=== PATIENT | male | born 1970 | race African-American/Black ===

== ENCOUNTER 2022-01-06 07:39 | Observation (INO) ==
--- NOTE | 2022-01-01 13:45 | Anesthesiology Consultation ---
Date of Service January 01, 2022 Assessment & Plan (1) Encounter for pre-operative examination: - check BSG am DOS. - COVID screening: Per para professional on 01/01/2022: Inmate, will need COVID test DOS. Matute ordered. Chart Review Chart Review: Acceptable Risk for Surgery and Patient NOT seen in Pre Admission Testing History Surgery Operation Date: 01/06/22 10:20 Proposed Procedures p Right Total Knee Arthroplasty - Jeffy Alyssa Cifuentes MD Height/Weight Height: 6 ft Weight: 112.945 kg Allergies Allergy/AdvReac Type Severity Reaction Status Date / Time morphine Allergy Unknown SCI MARY Verified 01/01/22 12:02 TWP LIST Pork/Porcine Containing Allergy Unknown SCI MARY Verified 01/01/22 12:02 Products TWP LIST tomato Allergy Unknown SCI MARY Verified 01/01/22 12:02 TWP LIST RED MEAT Allergy Unknown SCI MARY Uncoded 01/01/22 12:02 TWP LIST RED SAUCE Allergy Unknown SCI MARY Uncoded 01/01/22 12:02 TWP LIST Medications Home Medications Medication Instructions Recorded Confirmed Last Taken aspirin 81 mg tablet,delayed 81 mg PO DAILY 01/08/19 01/01/22 Unknown release (Aspir-) atorvastatin 40 mg tablet 40 mg PO DAILY 01/08/19 01/01/22 Unknown gabapentin 600 mg tablet 600 mg PO BID 01/08/19 01/01/22 01/08/19 insulin human U-100 NPH-regulr 30 unit subcut BID 01/08/19 01/01/22 01/08/19 06:30 70-30 mix 100 unit/mL subcutaneous susp (Humulin 70/30 U-100 Insulin) insulin regular human 100 unit/mL 1 sliding scale dose subcut UD 01/08/19 01/01/22 01/06/19 injection solution (Humulin R Regular U-100 Insulin) pantoprazole 40 mg tablet,delayed 40 mg PO BID 01/08/19 01/01/22 Unknown release amlodipine 10 mg tablet 10 mg PO DAILY 01/01/22 01/01/22 Unknown diclofenac sodium 50 mg 50 mg PO TID 01/01/22 01/01/22 Unknown tablet,delayed release gabapentin 800 mg tablet 800 mg PO BID 01/01/22 01/01/22 Unknown hydrochlorothiazide 25 mg tablet 25 mg PO DAILY 01/01/22 01/01/22 Unknown lisinopril 40 mg tablet 40 mg PO DAILY 01/01/22 01/01/22 Unknown metformin 1,000 mg tablet 1,000 mg PO BID 01/01/22 01/01/22 Unknown Past Medical History Medical History (Updated 01/01/22 @ 13:41 by Jordyn Nolan PA-C) Antisocial personality disorder Diabetes mellitus, type 2 IDDM GERD (gastroesophageal reflux disease) History of COVID-19 03/11/2020 Hyperlipidemia Hypertension 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 Sleep apnea Past Surgical History Surgical History H/O fasciotomy LEFT LEG +SKIN GRAFT Social History Smoking Status: Unknown if ever smoked Testing Laboratory Results 12/08/2021 WBC: 5.8 H/H: 14/42 PLATELETS: 349 SODIUM: 140 POTASSIUM: 4.4 CHLORIDE: 102 CO2: 26 BUN: 14 CREATININE: 1.1 GLUCOSE: 86 A1c: 7.4% PT: 10.9 PTT: 30 INR: 0.9 UA: straw color, clear, negative Electrocardiogram Date: 12/09/21 Sinus bradycardia, rate 58 bpm Chest X-Ray Date: 12/08/21 No radiographic evidence of active TB or acute cardiopulmonary disease
[~2022-01-06 07:39] MED LIST: ACETAMINOPHEN 500 MG TAB PO SCH; BUPIVACAINE 0.5 % 5 MG/1 ML PF 10ML VIAL ONE; CeleBREX 200 MG CAP PO SCH; EPINEPHrine INJ 1 MG/ML AMP ONE; LR 500ML BOLUS, THEN 15ML/HR IV SCH; LR 60ML/HR IV SCH; ROPIVACAINE 0.5% 5 MG/ML 30 ML VIAL ONE; ROPIVACAINE 0.5% HCL/PF 150 MG, BUPIVACAINE 0.75% MPF 20 ML, EPINEPHrine 0.15 MG, Ketor... INFIL SCH; Scopolamine 1 MG TDSY TD SCH; TRANEXAMIC ACID 1,000 MG **IV Intra-op IV SCH; TRANEXAMIC ACID 1,000 MG **IV Pre-op IV SCH; ceFAZolin 2000MG 2,000 MG/15 ML SYR IV SCH
[2022-01-06] MEDS ORDERED: MIDAZOLAM HCL 1 MG/ML 2ML VIAL ONE (08:08)
[2022-01-06] MEDS ORDERED: fentaNYL citrate 100 MCG/2 ML VIAL ONE (08:09)
--- NOTE | 2022-01-06 09:58 | History & Physical Bridge Note ---
Date of Service January 06, 2022 History & Physical Bridge Note I have examined the patient, reviewed the History & Physical and in the interval since the performance of the History & Physical I have noted the following changes of clinical significance: no changes noted Patient is aware of the risks, is asymptomatic, and tested negative for COVID- 19.
[2022-01-06] MEDS ORDERED: ORTHO JOINT ANESTHETIC ONE (10:13)
[2022-01-06] MEDS ORDERED: fentaNYL citrate 100 MCG/2 ML VIAL IV PRN (10:33)
[2022-01-06] MEDS ORDERED: PROMETHAZINE HCL 12.5 MG in SODIUM CHLORIDE 0.9% 50 ML IV PRN (10:33)
[2022-01-06] MEDS ORDERED: FLUMAZENIL 0.1 MG/1 ML 10 ML VIAL IV PRN (10:33)
[2022-01-06] MEDS ORDERED: ATROPINE SULFATE 0.1 MG/ML 10ML SYR IV PRN (10:33)
[2022-01-06] MEDS ORDERED: ePHEDrine sulfate 50 MG/ML AMP IV PRN (10:33)
[2022-01-06] MEDS ORDERED: ONDANSETRON INJ 2 MG/ML 2 ML VIAL IV PRN ×2 (10:33→15:55)
[2022-01-06] MEDS ORDERED: NALOXONE HCL 0.4 MG/1 ML VIAL/CARP IV PRN ×2 (10:33→15:55)
[2022-01-06] MEDS ORDERED: GLYCOPYRROLATE 0.2 MG/ML VIAL ONE (10:59)
[2022-01-06] MEDS ORDERED: ePHEDrine sulfate 50 MG/ML SYR ONE (10:59)
[2022-01-06] MEDS ORDERED: ONDANSETRON INJ 2 MG/ML 2 ML VIAL ONE (11:08)
[2022-01-06] MEDS ORDERED: ePHEDrine sulfate 50 MG/ML AMP ONE (11:08)
[2022-01-06] MEDS ORDERED: PROMETHAZINE HCL INJ 25 MG/ML 1 ML VIAL ONE (11:16)
[2022-01-06] MEDS ORDERED: DEXAMETHASONE SOD INJ 4 MG/ML VIAL ONE (11:16)
[2022-01-06] MEDS ORDERED: PROPOFOL IV EMULSION 10 MG/ML 20 ML VIAL IV ONE (11:29)
[2022-01-06] MEDS ORDERED: METOCLOPRAMIDE HCL INJ 5 MG/ML 2 ML VIAL ONE (11:31)
--- NOTE | 2022-01-06 13:07 | Operative Report ---
Post Operative Report Pre & Post Diagnosis Operation Date: 01/06/22 10:20 Pre-Op Diagnosis: Right knee osteoarthritis. Post-Op Diagnosis: Right knee osteoarthritis. I identified the patient and participated in the time-out.: Yes Procedure Operation Date: 01/06/22 10:20 Actual Procedures p Right Total Knee Arthroplasty(Right) - Jeffy Cifuentes MD Surgeon Jeffy Cifuentes MD Processing Tech Emory Shook PA-C (No fellow avail) Estimated Blood Loss 120 Findings See Below Fluids 2000 cc Specimens Right knee contents Anesthesia Type MAC Spinal Regional Complications none I attest to the content of the Intraoperative Record and any orders documented therein. Any exceptions are noted below.
--- NOTE | 2022-01-06 13:13 | Operative Report ---
Post Operative Report Pre & Post Diagnosis Operation Date: 01/06/22 10:20 Pre-Op Diagnosis: Right knee osteoarthritis. Post-Op Diagnosis: Right knee osteoarthritis. I identified the patient and participated in the time-out.: Yes Procedure Operation Date: 01/06/22 10:20 Actual Procedures p Right Total knee replacement[, imageless computer assisted navigation] - Jeffy Cifuentes MD Surgeon Jeffy Cifuentes MD Customs Agent Emory Shook PA-C (No fellow avail) Estimated Blood Loss 120 Findings See Below Examined Under Anesthesia: ROM -- There was 0 degrees to 125 degrees of flexion Ligamentous examination -- revealed stable Kirk, posterior drawer, varus and valgus stress at 0 and 30 degrees. [place] Type IV changes of Lateral compartment, Type III changes medial and patellofemoral compartments. Marginal and intercondylar Osteophytes. Fluids 2000 cc Specimens Right knee contents Anesthesia Type MAC Spinal Regional Complications none Indications This is a 51-year-old male who has clinical and radiographic findings consistent with osteoarthritis of the a right knee. I recommended that a right total knee replacement be performed. The patient understands the risks of surgery, which include but not limited to: bleeding, infection, re-operation, damage to nerves and arteries, continued knee pain, knee stiffness, DVT, and . The patient understands all of these instructions and explanations, all of his questions have been satisfactorily addressed and the patient has elected to proceed. Informed consent was signed. Description of Procedure IMPLANTS: 1. Femur: Triathlon #7 Right PS. 2. Tibia: Triathlon #6 [place]. 3. Insert: Triathlon #6 x 9 mm PS X3 poly. 4. Patella: Triathlon A35 x 10 mm X3 poly. 5. Palacos cement. Emory Shook PA-C is assisting with positioning, retracting, and closure due to fellow not available. Procedure: The patient was taken to the Operating Room and placed in the supine position after spinal and adductor canal nerve block was administered. My initials and a multidisciplinary time-out were used to identify the right leg as the correct operative limb. A tourniquet was placed high in the thigh. Prior to the incision, 2 grams of intravenous Ancef were given. The right leg was then prepped and draped in a standard sterile fashion. An Esmarch was used to exsanguinate the leg and the tourniquet was inflated to 250 mmHg. The planned mid-line 20 cm incision was created exposing the extensor mechanism. The medial parapatellar arthrotomy was made and the patella was everted. The patella was addressed first. It was prepared by reaming from 27 mm down to 17 mm. An A35 button was found to fit best. The peg holes were made in the standard fashion. The femur was addressed next and using computer assisted OrthoAlign with 3 degrees of flexion and 0 degrees of valgus, removing 10 mm in the standard fashion for the distal cut. The cut was made and the 4-in-1 cutting block for a size 7 femur was placed. These cuts and the cuts to place the box were made in the standard fashion. Our attention was then drawn to the tibia cut with using imageless computer assisted OrthoAlign, taking 2 mm from the lateral low side. There was sufficient extension and flexion gap to fit a 9 mm spacer. A #6 Tibial baseplate fit well. A trial with a 9 mm spacer showed excellent stability in both flexion and extension, with good ligament balance, a small lateral release allowed for thumbs free patellar tracking. Range of motion of 0-125 degrees. The tibial baseplate was prepped for the keel and stem. All components were removed. 90 ml of total knee cocktail were injected into the soft tissues and periosteum. All surfaces were copiously irrigated prior to placement of the components. The femoral component followed by Tibial baseplate were cemented in place and the 9 mm X3 poly was placed. Next, the patellar button was placed using the same cement. Once the cement had cured, the range of motion and stability were unchanged. The tourniquet was deflated. Hemostasis was obtained. The extensor mechanism was closed with 1-0 and 0 Vicryl with the knee bent approximately 60 degrees in a standard fashion. The peritenon and deep fascia was closed with 2-0 Vicryl. The subcutaneous layer was closed with 3-0 Vicryl. The skin was closed with Zipline and shield. The limb was cleaned and dried. 4x4 dressing was placed over top followed by ABDs, sterile Webril, and a foot to thigh John bandage. The patient was then transferred to the Recovery Room in stable condition. The sponge and needle counts were correct. POST-OP INSTRUCTIONS: The patient will be WBAT. The patient will be admitted to the hospital. Labs will be obtained during the stay. DVT prophylaxis will included aspirin for 6 weeks, TEDs, and mechanical foot pumps. The dressing will be changed prior to their discharge or postop day #2 and covered with a Silverlon dressing, whichever comes first as long as the incision as dry. I attest to the content of the Intraoperative Record and any orders documented therein. Any exceptions are noted below.
--- NOTE | 2022-01-06 13:25 | Operative Report ---
Post Operative Report Pre & Post Diagnosis Operation Date: 01/06/22 10:20 Pre-Op Diagnosis: Right knee osteoarthritis. Post-Op Diagnosis: Right knee osteoarthritis. I identified the patient and participated in the time-out.: Yes Procedure Operation Date: 01/06/22 10:20 Actual Procedures p Right Total Knee Arthroplasty(Right) - Jeffy Cifuentes MD Surgeon Shamir Cutler M.D. Technology Sales Consultant Emory Shook PA-C (No fellow avail) Estimated Blood Loss 120 Findings Consistent with Post-Op Diagnosis DJD right knee Specimens bone and soft tissue Anesthesia Type MAC Spinal Regional Description of Procedure Patient was taken to the operating room placed under IV sedation spinal anesthesia. He was given a peripheral nerve block preoperatively. He was given 2 g of IV Ancef for surgical prophylaxis. Time out was performed. He was prepped and draped in routine sterile fashion. I was present during the entire entire case and assisted with tissue retraction, positioning, implantation of hardware, cementing, hemostasis, closure and dressings. Please see Dr. Cifuentes's operative report for further detail. Patient was awakened and transferred to the recovery room in stable condition. I attest to the content of the Intraoperative Record and any orders documented therein. Any exceptions are noted below.
--- NOTE | 2022-01-06 13:53 | XRay Report ---
XR knee RT 1 or 2V routine CLINICAL HISTORY: Surgical Post Op TECHNIQUE: 2 views of the right knee were obtained. Comparison: Comparison is made to older radiograph 07/30/2020 FINDINGS: Patient is status post total knee arthroplasty with expected postsurgical changes including soft tiss ue swelling and subcutaneous emphysema. No periarticular lucency or hardware fracture is seen. IMPRESSION: Expected postoperative appearance status post placement of total knee arthroplasty. ACT 112: Negative or not required by law. Electronically signed by: Raffaele Webb M.D. 01/06/2022 1:51 PM
--- NOTE | 2022-01-06 14:32 | Anesthesiology Progress Note ---
Date of Service January 06, 2022 Anesthesia Post Procedure Vital Signs Vital Signs: Temp Pulse Pulse Resp BP BP Pulse Ox 01/06/22 14:29 36.4 C L 81 24 122/69 100 01/06/22 14:20 80 25 H 126/67 98 01/06/22 14:10 83 23 127/66 97 01/06/22 14:00 81 20 122/68 98 01/06/22 13:50 77 24 134/68 99 01/06/22 13:40 80 24 127/67 100 01/06/22 13:30 79 23 122/65 100 01/06/22 13:21 36.7 C 76 23 125/63 100 01/06/22 08:05 36.9 C 65 20 148/81 H 97 O2 Del Method O2 Flow Rate 01/06/22 14:29 Room Air 01/06/22 14:20 Room Air 01/06/22 14:10 Room Air 01/06/22 14:00 Room Air 01/06/22 13:50 Oxymask 2 01/06/22 13:40 Oxymask 5 01/06/22 13:30 Oxymask 5 01/06/22 13:21 Oxymask 5 01/06/22 08:05 Room Air Pain Intensity Left Knee: Pain Intensity: 8 Transfer of Care Handoff Completed per policy Notes Mental Status: alert / awake / arousable Patient Amnestic to Procedure: Yes Nausea / Vomiting: adequately controlled Pain: adequately controlled Airway Patency, RR, SpO2: stable & adequate BP & HR: stable & adequate Hydration State: stable & adequate Neuraxial Anesthesia: was administered and sensory block is resolving Anesthetic Complications: no major complications apparent
[2022-01-06] MEDS ORDERED: bisacodyL 10 MG SUPP PR PRN (15:55)
[2022-01-06] MEDS ORDERED: HYDROmorphone INJ 0.5 MG/0.5 ML SYR IV PRN (15:55)
[2022-01-06] MEDS ORDERED: TAMSULOSIN HCL 0.4 MG CAP PO PRN (15:55)
[2022-01-06] MEDS ORDERED: MAGNESIUM HYDROXIDE SUSP 30 ML UDC PO PRN (15:55)
[2022-01-06] MEDS ORDERED: METOCLOPRAMIDE HCL INJ 5 MG/ML 2 ML VIAL IV PRN (15:55)
[2022-01-06] MEDS ORDERED: diphenhydrAMINE 50 MG/ML VIAL IV PRN (15:55)
[2022-01-06] MEDS ORDERED: PHARMACY GLYCEMIC MGMT CONSULT PRN (15:55)
--- NOTE | 2022-01-06 16:10 | Hospitalist Consultation ---
Date of Consultation January 06, 2022 Assessment & Plan (1) Status post right knee replacement: -Patient is currently afebrile, hemodynamically stable, and stable on RA -Pain control, Antibiotics, DVT PPX, and IV fluids per the primary team -No reported complications -Agree with AM labs to monitor Hgb, renal function, and electrolytes -Agree with continuing Gabapentin (2) Heart murmur: -No apparent history of previously diagnosed murmur -Patient is asymptomatic and Euvolemic -Will get TTE during this admission to monitor for valvular abnormalities (3) Sleep apnea: -Ordered HS CPAP (4) Hypertension: -Agree with continuing Amlodipine, HCTZ, and Lisinopril tomorrow as long as patient is hemodynamically stable with stable renal function and electrolytes (5) Hyperlipidemia: -Continue atorvastatin (6) GERD (gastroesophageal reflux disease): -Continue BID pantoprazole (7) Diabetes mellitus, type 2: -Hold metformin -Will switch NPO to basal/bolus regimen -Monior BSG ACHS -Goal BSG between 110-140 -Will start with 11 units Lantus BID -Correction factor of 40 and Carb ration of 13 -Pharmacy glycemic consult placed by surgical team but they will take over tomorrow Plan The patient was seen with and discussed with Dr. Garcia at the time of the consult Supervising Physician Co-Signing Physician Notes Patient seen and examined, chart reviewed, case discussed with Lenny Cash PA-C and I agree with the assessment and plan as above except as otherwise noted Labs and images reviewed Roland is a 51-year-old male with a past medical history of hypertension, type 2 diabetes, GERD who presents for right knee TKA 2/2 right knee osteoarthritis. S/p right TKA 01/06/2022. Seen at bedside with SAVI Virk.Lavonne. Denies chest pain, chest pressure, SoB, difficulty breathing, fever, numbness, tingling, and weakness. Doing well post-op, hungry but no other concerns. CTAB/chest rise symmetrical, HR is regular 77 at time of assessment. Patient does have a 3/6 systolic murmur on exam which was not previously known to him. Denies history of valvular disease/septal defects. Follow-up echo pending. TKA: DVT prophylaxis, pain control, ambulation per primary team. Postoperatively normotensive, on room air, mild tachycardia likely reactive Type II DM: On NPH/regular 7030 30 units twice daily plus sliding scale RISK TECH. Will switch to basal bolus/SSI as noted, glucose checks AC/at bedtime, goal BSG [id number]. Lantus 11 twice daily, CF 40, ratio 13. Hold home metformin. Continue gabapentin. Hypertension: Resume lisinopril 40 mg 01/07 if creatinine normal and BP normal/high. Resume amlodipine 10 mg daily. Systolic murmur: Asymptomatic, no exercise limitation or chest pain. Echo pending GERD: Continue PPI twice daily HLD: Continue atorvastatin LORRAINE: CPAP nightly History of Present Illness Reason for Consultation: Post-op medical management Requesting Physician: Jeffy Cifuentes MD Attending Physician: Dr. gayla Garcia History of Present Illness Roland is a 51 year old male with a PMH significant for HTN, hyperlipidemia, obesity, DM II, RA, LORRAINE on HS CPAP, and GERD who presented to the [facility] OR on 01/06/22 for Right Total Knee Arthroplasty with Dr. Cifuentes. Per the post-op note, there were no reported intra-operative complications, EBL was listed as 120 mL, and anesthesia was listed as MAC Spinal Regional. At the time of the exam the patient was resting comfortably in bed in no acute distress. He states he is feeling good post-op, he is a little tired. He denies any pain at the procedure site at this time. He has no complaints at the time of the exam. When asked, he states he has never been told he has a heart murmur previously. He does not currently experience exercise intolerance or dyspnea on exertion. Please refer to Dr. Garcia's attestation for any changes to the treatment plan Allergies Allergy/AdvReac Type Severity Reaction Status Date / Time morphine Allergy Unknown SCI MARY Verified 01/06/22 07:58 TWP LIST Pork/Porcine Containing Allergy Unknown SCI MARY Verified 01/06/22 07:58 Products TWP LIST tomato Allergy Unknown SCI MARY Verified 01/06/22 07:58 TWP LIST RED MEAT Allergy Unknown SCI MARY Uncoded 01/06/22 07:58 TWP LIST RED SAUCE Allergy Unknown SCI MARY Uncoded 01/06/22 07:58 TWP LIST Home Medications Medication Instructions Recorded Confirmed Type aspirin 81 mg tablet,delayed 81 mg PO DAILY 01/08/19 01/06/22 History release (Aspir-) atorvastatin 40 mg tablet 40 mg PO DAILY 01/08/19 01/06/22 History gabapentin 600 mg tablet 600 mg PO BID 01/08/19 01/06/22 History insulin human U-100 NPH-regulr 30 unit subcut BID 01/08/19 01/06/22 History 70-30 mix 100 unit/mL subcutaneous susp (Humulin 70/30 U-100 Insulin) insulin regular human 100 unit/mL 1 sliding scale dose subcut UD 01/08/19 01/06/22 History injection solution (Humulin R Regular U-100 Insulin) pantoprazole 40 mg tablet,delayed 40 mg PO BID 01/08/19 01/06/22 History release amlodipine 10 mg tablet 10 mg PO DAILY 01/01/22 01/06/22 History gabapentin 800 mg tablet 800 mg PO BID 01/01/22 01/06/22 History hydrochlorothiazide 25 mg tablet 25 mg PO DAILY 01/01/22 01/06/22 History lisinopril 40 mg tablet 40 mg PO DAILY 01/01/22 01/06/22 History metformin 1,000 mg tablet 1,000 mg PO BID 01/01/22 01/06/22 History Patient History Medical History (Updated 01/06/22 @ 16:48 by Lenny Cash PA-C) Antisocial personality disorder Diabetes mellitus, type 2 IDDM GERD (gastroesophageal reflux disease) History of COVID-19 03/11/2020 Hyperlipidemia Hypertension 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 Sleep apnea Surgical History (Updated 01/06/22 @ 16:12 by Lenny Cash PA-C) H/O fasciotomy LEFT LEG +SKIN GRAFT Social History Smoking Status: Unknown if ever smoked Current Living Situation: Other Current Living Situation Comment: [facility] Feels Safe at Home: Yes Review of Systems Review of Systems: Denies current fever, chills, headache, changes in vision, hearing, taste, and smell, chest pain, SOB, cough, abdominal pain, nausea, vomiting, diarrhea, hematemesis, melena, dysuria, hematuria, and recent falls. All systems have been reviewed and are otherwise negative. Physical Exam Physical Exam: Physical Exam: General: In no acute distress, stated age, well-nourished, good hygiene HEENT: Normocephalic, atraumatic, no scleral icterus, pupils around round, symmetrical, and reactive to light, moist mucus membranes, -JVD, trachea midline, no thyromegaly Chest/Pulm: No respiratory distress, symmetrical chest expansion, clear breath sounds throughout Cardiac: RRR, 3/6 systolic murmur noted Abdomen: Negative for ascites and bruising, normoactive bowel sounds, soft, non-tender to palpation throughout Musculoskeletal: Patiient with right LE current wrapped and without signs of drainage. Patient with intact sensation and motor function in the BL lower extremities Extremities: Radial, dorsalis pedis, and posterior tibial pulses are intact and symmetrical, no edema noted in the BL LE's Skin: Warm, dry, no rashes , lesions, or scars noted Neuro: Alert and oriented to person, place, month, year, and president, no focal defects, CN II-XII tested and intact, finger to nose test negative, no tremors noted Psych: No acute distress, calm and cooperative during the exam Results & Data Results & Data ([facility]) Vital Signs (Past 12 Hours) Vital Signs Temp Pulse Pulse Resp BP BP Pulse Ox 01/06/22 15:00 94 H 23 128/68 97 01/06/22 14:30 36.4 C L 81 24 122/69 100 01/06/22 14:20 80 25 H 126/67 98 01/06/22 14:10 83 23 127/66 97 01/06/22 14:00 81 20 122/68 98 01/06/22 13:50 77 24 134/68 99 01/06/22 13:40 80 24 127/67 100 01/06/22 13:30 79 23 122/65 100 01/06/22 13:21 36.7 C 76 23 125/63 100 01/06/22 08:05 36.9 C 65 20 148/81 H 97 O2 Del Method O2 Flow Rate 01/06/22 15:00 Room Air 01/06/22 14:30 Room Air 01/06/22 14:20 Room Air 01/06/22 14:10 Room Air 01/06/22 14:00 Room Air 01/06/22 13:50 Oxymask 2 01/06/22 13:40 Oxymask 5 01/06/22 13:30 Oxymask 5 01/06/22 13:21 Oxymask 5 01/06/22 08:05 Room Air Diagnostic Findings Knee X-Ray 01/06/22 13:33 XR knee RT 1 or 2V routine CLINICAL HISTORY: Surgical Post Op TECHNIQUE: 2 views of the right knee were obtained. Comparison: Comparison is made to older radiograph 07/30/2020 FINDINGS: Patient is status post total knee arthroplasty with expected postsurgical changes including soft tissue swelling and subcutaneous emphysema. No periarticular lucency or hardware fracture is seen. IMPRESSION: Expected postoperative appearance status post placement of total knee arthroplasty. ACT 112: Negative or not required by law. Electronically signed by: Raffaele Webb M.D. 01/06/2022 1:51 PM PG Care Time/CCT Total # of Minutes Spent Total Time Spent with Patient: Total time spent is greater than 50% in coordination of care (as documented) at patient's floor/unit and/or counseling patient: Coding Level of Care Code 43886 Office/OBS Consult Lvl 4 History Comprehensive Exam Comprehensive Medical Decision Making Moderate Complexity Diagnoses Status post right knee replacement Z96.651 Heart murmur R01.1 Sleep apnea G47.30 Hypertension I10 Hyperlipidemia E78.5 GERD (gastroesophageal reflux disease) K21.9 Diabetes mellitus, type 2 E11.9
[2022-01-06] MEDS ORDERED: DEXTROSE 50% 50 ML SYRINGE IV PRN (16:14)
[2022-01-06] MEDS ORDERED: GLUCAGON FOR INJ 1 MG VIAL SQ PRN (16:14)
[2022-01-06] MEDS ORDERED: GLUCOSE 40% GEL 15 GM TUBE PO PRN (16:14)
[2022-01-06] MEDS ORDERED: GLUCOSE 10 TAB/TUBE PO PRN (16:14)
[2022-01-06] MEDS: FERROUS GLUCONATE 324 MG TAB PO SCH (16:53)
[2022-01-06] MEDS: ASCORBIC ACID 500 MG TAB PO SCH (16:53)
[2022-01-06] MEDS: ACETAMINOPHEN 500 MG TAB PO SCH ×2 (16:54→21:05)
[2022-01-06] MEDS: SODIUM CHLORIDE 0.9% 1000ML 1,000 ML IV SCH (16:54)
[2022-01-06] MEDS: Scopolamine CHECK PATCH PLACEMENT SCH (16:56)
[2022-01-06] MEDS: INSULIN ASPART PER UNIT SC SCH ×2 (17:37→21:01)
[2022-01-06] MEDS: oxyCODONE HCL IR 5 MG TAB (IMMEDIATE RELEASE) PO PRN (18:37)
[2022-01-06] MEDS: ceFAZolin 2000MG 2,000 MG/15 ML SYR IV SCH (18:52)
[2022-01-06] MEDS ORDERED: LANTUS PER UNIT CHARGE SQ SCH (21:00)
[2022-01-06] MEDS: SENNA 8.6 MG TAB PO SCH (21:03)
[2022-01-06] MEDS: ASPIRIN 81 MG ECTAB PO SCH (21:03)
[2022-01-06] MEDS: GABAPENTIN 800 MG TAB PO SCH (21:04)
[2022-01-06] MEDS: GABAPENTIN 600 MG TAB PO SCH (21:04)
[2022-01-06] MEDS: PANTOprazole 40 MG TAB PO SCH (21:04)
[2022-01-06] MEDS: DOCUSATE SODIUM 100 MG CAP PO SCH (21:04)
[2022-01-06] MEDS: HYDROmorphone INJ 1 MG/ML SYRINGE IV PRN (21:05)
--- NOTE | 2022-01-06 21:07 | Orthopedic Progress Note ---
Date of Service January 06, 2022 Assessment & Plan (1) Osteoarthritis of right knee: Plan: POD #0 s/p R TKA, doing as well as expected. Resume diabetic diet. WBAT with walker. OOB to chair. Continue pain control. Check labs tomorrow. Change dressing to Silverlon POD #2 or prior to discharge whichever comes first. DVT prophylaxis: TEDs 3 weeks, foot pumps while in hospital, ASA 81 mg BID for 6 weeks. PT/OT. D/C planning. Present on Admission?: Yes Admission and Anticipated Discharge Date Admission Date: January 06, 2022 Subjective Right knee pain Physical Exam Physical Exam: RLE: BCR < 2 sec. Sensation to light touch is slightly diminished distally, but improving. Wiggling ankle and toes. Calf soft and non- tender. Dressing is clean, dry, intact. Results & Data ([facility]) Vital Signs (Past 12 Hours) Vital Signs Temp Pulse Pulse Resp BP Pulse Ox O2 Del Method 01/06/22 18:25 36.7 C 83 18 152/74 H 98 Room Air 01/06/22 17:42 82 16 143/84 H 99 Room Air 01/06/22 16:30 37.1 C 81 17 132/73 98 Room Air 01/06/22 15:00 94 H 23 128/68 97 Room Air 01/06/22 14:30 36.4 C L 81 24 122/69 100 Room Air 01/06/22 14:20 80 25 H 126/67 98 Room Air 01/06/22 14:10 83 23 127/66 97 Room Air 01/06/22 14:00 81 20 122/68 98 Room Air 01/06/22 13:50 77 24 134/68 99 Oxymask 01/06/22 13:40 80 24 127/67 100 Oxymask 01/06/22 13:30 79 23 122/65 100 Oxymask 01/06/22 13:21 36.7 C 76 23 125/63 100 Oxymask O2 Flow Rate 01/06/22 18:25 01/06/22 17:42 01/06/22 16:30 01/06/22 15:00 01/06/22 14:30 01/06/22 14:20 01/06/22 14:10 01/06/22 14:00 01/06/22 13:50 2 01/06/22 13:40 5 01/06/22 13:30 5 01/06/22 13:21 5 Laboratory Results Laboratory Results POC Glucose 258 mg/dl (70-99) H 01/06/22 20:46 Nasal Screen MRSA (PCR) Negative (Negative) 01/06/22 17:02 SARS-CoV-2, RNA, NAAT NEGATIVE (NEGATIVE) 01/06/22 07:54 Blood Type O Positive 01/06/22 07:52 Antibody Screen NEGATIVE 01/06/22 07:52 Impressions Knee X-Ray 01/06/22 13:33 XR knee RT 1 or 2V routine CLINICAL HISTORY: Surgical Post Op TECHNIQUE: 2 views of the right knee were obtained. Comparison: Comparison is made to older radiograph 07/30/2020 FINDINGS: Patient is status post total knee arthroplasty with expected postsurgical changes including soft tissue swelling and subcutaneous emphysema. No periarticular lucency or hardware fracture is seen. IMPRESSION: Expected postoperative appearance status post placement of total knee arthroplasty. ACT 112: Negative or not required by law. Electronically signed by: Raffaele Webb M.D. 01/06/2022 1:51 PM
[2022-01-07] MEDS: Scopolamine CHECK PATCH PLACEMENT SCH ×3 (00:01→15:28)
[2022-01-07] MEDS: INSULIN ASPART PER UNIT SC SCH ×6 (00:02→21:13)
[2022-01-07] MEDS: HYDROmorphone INJ 1 MG/ML SYRINGE IV PRN (01:56)
[2022-01-07] MEDS: ceFAZolin 2000MG 2,000 MG/15 ML SYR IV SCH (02:38)
[2022-01-07] MEDS: SODIUM CHLORIDE 0.9% 1000ML 1,000 ML IV SCH (02:43)
[2022-01-07] MEDS: ACETAMINOPHEN 500 MG TAB PO SCH ×3 (04:27→21:15)
[2022-01-07] MEDS: GABAPENTIN 800 MG TAB PO SCH ×2 (07:35→21:12)
[2022-01-07] MEDS: PANTOprazole 40 MG TAB PO SCH ×2 (07:35→21:14)
[2022-01-07] MEDS: GABAPENTIN 600 MG TAB PO SCH ×2 (07:36→21:15)
[2022-01-07] MEDS: lisinopril 40 MG TAB PO SCH (07:37)
[2022-01-07] MEDS: ATORVASTATIN 40 MG TAB PO SCH (07:37)
[2022-01-07] MEDS: hydroCHLOROthiazide 25 MG TAB PO SCH (07:37)
[2022-01-07] MEDS: ASPIRIN 81 MG ECTAB PO SCH ×2 (07:37→21:14)
[2022-01-07] MEDS: FERROUS GLUCONATE 324 MG TAB PO SCH ×2 (07:38→15:50)
[2022-01-07] MEDS: ASCORBIC ACID 500 MG TAB PO SCH ×2 (07:38→15:50)
[2022-01-07] MEDS: amLODIPine BESYLATE 5 MG TAB PO SCH (07:38)
[2022-01-07] MEDS: MULTIVITAMIN TAB PO SCH (07:38)
[2022-01-07] MEDS: DOCUSATE SODIUM 100 MG CAP PO SCH ×2 (07:38→21:12)
[2022-01-07] MEDS: oxyCODONE HCL IR 5 MG TAB (IMMEDIATE RELEASE) PO PRN (07:44)
[2022-01-07 07:52] LABS: Hematocrit (blood only) 36.3 % (40.1-51.0); Hemoglobin 12.3 g/dl (14.0-18.0); Mean Corpuscular Hemoglobin 26.9 pg (25.0-34.0); Mean Corpuscular Hgb Conc 33.9 g/dL (32.0-36.0); Mean Corpuscular Volume 79.4 fL (80.0-100.0); Mean Platelet Volume 9.6 fL (9.4-12.4); Platelet Count 233 K/uL (130-400); RDW Coefficient of Variation 14.2 % (11.5-14.5); RDW Standard Deviation 41.3 fL (36.4-46.3); Red Blood Count 4.57 M/uL (4.63-6.08); White Blood Count 12.26 K/ul (4.8-10.8)
--- NOTE | 2022-01-07 07:54 | Hospitalist Progress Note ---
Date of Service January 07, 2022 Assessment & Plan (1) Status post right knee replacement: Plan: POD#1 s/p Right Total Knee Arthroplasty(Right) - Jeffy Cifuentes MD. EBL 120cc H/h 13.9/41/2 pre-op --> h/h 12.3/36.3 WBC elevation likely secondary to surgery/stress/steroids. Afebrile Pain control/bowel regimen/PT/OT per primary service -> did get pain meds ~730 am and worked with PT around 1030. Did order 1x now dose oxycodone for pain control, attempting to limit IV pain medications as able. DVT Proph - ASA 81mg BID by primary service ECHO pending for murmur on exam without prior known history -- appears to have aortic stenosis on exam, however +S2, no angina/syncope/dyspnea reported. --> ECHO without significant aortic stenosis. LV mildly dilated. EF 60-65%. murmur could have been exacerbated by acute blood loss anemia as well Holding HCTZ until tomorrow, lisinopril resumed as kidney function stable PT/OT consulted -- notes not yet in but did witness patient working with therapy this morning and likely would benefit from short term inpatient rehab (patient wanting to go as well). Alerted CM, to assist. (2) Heart murmur: Plan: No apparent history of previously diagnosed murmur, ?worsened given anemia Iron panel checked due to MCV 79.4 w/o iron deficiency, no known hx thalassemia or other ECHO w/o significant valvular abnormalities Patient is asymptomatic and Euvolemic No symptoms (3) Sleep apnea: Plan: HS CPAP (4) Hypertension: Plan: BP elevations 2nd to pain Continues on amlodipine, lisinopril HCTZ to resume in AM given minimal dehydration on exam (5) Hyperlipidemia: Plan: Continue atorvastatin (6) GERD (gastroesophageal reflux disease): Plan: Continue BID pantoprazole (7) Diabetes mellitus, type 2: Plan: A1c 7.5 Holding metformin/insulin on admit Pharmacy on consult for glycemic management given steroids w/ surgery BSG elevation after steroids, 223 at 4am, improved to 182 on recent check Monitor BSG AC/HS Plan Thank you for allowing hospitalist service to participate in the care of Mr Freeman. Contacted CM regarding possible need (and want by patient/guards) for at least short inpatient rehab. They will look into this. Hospitalist service will sign off at this time. Please call with any questions/concerns. Admission and Anticipated Discharge Date Admission Date: January 06, 2022 Supervising Physician Co-Signing Physician Notes PA Supervision Note: I did not personally see or examine the patient today, but I verified all connell points of SAVI Spence's assessment and plan with the following exceptions/additions: Na+ 133 but when corrected for hyperglycemia, is in normal range at 135. Ok to resume HCTZ in AM. Pharmacy managing glucose. Subjective Eval this morning. Had been given pain medications around 8am but just recently worked with therapy and reporting pain 10/10 to the right knee. Just got fresh ice, requesting something for pain. Asked RN to provide 10mg x1 PO oxycodone. Now order placed. No CP/SOB. ECHO done this morning but not yet read. No CP/SOB/syncopal episodes reported. Discussed if any significant valvular heart disease will arrange f/u cards outpatient. Denies any known personal/family history of thalassemia. Eating/drinking now issues. +BS on exam. Per discussion with patient/guards, inquiring about inpatient rehab, possibly 2 weeks. Short staffed [facility] and prior prisoners who completed 2 weeks seemed to be back to their usual self in 2-3 months. Will touch base with CM based on PT recommendations. Sopalamine patch to L ear. Review of Systems Review of Systems: All systems reviewed & are unremarkable except as noted in HPI & below Physical Exam Physical Exam: General: WD/WN tall male laying flat in bed, guards at bedside, NAD but reporting moderate-severe R knee pain, ice pack in place HEENT: Head normocephalic, scopolamine patch behind L ear, trachea midline without deviation, mm slightly dry CV: RRR, +2-3/6 systolic murmur with radiation to RUSB, no pitting edema/calf tenderness, cap refill <3 seconds, pulses palpable GI: +BS, distended, nontender : no roberts MSK/Neuro: moves all extremities, no focal deficit, follows commands dressing to RIGHT knee c/d/i, dorsiflexion/plantar flexion intact, NVI, toes mobile, pulses palpable, ice pack in place Psych: Alert, oriented x 3, cooperative Results & Data Results & [facility] ([facility]) Vital Signs (Past 12 Hours) Vital Signs Temp Pulse Pulse Pulse Resp BP Pulse Ox 01/07/22 04:01 36.6 C 64 18 142/74 H 97 01/07/22 00:07 72 24 96 01/06/22 23:50 36.6 C 72 20 147/78 H 96 O2 Del Method 01/07/22 04:01 Room Air 01/07/22 00:07 01/06/22 23:50 BiPAP Laboratory Results 01/07/22 01/07/22 01/07/22 Range/Units 08:12 07:32 07:32 WBC (4.8-10.8) K/ul RBC (4.63-6.08) M/uL Hgb (14.0-18.0) g/dl Hct (40.1-51.0) % MCV (80.0-100.0) fL MCH (25.0-34.0) pg MCHC (32.0-36.0) g/dL RDW Std Deviation (36.4-46.3) fL RDW Coeff of Alda (11.5-14.5) % Plt Count (130-400) K/uL MPV (9.4-12.4) fL Sodium (136-145) mmol/L Potassium (3.5-5.1) mmol/L Chloride (98-107) mmol/L Carbon Dioxide (21-32) mmol/L Anion Gap (3-11) BUN (6-23) mg/dl Creatinine (0.6-1.4) mg/dl Est Cr Clr Drug Dosing ml/min Est GFR ( Amer) ml/min Est GFR (Non-Af Amer) ml/min BUN/Creatinine Ratio (10-20) Glucose (70-99(Fasting)) mg/dl POC Glucose 182 H (70-99) mg/dl Estimat Average Glucose 169 mg/dl Hemoglobin A1c 7.5 H (4.5-5.6) % Calcium (8.5-10.1) mg/dl Iron 90 (35-175) mcg/dl TIBC 262 (250-450) mcg/dl Unsaturated IBC 172 (155-355) mcg/dl Transferrin % Sat 34 (20-50) % Ferritin 35.1 (8-388) ng/ml Nasal Screen MRSA (PCR) (Negative) 01/07/22 01/07/22 01/07/22 Range/Units 07:32 07:32 04:03 WBC 12.26 H (4.8-10.8) K/ul RBC 4.57 L (4.63-6.08) M/uL Hgb 12.3 L (14.0-18.0) g/dl Hct 36.3 L (40.1-51.0) % MCV 79.4 L (80.0-100.0) fL MCH 26.9 (25.0-34.0) pg MCHC 33.9 (32.0-36.0) g/dL RDW Std Deviation 41.3 (36.4-46.3) fL RDW Coeff of Alda 14.2 (11.5-14.5) % Plt Count 233 (130-400) K/uL MPV 9.6 (9.4-12.4) fL Sodium 133 L (136-145) mmol/L Potassium 4.3 (3.5-5.1) mmol/L Chloride 101 (98-107) mmol/L Carbon Dioxide 25 (21-32) mmol/L Anion Gap 7 (3-11) BUN 19 (6-23) mg/dl Creatinine 1.16 (0.6-1.4) mg/dl Est Cr Clr Drug Dosing 97.0 ml/min Est GFR ( Amer) 83.5 ml/min Est GFR (Non-Af Amer) 72.0 ml/min BUN/Creatinine Ratio 16.4 (10-20) Glucose 210 H (70-99(Fasting)) mg/dl POC Glucose 223 H (70-99) mg/dl Estimat Average Glucose mg/dl Hemoglobin A1c (4.5-5.6) % Calcium 9.0 (8.5-10.1) mg/dl Iron (35-175) mcg/dl TIBC (250-450) mcg/dl Unsaturated IBC (155-355) mcg/dl Transferrin % Sat (20-50) % Ferritin (8-388) ng/ml Nasal Screen MRSA (PCR) (Negative) 01/06/22 01/06/22 01/06/22 Range/Units 23:48 20:46 17:02 WBC (4.8-10.8) K/ul RBC (4.63-6.08) M/uL Hgb (14.0-18.0) g/dl Hct (40.1-51.0) % MCV (80.0-100.0) fL MCH (25.0-34.0) pg MCHC (32.0-36.0) g/dL RDW Std Deviation (36.4-46.3) fL RDW Coeff of Alda (11.5-14.5) % Plt Count (130-400) K/uL MPV (9.4-12.4) fL Sodium (136-145) mmol/L Potassium (3.5-5.1) mmol/L Chloride (98-107) mmol/L Carbon Dioxide (21-32) mmol/L Anion Gap (3-11) BUN (6-23) mg/dl Creatinine (0.6-1.4) mg/dl Est Cr Clr Drug Dosing ml/min Est GFR ( Amer) ml/min Est GFR (Non-Af Amer) ml/min BUN/Creatinine Ratio (10-20) Glucose (70-99(Fasting)) mg/dl POC Glucose 247 H 258 H (70-99) mg/dl Estimat Average Glucose mg/dl Hemoglobin A1c (4.5-5.6) % Calcium (8.5-10.1) mg/dl Iron (35-175) mcg/dl TIBC (250-450) mcg/dl Unsaturated IBC (155-355) mcg/dl Transferrin % Sat (20-50) % Ferritin (8-388) ng/ml Nasal Screen MRSA (PCR) Negative (Negative) 01/06/22 01/06/22 Range/Units 16:45 13:24 WBC (4.8-10.8) K/ul RBC (4.63-6.08) M/uL Hgb (14.0-18.0) g/dl Hct (40.1-51.0) % MCV (80.0-100.0) fL MCH (25.0-34.0) pg MCHC (32.0-36.0) g/dL RDW Std Deviation (36.4-46.3) fL RDW Coeff of Alda (11.5-14.5) % Plt Count (130-400) K/uL MPV (9.4-12.4) fL Sodium (136-145) mmol/L Potassium (3.5-5.1) mmol/L Chloride (98-107) mmol/L Carbon Dioxide (21-32) mmol/L Anion Gap (3-11) BUN (6-23) mg/dl Creatinine (0.6-1.4) mg/dl Est Cr Clr Drug Dosing ml/min Est GFR ( Amer) ml/min Est GFR (Non-Af Amer) ml/min BUN/Creatinine Ratio (10-20) Glucose (70-99(Fasting)) mg/dl POC Glucose 210 H 176 H (70-99) mg/dl Estimat Average Glucose mg/dl Hemoglobin A1c (4.5-5.6) % Calcium (8.5-10.1) mg/dl Iron (35-175) mcg/dl TIBC (250-450) mcg/dl Unsaturated IBC (155-355) mcg/dl Transferrin % Sat (20-50) % Ferritin (8-388) ng/ml Nasal Screen MRSA (PCR) (Negative) PG Care Time/CCT Total # of Minutes Spent Total Time Spent with Patient: Total time spent is greater than 50% in coordination of care (as documented) at patient's floor/unit and/or counseling patient: Coding Level of Care Code 27907 Subseq Obs Care Lvl 3 Diagnoses Status post right knee replacement Z96.651 Heart murmur R01.1 Sleep apnea G47.30 Hypertension I10 Hyperlipidemia E78.5 GERD (gastroesophageal reflux disease) K21.9 Diabetes mellitus, type 2 E11.9
[2022-01-07 08:23] LABS: BUN Creatinine Ratio 16.4 (10-20); Est GFR (African American) 83.5 ml/min; Potassium 4.3 mmol/L (3.5-5.1)
[2022-01-07] MEDS: LANTUS PER UNIT CHARGE SQ SCH ×2 (08:50→21:10)
[2022-01-07 09:20] LABS: Estimated Average Glucose 169 mg/dl; Hemoglobin A1C 7.5 % (4.5-5.6)
--- NOTE | 2022-01-07 09:22 | Orthopedic Progress Note ---
Date of Service January 07, 2022 Assessment & Plan (1) Status post right knee replacement: Plan: POD1 s/p total knee arthroplasty WBAT with walker PT/OT Diet - regular Appreciate medicine management, echo ordered by medicine that is pending. Lisinopril/HCTZ currently being held pending labs Frequently ice and elevate with blankets stacked under ankle DVT prophylaxis: ASA 81mg BID x 6 weeks, TEDS x 3 weeks, foot pumps while in hospital Pain control: Tylenol 1000mg q 8hrs, oxycodone 5-10mg q4-6 hrs for moderate pain Vitamin C and Iron supplementation BID x 2 weeks Dressing: will change dressing to Mepilex dressing prior to discharge, patient can leave in-tact until f/u Discharge back to detention - will see this afternoon how patient does with PT and if he is medically stable for discharge pending echo and labs Follow up as scheduled with [facility] in 2 weeks Admission and Anticipated Discharge Date Admission Date: January 06, 2022 Subjective Pt was seen and examined bedside. POD #1 s/p RTKA. Pt was admitted last night for observation. BP 161/81 otherwrise Vitals are stable. Medicine consulted for medical management. Murmur noted on exam and echo ordered, pending. X-rays show normal post operative changed. Pt reports they are doing well but having some pain. He says the oxycodone does not do much for him. They are tolerating PO intake and voiding adequate amounts. Will be working with PT/OT. Endorses some tingling in his distal leg. Pt denies F/C, N/V/D, SOB, CP. Physical Exam Physical Exam: General: Pt laying in hospital bed AA&O, in NAD, calm and cooperative during exam Lower Extremity: Dressing in tact and not saturated.Pt is able to wiggle his toes. He has difficult time doing AROM of ankle. He is unable to do SLR this morning. Calf supple and non tender. NVI with sensation to light touch distally. Lower extremity noted to have good color and temperature with no signs of vascular or lymphatic insufficiency. Results & Data ([facility]) Vital Signs (Past 12 Hours) Vital Signs Temp Pulse Pulse Pulse Resp BP Pulse Ox 01/07/22 08:17 36.5 C 68 17 161/81 H 99 01/07/22 04:01 36.6 C 64 18 142/74 H 97 01/07/22 00:07 72 24 96 01/06/22 23:50 36.6 C 72 20 147/78 H 96 O2 Del Method 01/07/22 08:17 Room Air 01/07/22 04:01 Room Air 01/07/22 00:07 01/06/22 23:50 BiPAP Laboratory Results 01/07/22 01/07/22 01/07/22 Range/Units 08:12 07:32 07:32 WBC (4.8-10.8) K/ul RBC (4.63-6.08) M/uL Hgb (14.0-18.0) g/dl Hct (40.1-51.0) % MCV (80.0-100.0) fL MCH (25.0-34.0) pg MCHC (32.0-36.0) g/dL RDW Std Deviation (36.4-46.3) fL RDW Coeff of Alda (11.5-14.5) % Plt Count (130-400) K/uL MPV (9.4-12.4) fL Sodium 133 L (136-145) mmol/L Potassium 4.3 (3.5-5.1) mmol/L Chloride 101 (98-107) mmol/L Carbon Dioxide 25 (21-32) mmol/L Anion Gap 7 (3-11) BUN 19 (6-23) mg/dl Creatinine 1.16 (0.6-1.4) mg/dl Est Cr Clr Drug Dosing 97.0 ml/min Est GFR ( Amer) 83.5 ml/min Est GFR (Non-Af Amer) 72.0 ml/min BUN/Creatinine Ratio 16.4 (10-20) Glucose 210 H (70-99(Fasting)) mg/dl POC Glucose 182 H (70-99) mg/dl Estimat Average Glucose Pending Hemoglobin A1c Pending Calcium 9.0 (8.5-10.1) mg/dl Nasal Screen MRSA (PCR) (Negative) Blood Type Antibody Screen 01/07/22 01/07/22 01/06/22 Range/Units 07:32 04:03 23:48 WBC 12.26 H (4.8-10.8) K/ul RBC 4.57 L (4.63-6.08) M/uL Hgb 12.3 L (14.0-18.0) g/dl Hct 36.3 L (40.1-51.0) % MCV 79.4 L (80.0-100.0) fL MCH 26.9 (25.0-34.0) pg MCHC 33.9 (32.0-36.0) g/dL RDW Std Deviation 41.3 (36.4-46.3) fL RDW Coeff of Alda 14.2 (11.5-14.5) % Plt Count 233 (130-400) K/uL MPV 9.6 (9.4-12.4) fL Sodium (136-145) mmol/L Potassium (3.5-5.1) mmol/L Chloride (98-107) mmol/L Carbon Dioxide (21-32) mmol/L Anion Gap (3-11) BUN (6-23) mg/dl Creatinine (0.6-1.4) mg/dl Est Cr Clr Drug Dosing ml/min Est GFR ( Amer) ml/min Est GFR (Non-Af Amer) ml/min BUN/Creatinine Ratio (10-20) Glucose (70-99(Fasting)) mg/dl POC Glucose 223 H 247 H (70-99) mg/dl Estimat Average Glucose Hemoglobin A1c Calcium (8.5-10.1) mg/dl Nasal Screen MRSA (PCR) (Negative) Blood Type Antibody Screen 01/06/22 01/06/22 01/06/22 Range/Units 20:46 17:02 16:45 WBC (4.8-10.8) K/ul RBC (4.63-6.08) M/uL Hgb (14.0-18.0) g/dl Hct (40.1-51.0) % MCV (80.0-100.0) fL MCH (25.0-34.0) pg MCHC (32.0-36.0) g/dL RDW Std Deviation (36.4-46.3) fL RDW Coeff of Alda (11.5-14.5) % Plt Count (130-400) K/uL MPV (9.4-12.4) fL Sodium (136-145) mmol/L Potassium (3.5-5.1) mmol/L Chloride (98-107) mmol/L Carbon Dioxide (21-32) mmol/L Anion Gap (3-11) BUN (6-23) mg/dl Creatinine (0.6-1.4) mg/dl Est Cr Clr Drug Dosing ml/min Est GFR ( Amer) ml/min Est GFR (Non-Af Amer) ml/min BUN/Creatinine Ratio (10-20) Glucose (70-99(Fasting)) mg/dl POC Glucose 258 H 210 H (70-99) mg/dl Estimat Average Glucose Hemoglobin A1c Calcium (8.5-10.1) mg/dl Nasal Screen MRSA (PCR) Negative (Negative) Blood Type Antibody Screen 01/06/22 01/06/22 Range/Units 13:24 07:52 WBC (4.8-10.8) K/ul RBC (4.63-6.08) M/uL Hgb (14.0-18.0) g/dl Hct (40.1-51.0) % MCV (80.0-100.0) fL MCH (25.0-34.0) pg MCHC (32.0-36.0) g/dL RDW Std Deviation (36.4-46.3) fL RDW Coeff of Alda (11.5-14.5) % Plt Count (130-400) K/uL MPV (9.4-12.4) fL Sodium (136-145) mmol/L Potassium (3.5-5.1) mmol/L Chloride (98-107) mmol/L Carbon Dioxide (21-32) mmol/L Anion Gap (3-11) BUN (6-23) mg/dl Creatinine (0.6-1.4) mg/dl Est Cr Clr Drug Dosing ml/min Est GFR ( Amer) ml/min Est GFR (Non-Af Amer) ml/min BUN/Creatinine Ratio (10-20) Glucose (70-99(Fasting)) mg/dl POC Glucose 176 H (70-99) mg/dl Estimat Average Glucose Hemoglobin A1c Calcium (8.5-10.1) mg/dl Nasal Screen MRSA (PCR) (Negative) Blood Type O Positive Antibody Screen NEGATIVE
[2022-01-07 10:26] LABS: Ferritin 35.1 ng/ml (8-388)
[2022-01-07] MEDS ORDERED: oxyCODONE HCL IR 5 MG TAB (IMMEDIATE RELEASE) PO STA (10:49)
--- NOTE | 2022-01-07 13:22 | Pharmacy Report ---
Pharmacy Glycemic Short Note 2 - Date of Service January 07, 2022 - Glycemic Short BSG Results (Last 24 hours): 01/06/22 01/06/22 01/06/22 13:24 16:45 20:46 Glucose POC Glucose 176 H 210 H 258 H 01/06/22 01/07/22 01/07/22 23:48 04:03 07:32 Glucose 210 H POC Glucose 247 H 223 H 01/07/22 01/07/22 08:12 12:01 Glucose POC Glucose 182 H 195 H OUTPATIENT ANTIDIABETIC REGIMEN: * Humulin 70/30 - 30 units BID * Humulin R TIDM * metformin 1 gm PO BID * HbA1C = 7.5% (01/07/22) ASSESSMENT: * Mr Freeman is a 51 y/o M with a PMH of T2DM who presents for knee replacement. * Patient received dexamethasone 4 mg IV intraop. His BSGs yesterday, POD 0, were 276-136-176-258 mg/dL and overnight were 247-223 mg/dL. He received 9 units overnight. * Fasting today is 182 mg/dL. * Will start Lantus weight-based stress of 2 for 20 units BID. * Novolog weight-based stress of 2 for CF with tight CR due to steroid use. * Hold metformin and consider initiation on 01/08/22. PLAN FOR INPATIENT GLYCEMIC CONTROL: * Hold outpatient oral diabetes medications * Basal insulin * Lantus 20 units SQ BID * Bolus insulin * NovoLog per scale ACHS or Q6hrs while NPO * Goal Range: Low 110 mg/dL - High 140 mg/dL * Correction Factor: 20 mg/dL/unit * Nutritional / Prandial insulin per carb ratio of 1 unit per 5 grams CHO consumed
--- NOTE | 2022-01-07 15:26 | Orthopedic Progress Note ---
Date of Service January 07, 2022 Assessment & Plan (1) Status post right knee replacement: Plan: POD1 s/p total knee arthroplasty WBAT with walker PT/OT Diet - regular Appreciate medicine input, echo normal, lisinopril resumed Frequently ice and elevate with blankets stacked under ankle DVT prophylaxis: ASA 81mg BID x 6 weeks, TEDS x 3 weeks, foot pumps while in hospital Pain control: Tylenol 1000mg q 8hrs, oxycodone 5-10mg q4-6 hrs for moderate- severe pain, added Toradol 15mg q 6 x 3 doses IV - trying to stay away from IV pain meds due to patient drug abuse history Vitamin C and Iron supplementation BID x 2 weeks Dressing: will change dressing to Mepilex dressing tomorrow, patient can leave in-tact until f/u Discharge possible to [facility] tomorrow, CM following Follow up as scheduled with [facility] in 2 weeks Admission and Anticipated Discharge Date Admission Date: January 06, 2022 Subjective Pt seen and examined bedside. Says his pain is 10/10. He did not do as well as expected with PT/OT. Case management recommending inpatient rehab. Physical Exam Physical Exam: General: Pt laying in hospital bed AA&O, in NAD, calm and cooperative during exam Lower Extremity: Dressing in tact and not saturated.Pt is able to wiggle his toes and has better AROM of ankle. Able to DF/PF against some minor resistance. He is able to slightly do SLR a couple inches off the bed. Results & Data ([facility]) Vital Signs (Past 12 Hours) Vital Signs Temp Pulse Resp BP Pulse Ox O2 Del Method 01/07/22 15:13 36.9 C 68 17 160/86 H 96 Room Air 01/07/22 12:01 36.3 C L 67 18 153/80 H 98 Room Air 01/07/22 08:17 36.5 C 68 17 161/81 H 99 Room Air 01/07/22 04:01 36.6 C 64 18 142/74 H 97 Room Air
[2022-01-07] MEDS: KETOROLAC TROMETHAMINE 15 MG/ML VIAL IV SCH ×2 (15:49→21:11)
[2022-01-07] MEDS: SENNA 8.6 MG TAB PO SCH (21:12)
[2022-01-08] MEDS: Scopolamine CHECK PATCH PLACEMENT SCH ×2 (00:55→08:25)
[2022-01-08] MEDS: oxyCODONE HCL IR 5 MG TAB (IMMEDIATE RELEASE) PO PRN ×3 (02:27→14:06)
[2022-01-08] MEDS: KETOROLAC TROMETHAMINE 15 MG/ML VIAL IV SCH (04:21)
[2022-01-08] MEDS: ACETAMINOPHEN 500 MG TAB PO SCH ×2 (05:14→13:46)
[2022-01-08] MEDS: ASCORBIC ACID 500 MG TAB PO SCH (08:27)
[2022-01-08] MEDS: ATORVASTATIN 40 MG TAB PO SCH (08:30)
[2022-01-08] MEDS: ASPIRIN 81 MG ECTAB PO SCH (08:30)
[2022-01-08] MEDS: amLODIPine BESYLATE 5 MG TAB PO SCH (08:30)
[2022-01-08] MEDS: GABAPENTIN 800 MG TAB PO SCH (08:31)
[2022-01-08] MEDS: lisinopril 40 MG TAB PO SCH (08:31)
[2022-01-08] MEDS: DOCUSATE SODIUM 100 MG CAP PO SCH (08:31)
[2022-01-08] MEDS: GABAPENTIN 600 MG TAB PO SCH (08:31)
[2022-01-08] MEDS: hydroCHLOROthiazide 25 MG TAB PO SCH (08:31)
[2022-01-08] MEDS: PANTOprazole 40 MG TAB PO SCH (08:31)
[2022-01-08] MEDS: MULTIVITAMIN TAB PO SCH (08:31)
[2022-01-08] MEDS: INSULIN ASPART PER UNIT SC SCH ×2 (08:35→13:45)
[2022-01-08] MEDS: LANTUS PER UNIT CHARGE SQ SCH (08:47)
--- NOTE | 2022-01-08 09:28 | Orthopedic Progress Note ---
Date of Service January 08, 2022 Assessment & Plan (1) Status post right knee replacement: Plan: Patient's dressings were changed this morning. Silverlon dressing was applied. Knee-high OSVALDO hose was applied. Patient was encouraged to work on his heel props as well as straight leg raises and range of motion. Continue with PT/OT. Anticipate transfer to [facility] today if a bed is available. Continue oral pain medication as needed. Follow-up in the office in 2 weeks as scheduled for Zipline removal. Admission and Anticipated Discharge Date Admission Date: January 06, 2022 Subjective Patient is seen in his room this morning. He was napping at the time, but easily woke. He states he has been trying to do his exercises. He denies any chest pain or shortness of breath. No nausea or vomiting. He continues to complain of knee pain. No additional complaints. Physical Exam 2 Physical Exam: General: Well-developed, well-nourished, middle-aged male, in no acute distress. Sitting in bed. Alert and oriented. Conversive. Skin: Warm dry with good turgor. Postsurgical dressings are in place. There is no bleeding on the exterior. Upon removal, he does have some scant dried blood on his inner dressings. Zip line is in place. Expected postoperative edema. No ecchymosis. No active bleeding. Musculoskeletal: Patient has intact motor function of his ankle for dorsiflexion and plantarflexion. He has some difficulty setting his quad. He is able to do a straight leg raise with some difficulty. He has full terminal extension. Neurologic: Gross sensation is intact across the right leg by soft touch. Peripheral pulses are 2+. Results & Data ([facility]) Vital Signs (Past 12 Hours) Vital Signs Temp Pulse Pulse Resp BP BP Pulse Ox 01/08/22 07:45 36.3 C L 58 L 18 148/83 H 99 01/08/22 01:50 57 L 23 96 01/07/22 21:40 36.5 C 62 18 149/80 H 97 O2 Del Method FiO2 01/08/22 07:45 Room Air 01/08/22 01:50 21 01/07/22 21:40 Room Air Laboratory Results Glucose this morning was 162.
[2022-01-08] MEDS: FERROUS GLUCONATE 324 MG TAB PO SCH (10:14)
[2022-01-08] MEDS: CARBOHYDRATES FOR HYPOGLYCEMIA PO PRN ×2 (12:12→12:34)
--- NOTE | 2022-01-08 13:35 | Pharmacy Report ---
Pharmacy Glycemic Short Note 2 - Date of Service January 08, 2022 - Glycemic Short BSG Results (Last 24 hours): 01/07/22 01/07/22 01/08/22 16:48 20:45 07:49 POC Glucose 120 H 127 H 162 H 01/08/22 01/08/22 01/08/22 12:04 12:05 12:31 POC Glucose 57 L* 59 L* 64 L* 01/08/22 12:51 POC Glucose 84 OUTPATIENT ANTIDIABETIC REGIMEN: * Humulin 70/30 - 30 units BID * Humulin R TIDM * metformin 1 gm PO BID * HbA1C = 7.5% (01/07/22) ASSESSMENT: 01/08 * BSGs [phone] mg/dL yesterday with 29 unit of bolus + 40 units of basal * Fasting this AM 162 mg/dL. * Patient with hypoglycemic event at lunch today; anticipate d/t wearing off of steroid and tight carb ratio. Will loosen closer to weight based stress of 1. 01/07 * Mr Freeman is a 51 y/o M with a PMH of T2DM who presents for knee replacement. * Patient received dexamethasone 4 mg IV intraop. His BSGs yesterday, POD 0, were [phone] mg/dL and overnight were 247-223 mg/dL. He received 9 units overnight. * Fasting today is 182 mg/dL. * Will start Lantus weight-based stress of 2 for 20 units BID. * Novolog weight-based stress of 2 for CF with tight CR due to steroid use. * Hold metformin and consider initiation on 01/08/22. PLAN FOR INPATIENT GLYCEMIC CONTROL: * Hold outpatient oral diabetes medications * Basal insulin * Lantus 20 units SQ BID * Bolus insulin * NovoLog per scale ACHS or Q6hrs while NPO * Goal Range: Low 110 mg/dL - High 140 mg/dL * Correction Factor: 20 mg/dL/unit * Nutritional / Prandial insulin per carb ratio of 1 unit per 12 grams CHO consumed
== END 2022-01-08 15:35 ==
LOC: 3E 07:39 → ASU 07:39

== ENCOUNTER 2022-01-23 21:25 | Inpatient (IN) ==
[2022-01-23 22:15] LABS: Basophils # (auto) 0.04 K/uL (0-0.2); Basophils % (auto) 0.3 %; Eosinophils # (auto) 0.06 K/uL (0-0.50); Eosinophils % (auto) 0.4 %; Hematocrit (blood only) 39.7 % (40.1-51.0); Hemoglobin 13.9 g/dl (14.0-18.0); Immature Granulocytes # (auto) 0.06 K/uL (0.00-0.02); Immature Granulocytes % (auto) 0.4 %; Lymphocytes # (auto) 3.32 K/uL (1.2-3.4); Lymphocytes % (auto) 24.4 %; Mean Corpuscular Hemoglobin 26.9 pg (25.0-34.0); Mean Corpuscular Volume 76.9 fL (80.0-100.0); Mean Platelet Volume 9.4 fL (9.4-12.4); Monocytes # (auto) 1.15 K/uL (0.24-0.82); Monocytes % (auto) 8.5 %; Neutrophils # (auto) 8.96 K/uL (1.4-6.5); Platelet Count 540 K/uL (130-400); RDW Coefficient of Variation 13.5 % (11.5-14.5); RDW Standard Deviation 37.3 fL (36.4-46.3); Red Blood Count 5.16 M/uL (4.63-6.08); White Blood Count 13.59 K/ul (4.8-10.8)
[2022-01-23 22:50] LABS: Alanine Aminotransferase 27 U/L (7-52); Albumin Globulin Ratio 1.3 (0.9-2); Albumin Level 4.2 gm/dl (3.4-5.0); Alkaline Phosphatase 66 U/L (34-104); Anion Gap 13 (3-11); BUN Creatinine Ratio 13.9 (10-20); Bilirubin,Total 1.3 mg/dl (0.2-1.0); Blood Urea Nitrogen 35 mg/dl (6-23); Calcium 10.2 mg/dl (8.5-10.1); Carbon Dioxide 25 mmol/L (21-32); Chloride 92 mmol/L (98-107); Creatinine Clr Calc Pharmacy 42.9 ml/min; Est GFR (African American) 32.7 ml/min; Est GFR (Non-African American) 28.2 ml/min; Globulin 3.2 gm/dl (2.5-4.0); Glucose 45 mg/dl (70-99(Fasting)); Sodium 130 mmol/L (136-145); Total Protein 7.4 gm/dl (6.0-8.3)
[2022-01-23] MEDS ORDERED: DEXTROSE 50% 50 ML SYRINGE IV ONE (23:02)
[2022-01-23] MEDS ORDERED: SODIUM CHLORIDE 0.9% 1000ML 1,000 ML IV ONE ×2 (23:03→23:48)
--- NOTE | 2022-01-23 23:48 | XRay Report ---
SINGLE VIEW CHEST CLINICAL HISTORY: Atypical chest pain. Illness. FINDINGS: An AP, portable, upright chest radiograph is obtained. No prior studies are available for c omparison at the time of dictation. The examination is degraded by portable technique and patient rot ation. The cardiomediastinal silhouette is unremarkable. The lungs and pleural spaces are clear. No pneumothorax is seen. The bony thorax is grossly intact. IMPRESSION: No active disease in the chest. ACT 112: Negative or not required by law. Electronically signed by: Hunter Freitas M.D. 01/23/2022 11:46 PM
[2022-01-24] LABS: Potassium 2.8 mmol/L (3.5-5.1)
[2022-01-24 00:43] LABS: Appearance Urine Clear (Clear); Bilirubin Urine Negative (Negative); Blood Urine Negative (Negative); Color Urine Yellow; Glucose Urine UA Negative (Negative); Ketones Urine Negative (Negative); Leukocyte Esterase Urine Negative (Negative); Nitrite Urine Negative (Negative); Protein Urine Negative (Negative); Specific Gravity Urine 1.015 (1.000-1.030); Urobilinogen Urine Negative (Negative)
--- NOTE | 2022-01-24 01:30 | Emergency Department Note ---
History of Present Illness General Chief complaint: Hypotension Stated complaint: DIZZINESS/BACK KNEE PAIN Time Seen by Provider: 01/23/22 21:29 History of Present Illness Maximum Pain Intensity: 6 This 51-year-old presents presents to the ER complaining of severe back pain that radiates to his chest with right leg discomfort and tingling Location: Chest and back Quality: Painful Severity: Moderate Duration: Today Timing: Today Context: Patient nearly passed out and was sent in Modifying factors: better with rest; worse with activity Patient states he has not been sleeping well with his recent knee surgery. He got lightheaded and dizzy in the cafeteria tonight and went to the [facility] and nearly passed out. He was hypotensive and sent in. He complains of severe back and chest pain to me. He states his right leg feels weak. Patient denies abdominal pain, fevers, vomiting, flulike illness. Home Medications Medication Instructions Recorded Confirmed Type atorvastatin 40 mg tablet 40 mg PO DAILY 01/08/19 01/24/22 History gabapentin 600 mg tablet 600 mg PO BID 01/08/19 01/24/22 History insulin human U-100 NPH-regulr 30 unit subcut BID 01/08/19 01/24/22 History 70-30 mix 100 unit/mL subcutaneous susp (Humulin 70/30 U-100 Insulin) insulin regular human 100 unit/mL 1 sliding scale dose subcut UD 01/08/19 01/24/22 History injection solution (Humulin R Regular U-100 Insulin) amlodipine 10 mg tablet 10 mg PO DAILY 01/01/22 01/24/22 History gabapentin 800 mg tablet 800 mg PO BID 01/01/22 01/24/22 History hydrochlorothiazide 25 mg tablet 25 mg PO BID 01/01/22 01/24/22 History lisinopril 40 mg tablet 40 mg PO DAILY 01/01/22 01/24/22 History metformin 1,000 mg tablet 1,000 mg PO BID 01/01/22 01/24/22 History acetaminophen 500 mg tablet 1,000 mg PO QID PRN as directed 01/24/22 01/24/22 History ascorbic acid (vitamin C) 500 mg 500 mg PO BIDM 01/24/22 01/24/22 History chewable tablet (Vitamin C) aspirin 81 mg tablet,delayed 81 mg PO BID 01/24/22 01/24/22 History release diclofenac sodium 1 % topical gel 1 ea topical BID 01/24/22 01/24/22 History docusate sodium 100 mg capsule 100 mg PO BID 01/24/22 01/24/22 History ferrous gluconate 324 mg (38 mg 324 mg PO BIDM 01/24/22 01/24/22 History iron) tablet lansoprazole 30 mg capsule,delayed 30 mg PO BID 01/24/22 01/24/22 History release ondansetron HCl 4 mg tablet 4 mg PO TID PRN as directed 01/24/22 01/24/22 History promethazine 25 mg/mL injection 25 mg IM BID PRN as directed 01/24/22 01/24/22 History solution Allergies Allergy/AdvReac Type Severity Reaction Status Date / Time morphine Allergy Unknown SCI MARY Verified 01/24/22 00:14 TWP LIST Pork/Porcine Containing Allergy Unknown SCI MARY Verified 01/24/22 00:14 Products TWP LIST tomato Allergy Unknown SCI MARY Verified 01/24/22 00:14 TWP LIST RED MEAT Allergy Unknown SCI MARY Uncoded 01/24/22 00:14 TWP LIST RED SAUCE Allergy Unknown SCI MARY Uncoded 01/24/22 00:14 TWP LIST Past Med/Surg History Medical History Antisocial personality disorder Diabetes mellitus, type 2 IDDM GERD (gastroesophageal reflux disease) History of COVID-19 03/11/2020 Hyperlipidemia Hypertension 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 Osteoarthritis of right knee Sleep apnea Surgical History H/O fasciotomy LEFT LEG +SKIN GRAFT Social History Smoking Status: Never smoker Preferred Language: Singaporean Current Living Situation: Other Current Living Situation Comment: [facility] Feels Safe at Home: Yes Assistive Devices: None Review of Systems A total of 10 systems reviewed and were otherwise negative Physical Exam Vital Signs Vital Signs - 24 hr 01/23/22 21:35 01/23/22 22:47 01/23/22 23:11 Temperature 37.1 C Temperature Source Oral Pulse Rate 73 69 73 Pulse Rhythm Regular Pulse Strength Normal Respiratory Rate 18 16 18 Respiratory Effort / Characteristics Non-Labored Spontaneous Respiratory Depth Normal Respiratory Pattern Regular Blood Pressure 114/67 101/55 L 110/68 Blood Pressure Mean 82 70 82 Blood Pressure Position Lying Pulse Oximetry 100 100 96 Oxygen Delivery Method Room Air Sepsis Recent Fever Within 48 Hours No Sepsis New/Unexplained Change in Mental Status N/A Sepsis Action Taken by Nursing No Action Required 01/23/22 23:31 01/24/22 00:00 01/24/22 00:30 Temperature Temperature Source Pulse Rate 69 72 70 Pulse Rhythm Pulse Strength Respiratory Rate 18 20 16 Respiratory Effort / Characteristics Respiratory Depth Respiratory Pattern Blood Pressure 121/71 128/76 128/77 Blood Pressure Mean 87 93 94 Blood Pressure Position Pulse Oximetry 100 100 100 Oxygen Delivery Method Sepsis Recent Fever Within 48 Hours Sepsis New/Unexplained Change in Mental Status Sepsis Action Taken by Nursing 01/24/22 01:00 01/24/22 02:00 Temperature Temperature Source Pulse Rate 72 69 Pulse Rhythm Pulse Strength Respiratory Rate 18 18 Respiratory Effort / Characteristics Respiratory Depth Respiratory Pattern Blood Pressure 126/70 136/76 Blood Pressure Mean 88 96 Blood Pressure Position Pulse Oximetry 99 99 Oxygen Delivery Method Sepsis Recent Fever Within 48 Hours Sepsis New/Unexplained Change in Mental Status Sepsis Action Taken by Nursing VITALS: Vitals are noted on the nurse's note and reviewed by myself. Vital signs stable. GENERAL: Black male in shackles moving all extremities, in no acute distress, nondiaphoretic, well-developed well-nourished. SKIN: The skin was without rashes, erythema, edema, or bruising. There is no tenting of the skin. Capillary reflex less than 2 seconds. HEAD: Normocephalic atraumatic. EARS: External auditory canals clear, EYES: Pupils equal round and reactive to light and accommodation. Conjunctivae without injection, sclerae without icterus. Extraocular movements intact. NOSE: Patent, turbinates without inflammation or discharge. MOUTH: Mucous membranes moist. Pharynx without erythema or exudate. Uvula midline. Airway patent. Tongue does not deviate. NECK: Supple without nuchal rigidity. No lymphadenopathy. No thyromegaly. Cervical spine is nontender. No JVD. HEART: Regular rate and rhythm LUNGS: Clear to auscultation bilaterally without wheezes, rales or rhonchi. No retractions or accessory muscle use. ABDOMEN: Positive bowel sounds x 4. Normal tympanic percussion. Soft, nontender, without masses or organomegaly. Henson sign negative. No guarding or rebound tenderness. No CVA tenderness MUSCULOSKELETAL: No muscle atrophy, erythema, or edema noted. 5 out of 5 strength throughout. Right knee without signs of infection. NEURO: Patient was alert and oriented to person place and time. Normal sensation to light and sharp touch. No focal neurological deficits. Course Administered Medications Discontinued Medications Dextrose (Dextrose 50% 50 Ml Syringe) 25 ml IV NOW ONE Stop: 01/23/22 23:03 Last Admin: 01/23/22 23:07 Dose: 25 ml Documented By: KATHARINE Sodium Chloride (Nss 1000ml) 1,000 mls @ 999 mls/hr IV .Q1H1M ONE Stop: 01/24/22 00:03 Last Infusion: 01/24/22 00:37 Dose: 0 mls/hr Documented By: Admin: 01/23/22 23:10 Dose: 999 mls/hr Documented By: KATHARINE Sodium Chloride (Nss 1000ml) 1,000 mls @ 999 mls/hr IV .Q1H1M ONE Stop: 01/24/22 00:48 Last Infusion: 01/24/22 01:39 Dose: 0 mls/hr Documented By: Admin: 01/24/22 00:38 Dose: 999 mls/hr Documented By: KATHARINE Potassium Chloride (Potassium Chloride 10 Meq Tabcr) 40 meq PO NOW STA Stop: 01/24/22 02:35 Last Admin: 01/24/22 02:39 Dose: 40 meq Documented By: KATHARINE Medical Decision Making Medical Records Attestation: I reviewed the patient's medical records. Home Medications Current Medication List: was personally reviewed by me Laboratory Data Attestation: I reviewed the patient's lab results. Result diagrams: 01/23/22 21:52 01/23/22 23:00 Lab Results 01/23/22 01/23/22 01/23/22 Range/Units 21:52 21:52 23:00 WBC 13.59 H (4.8-10.8) K/ul RBC 5.16 (4.63-6.08) M/uL Hgb 13.9 L (14.0-18.0) g/dl Hct 39.7 L (40.1-51.0) % MCV 76.9 L (80.0-100.0) fL MCH 26.9 (25.0-34.0) pg MCHC 35.0 (32.0-36.0) g/dL RDW Std Deviation 37.3 (36.4-46.3) fL RDW Coeff of Alda 13.5 (11.5-14.5) % Plt Count 540 H (130-400) K/uL MPV 9.4 (9.4-12.4) fL Immature Gran % (Auto) 0.4 % Neut % (Auto) 66.0 % Lymph % (Auto) 24.4 % Walsh % (Auto) 8.5 % Eos % (Auto) 0.4 % Baso % (Auto) 0.3 % Neut # (Auto) 8.96 H (1.4-6.5) K/uL Lymph # (Auto) 3.32 (1.2-3.4) K/uL Walsh # (Auto) 1.15 H (0.24-0.82) K/uL Eos # (Auto) 0.06 (0-0.50) K/uL Baso # (Auto) 0.04 (0-0.2) K/uL Immature Gran # (Auto) 0.06 H (0.00-0.02) K/uL Sodium 130 L (136-145) mmol/L Potassium TNP Chloride 92 L (98-107) mmol/L Carbon Dioxide 25 (21-32) mmol/L Anion Gap 13 H (3-11) BUN 35 H (6-23) mg/dl Creatinine 2.52 H D (0.6-1.4) mg/dl Est Cr Clr Drug Dosing 42.9 ml/min Est GFR ( Amer) 32.7 ml/min Est GFR (Non-Af Amer) 28.2 ml/min BUN/Creatinine Ratio 13.9 (10-20) Glucose 45 L* (70-99(Fasting)) mg/dl POC Glucose (70-99) mg/dl Calcium 10.2 H (8.5-10.1) mg/dl Total Bilirubin 1.3 H (0.2-1.0) mg/dl AST TNP ALT 27 (7-52) U/L Alkaline Phosphatase 66 (34-104) U/L Total Creatine Kinase (30-223) U/L Troponin I High Sens 15.6 (0-20) pg/ml Total Protein 7.4 (6.0-8.3) gm/dl Albumin 4.2 (3.4-5.0) gm/dl Globulin 3.2 (2.5-4.0) gm/dl Albumin/Globulin Ratio 1.3 (0.9-2) Urine Color Urine Appearance (Clear) Urine pH (4.5-7.5) Ur Specific [place] (1.000-1.030) Urine Protein (Negative) Urine Glucose (UA) (Negative) Urine Ketones (Negative) Urine Blood (Negative) Urine Nitrite (Negative) Urine Bilirubin (Negative) Urine Urobilinogen (Negative) Ur Leukocyte Esterase (Negative) SARS-CoV-2, RNA, NAAT (NEGATIVE) 01/23/22 01/23/22 01/23/22 Range/Units 23:00 23:00 23:30 WBC (4.8-10.8) K/ul RBC (4.63-6.08) M/uL Hgb (14.0-18.0) g/dl Hct (40.1-51.0) % MCV (80.0-100.0) fL MCH (25.0-34.0) pg MCHC (32.0-36.0) g/dL RDW Std Deviation (36.4-46.3) fL RDW Coeff of Alda (11.5-14.5) % Plt Count (130-400) K/uL MPV (9.4-12.4) fL Immature Gran % (Auto) % Neut % (Auto) % Lymph % (Auto) % Walsh % (Auto) % Eos % (Auto) % Baso % (Auto) % Neut # (Auto) (1.4-6.5) K/uL Lymph # (Auto) (1.2-3.4) K/uL Walsh # (Auto) (0.24-0.82) K/uL Eos # (Auto) (0-0.50) K/uL Baso # (Auto) (0-0.2) K/uL Immature Gran # (Auto) (0.00-0.02) K/uL Sodium (136-145) mmol/L Potassium 2.8 L D Chloride (98-107) mmol/L Carbon Dioxide (21-32) mmol/L Anion Gap (3-11) BUN (6-23) mg/dl Creatinine (0.6-1.4) mg/dl Est Cr Clr Drug Dosing ml/min Est GFR ( Amer) ml/min Est GFR (Non-Af Amer) ml/min BUN/Creatinine Ratio (10-20) Glucose (70-99(Fasting)) mg/dl POC Glucose 93 (70-99) mg/dl Calcium (8.5-10.1) mg/dl Total Bilirubin (0.2-1.0) mg/dl AST 28 ALT (7-52) U/L Alkaline Phosphatase (34-104) U/L Total Creatine Kinase 448 H (30-223) U/L Troponin I High Sens (0-20) pg/ml Total Protein (6.0-8.3) gm/dl Albumin (3.4-5.0) gm/dl Globulin (2.5-4.0) gm/dl Albumin/Globulin Ratio (0.9-2) Urine Color Urine Appearance (Clear) Urine pH (4.5-7.5) Ur Specific [place] (1.000-1.030) Urine Protein (Negative) Urine Glucose (UA) (Negative) Urine Ketones (Negative) Urine Blood (Negative) Urine Nitrite (Negative) Urine Bilirubin (Negative) Urine Urobilinogen (Negative) Ur Leukocyte Esterase (Negative) SARS-CoV-2, RNA, NAAT (NEGATIVE) 01/24/22 01/24/22 01/24/22 Range/Units 00:15 01:20 01:48 WBC (4.8-10.8) K/ul RBC (4.63-6.08) M/uL Hgb (14.0-18.0) g/dl Hct (40.1-51.0) % MCV (80.0-100.0) fL MCH (25.0-34.0) pg MCHC (32.0-36.0) g/dL RDW Std Deviation (36.4-46.3) fL RDW Coeff of Alda (11.5-14.5) % Plt Count (130-400) K/uL MPV (9.4-12.4) fL Immature Gran % (Auto) % Neut % (Auto) % Lymph % (Auto) % Walsh % (Auto) % Eos % (Auto) % Baso % (Auto) % Neut # (Auto) (1.4-6.5) K/uL Lymph # (Auto) (1.2-3.4) K/uL Walsh # (Auto) (0.24-0.82) K/uL Eos # (Auto) (0-0.50) K/uL Baso # (Auto) (0-0.2) K/uL Immature Gran # (Auto) (0.00-0.02) K/uL Sodium (136-145) mmol/L Potassium Chloride (98-107) mmol/L Carbon Dioxide (21-32) mmol/L Anion Gap (3-11) BUN (6-23) mg/dl Creatinine (0.6-1.4) mg/dl Est Cr Clr Drug Dosing ml/min Est GFR ( Amer) ml/min Est GFR (Non-Af Amer) ml/min BUN/Creatinine Ratio (10-20) Glucose (70-99(Fasting)) mg/dl POC Glucose (70-99) mg/dl Calcium (8.5-10.1) mg/dl Total Bilirubin (0.2-1.0) mg/dl AST ALT (7-52) U/L Alkaline Phosphatase (34-104) U/L Total Creatine Kinase (30-223) U/L Troponin I High Sens 12.5 (0-20) pg/ml Total Protein (6.0-8.3) gm/dl Albumin (3.4-5.0) gm/dl Globulin (2.5-4.0) gm/dl Albumin/Globulin Ratio (0.9-2) Urine Color Yellow Urine Appearance Clear (Clear) Urine pH 6.0 (4.5-7.5) Ur Specific [place] 1.015 (1.000-1.030) Urine Protein Negative (Negative) Urine Glucose (UA) Negative (Negative) Urine Ketones Negative (Negative) Urine Blood Negative (Negative) Urine Nitrite Negative (Negative) Urine Bilirubin Negative (Negative) Urine Urobilinogen Negative (Negative) Ur Leukocyte Esterase Negative (Negative) SARS-CoV-2, RNA, NAAT NEGATIVE (NEGATIVE) Imaging Data Attestation: I personally reviewed and interpreted this imaging study as follows: Radiologist's Impression: Chest X-Ray 01/23/22 22:01 SINGLE VIEW CHEST CLINICAL HISTORY: Atypical chest pain. Illness. FINDINGS: An AP, portable, upright chest radiograph is obtained. No prior studies are available for comparison at the time of dictation. The examination is degraded by portable technique and patient rotation. The cardiomediastinal silhouette is unremarkable. The lungs and pleural spaces are clear. No pneumothorax is seen. The bony thorax is grossly intact. IMPRESSION: No active disease in the chest. ACT 112: Negative or not required by law. Electronically signed by: Hunter Freitas M.D. 01/23/2022 11:46 PM MDM Narrative Prior records/ancillary studies reviewed and summarized above. Nursing notes reviewed. Additional history obtained from []. The patient's history was concerning for []. Differential diagnosis: Etiologies such as metabolic, infection, hypo/hyperglycemia, electrolyte abnormalities, cardiac sources, intracerebral event, toxicologic, neurologic, as well as others were entertained. Physical examination: As above. ER treatment provided: IV Lock An order was placed for continuous cardiac monitoring. The monitor shows a rate of 60-100 with a sinus rhythm. Dextrose, IV fluids, potassium On reassessment the patient felt better. Diagnostics interpretation by me: ECG: Ordered for dizziness EKG: Normal sinus, normal intervals, no acute ST-T wave changes. Impression normal sinus rhythm interpreted by myself I think arrhythmia is unlikely. EKG shows normal sinus rhythm with no interval abnormalities such as QT prolongation or WPW. There are no findings to suggest Brugada syndrome. Cardiac monitoring in the emergency department reveals no t achycardic or bradycardic dysrhythmia. Hypertrophic cardiomyopathy was considered but there are no clear historical elements pointing toward this. EKG is not suggestive. The QRS voltage is not extremely large and there are no suggestive Q waves. The labs revealed acute kidney injury, hyperglycemia and patient was given dextrose and blood sugar improved negative troponins x2 Imaging studies: CT CHEST Without Contrast: No acute findings in the thorax. Radiologist: Claude Montgomery MD CT ABDOMEN & PELVIS Without Contrast: Comparison is made to a prior examination dated 07/25/20. No acute findings in the abdomen or pelvis. Radiologist: Claude Montgomrey MD HEART SCORE: Hx: high/mod/low suspicion: 0 ECG: ST depression/nonspecific changes/normal: 0 Age: Greater than 65/45-64/less than 45: 1 Risk factors: (Hypertension, hyperlipidemia, diabetes, coronary disease, tobacco use, cocaine use): 1 Troponin: Greater than 2 times normal limits/1-2 times normal limits/normal: 0 Total: 2 Consultation: A consultation was placed with the hospitalist. The case was discussed and diagnostics were reviewed. The patient was evaluated in the ER for further treatment. Exam and history seem consistent with acute kidney injury with near syncopal episode with chest and back pain. Imaging was negative. Patient was hydrated a s above. He was given dextrose. Blood sugar was improved. Medicine is consulted. He will be evaluated for admission. By the evaluation outlined above emergent etiologies such as infection, electrolyte abnormalities, cardiac sources, intracerebral event, toxologic, neurologic, as well as others were deemed relatively unlikely. The pt informed about the findings as listed above. All questions were answered and pleased with the treatment. The chart was completed utilizing [employer] Speech voice recognition software. Grammatical errors, random word insertions, pronoun errors, and incomplete sentences are an occassional consequence of this system due to software limitations, ambient noise, and hardware issues. Any formal questions or concerns about the content, text, or information contained within the body of this dictation should be directly addressed to the physician nursing home assistant for clarification. Impression & Plan ALTHEA (acute kidney injury), Chest pain, Back pain, Hypoglycemia Discharge Plan Visit Data Chief Complaint: Hypotension Stated Complaint: DIZZINESS/BACK KNEE PAIN ED Provider: Prabhakar Cardenas ED Midlevel Provider: Pauline Montgomery Discharge Problem: ALTHEA (acute kidney injury), Chest pain, Back pain, Hypoglycemia Patient Disposition: Admitted As Inpatient Condition: Good Forms Stand Alone Forms: My [facility] Sendoid Prescriptions Prescriptions: No Action atorvastatin 40 mg Tablet 40 mg PO DAILY gabapentin 600 mg Tablet 600 mg PO BID Rx Instructions: [facility] Humulin 70/30 U-100 Insulin 100 unit/mL (70-30) Suspension 30 unit SUBCUT BID Humulin R Regular U-100 Insuln 100 unit/mL Solution 1 sliding scale dose SUBCUT UD Label Comments: PER SLIDING SCALE aspirin [Aspirin Low-Strength] 81 mg Tablet,Delayed Release (Dr/Ec) 81 mg PO BID ascorbic acid (vitamin C) [Vitamin C] 500 mg Tablet,Chewable 500 mg PO BIDM docusate sodium 100 mg Capsule 100 mg PO BID ferrous gluconate 324 mg (38 mg iron) Tablet 324 mg PO BIDM ondansetron HCl 4 mg Tablet 4 mg PO TID PRN (Reason: as directed) acetaminophen 500 mg Tablet 1,000 mg PO QID PRN (Reason: as directed) lansoprazole 30 mg Capsule,Delayed Release(Dr/Ec) 30 mg PO BID promethazine 25 mg/mL Solution 25 mg IM BID PRN (Reason: as directed) diclofenac sodium 1 % Gel 1 ea TOPICAL BID gabapentin 800 mg Tablet 800 mg PO BID amlodipine 10 mg Tablet 10 mg PO DAILY metformin 1,000 mg Tablet 1,000 mg PO BID hydrochlorothiazide 25 mg Tablet 25 mg PO BID lisinopril 40 mg Tablet 40 mg PO DAILY Referrals Referrals: Mary CAMPO [Primary Care Provider] -
[2022-01-24] MEDS ORDERED: POTASSIUM CHLORIDE 10 MEQ TABCR PO STA (02:34)
[2022-01-24] MEDS ORDERED: ONDANSETRON INJ 2 MG/ML 2 ML VIAL IV PRN (04:19)
[2022-01-24] MEDS ORDERED: DEXTROSE 50% 50 ML SYRINGE IV PRN (04:19)
[2022-01-24] MEDS ORDERED: DOCUSATE SODIUM 100 MG CAP PO PRN (04:19)
[2022-01-24] MEDS ORDERED: GLUCOSE 40% GEL 15 GM TUBE PO PRN (04:19)
[2022-01-24] MEDS ORDERED: GLUCOSE 10 TAB/TUBE PO PRN (04:19)
[2022-01-24] MEDS ORDERED: GLUCAGON FOR INJ 1 MG VIAL SQ PRN (04:19)
[2022-01-24] MEDS ORDERED: CARBOHYDRATES FOR HYPOGLYCEMIA PO PRN (04:19)
[2022-01-24] MEDS: ACETAMINOPHEN 500 MG TAB PO PRN (04:45)
[2022-01-24] MEDS: LACTATED RINGER'S 1,000 ML IV SCH ×2 (04:45→13:08)
--- NOTE | 2022-01-24 05:00 | History & Physical Report ---
Date of Service January 24, 2022 Assessment & Plan (1) Nausea and vomiting: Plan: Etiology uncertain. Symptoms improving. Likely causing dehydration, ALTHEA with hypokalemia. Patient reports significant GERD symptoms causing some of the nausea. -Zofran PRN -Protonix 40mg IV daily -GI cocktail PRN (2) ALTHEA (acute kidney injury): Plan: Elevated BUN and Cr. Suspect prerenal etiology secondary to volume loss from vomiting and decreased oral intake. BUN=35 and Cr=2.52 -Check urine Na and Cr -Check CK -Avoid nephrotoxic agents -Renal dosing where needed -IVF with LR at 125mL/hr x 2 liters -Repeat chemistry in AM (3) Hypoglycemia: Plan: Improved. Most likely secondary to ALTHEA, insulin use and decreased oral intake -Monitor glucose q 2 hours until stable (4) Hypertension: Plan: Blood pressure appropriate -Continue Amlodipine 10mg po daily -Hold HCTZ and Lisinopril given ALTHEA -Monitor BP (5) Hyperlipidemia: Plan: Chronic. On medications -Continue Atorvastatin 40mg po daily (6) GERD (gastroesophageal reflux disease): Plan: Chronic. Patient reports worsening symtpoms -Protonix 40mg IV daily -GI cocktail as needed -Zofran as needed (7) Diabetes mellitus, type 2: Plan: Patient with hypoglycemia on arrival, now improved following oral intake and IV dextrose. He is on Humulin 70/30 30u BID and Humulin R sliding scale at home. Hypoglycemia possibly secondary to ALTHEA, decreased oral intake. -Fingersticks q 2 hours -Lantus 10u BID -ISS -Hold Metformin -Goal blood sugar 110 - 140 -Continue Neurontin - decrease to 600mg po BID (8) Status post right knee replacement: Plan: Appears to be healing well. Pain is controlled -Continue PT F/E/N - LR, 40mEq of K given in ER, repeat chemistry in AM Ppx Code - Full Dispo -Admit to medical Admission and Anticipated Discharge Date Admission Date: January 24, 2022 History of Present Illness Chief Complaint: Vomiting, dehydration Primary Care Provider: JAHAIRA Hernandez Roland Freeman is a 51yo male inmate at [facility] presenting with nausea, vomiting and near syncope. Patient has been having several days of abdominal pain, nausea and vomiting. He was seen in the ER on 01/22 and found to have elevation of Cr. He had a negative CT of the abdomen. He was administered IV Zofran, Protonix and 2L of IVF and returned to [facility] with diagnosis of gastritis. He reports his nausea and vomiting has persisted. Today he had an episode of lightheadedness and dizziness while standing in line to get his medications. Also nearly passed out in the cafeteria. He reports ongoing nausea and significant reflux symtpoms. In the ER he was found to be hypoglycemic with BSG of 45. He was administered IV Dextrose with improvement Allergies Allergy/AdvReac Type Severity Reaction Status Date / Time Beef Containing Products Allergy Unknown [facility] Verified 01/24/22 04:35 TWP LIST morphine Allergy Unknown [facility] Verified 01/24/22 00:14 TWP LIST Pork/Porcine Containing Allergy Unknown [facility] Verified 01/24/22 00:14 Products TWP LIST tomato Allergy Unknown [facility] Verified 01/24/22 00:14 TWP LIST Home Medications Medication Instructions Recorded Confirmed Type atorvastatin 40 mg tablet 40 mg PO DAILY 01/08/19 01/24/22 History gabapentin 600 mg tablet 600 mg PO BID 01/08/19 01/24/22 History insulin human U-100 NPH-regulr 30 unit subcut BID 01/08/19 01/24/22 History 70-30 mix 100 unit/mL subcutaneous susp (Humulin 70/30 U-100 Insulin) insulin regular human 100 unit/mL 1 sliding scale dose subcut UD 01/08/19 01/24/22 History injection solution (Humulin R Regular U-100 Insulin) amlodipine 10 mg tablet 10 mg PO DAILY 01/01/22 01/24/22 History gabapentin 800 mg tablet 800 mg PO BID 01/01/22 01/24/22 History hydrochlorothiazide 25 mg tablet 25 mg PO BID 01/01/22 01/24/22 History lisinopril 40 mg tablet 40 mg PO DAILY 01/01/22 01/24/22 History metformin 1,000 mg tablet 1,000 mg PO BID 01/01/22 01/24/22 History acetaminophen 500 mg tablet 1,000 mg PO QID PRN as directed 01/24/22 01/24/22 History ascorbic acid (vitamin C) 500 mg 500 mg PO BIDM 01/24/22 01/24/22 History chewable tablet (Vitamin C) aspirin 81 mg tablet,delayed 81 mg PO BID 01/24/22 01/24/22 History release diclofenac sodium 1 % topical gel 1 ea topical BID 01/24/22 01/24/22 History docusate sodium 100 mg capsule 100 mg PO BID 01/24/22 01/24/22 History ferrous gluconate 324 mg (38 mg 324 mg PO BIDM 01/24/22 01/24/22 History iron) tablet lansoprazole 30 mg capsule,delayed 30 mg PO BID 01/24/22 01/24/22 History release ondansetron HCl 4 mg tablet 4 mg PO TID PRN as directed 01/24/22 01/24/22 History promethazine 25 mg/mL injection 25 mg IM BID PRN as directed 01/24/22 01/24/22 History solution Past Med/Surg History Medical History Antisocial personality disorder Diabetes mellitus, type 2 IDDM GERD (gastroesophageal reflux disease) History of COVID-19 03/11/2020 Hyperlipidemia Hypertension 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 Osteoarthritis of right knee Sleep apnea Surgical History H/O fasciotomy LEFT LEG +SKIN GRAFT Social History Smoking Status: Never smoker Preferred Language: Comoran Current Living Situation: Other Current Living Situation Comment: JAHAIRA HERNANDEZ Feels Safe at Home: Yes Assistive Devices: None Review of Systems Review of Systems: All systems reviewed & are unremarkable except as noted in HPI & below Physical Exam Physical Exam: General: patient resting comfortably, NAD, non-toxic in appearance, AA&O x 4 Skin: warm, dry, intact, no rashes or lesions HEENT: NC/AT, PERRL, EOMI, anicteric sclera, conjunctiva without injection, external ear normal to inspection and nontender, nares patent, moist mucus membranes, dentition intact, no oropharyngeal lesions, neck supple, trachea midline, no LAD, no thyromegaly, no JVD Heart: +S1/S2, regular, no m/r/g Lungs: equal air entry bilaterally, no rales/rhonchi/wheezes Abd: +BS, soft, ND, mild epigastric tenderness to palpation, no rebound/guarding/peritonitis, no masses/organomegaly/ascites Ext: warm, 2+ pulses in UE/LE bilaterally, no clubbing/cyanosis or edema, right knee surgical site well approximated with no bleeding, erythema or dehiscence Neuro: nonfocal, patient AA&O x 4, speech intact, no facial droop, moving all extremities on command with equal strength 5/5 Results & Data Results & Data ([facility]) Vital Signs (Past 12 Hours) Vital Signs Temp Pulse Resp BP Pulse Ox O2 Del Method 01/24/22 03:53 75 13 144/70 H 94 Room Air 01/24/22 02:00 69 18 136/76 99 01/24/22 01:00 72 18 126/70 99 01/24/22 00:30 70 16 128/77 100 01/24/22 00:00 72 20 128/76 100 01/23/22 23:31 69 18 121/71 100 01/23/22 23:11 73 18 110/68 96 01/23/22 22:47 69 16 101/55 L 100 01/23/22 21:35 37.1 C 73 18 114/67 100 Room Air Laboratory Results Laboratory Results WBC 13.59 K/ul (4.8-10.8) H 01/23/22 21:52 RBC 5.16 M/uL (4.63-6.08) 01/23/22 21:52 Hgb 13.9 g/dl (14.0-18.0) L 01/23/22 21:52 Hct 39.7 % (40.1-51.0) L 01/23/22 21:52 MCV 76.9 fL (80.0-100.0) L 01/23/22 21:52 MCH 26.9 pg (25.0-34.0) 01/23/22 21:52 MCHC 35.0 g/dL (32.0-36.0) 01/23/22 21:52 RDW Std Deviation 37.3 fL (36.4-46.3) 01/23/22 21:52 RDW Coeff of Alda 13.5 % (11.5-14.5) 01/23/22 21:52 Plt Count 540 K/uL (130-400) H 01/23/22 21:52 MPV 9.4 fL (9.4-12.4) 01/23/22 21:52 Immature Gran % (Auto) 0.4 % 01/23/22 21:52 Neut % (Auto) 66.0 % 01/23/22 21:52 Lymph % (Auto) 24.4 % 01/23/22 21:52 Boundary % (Auto) 8.5 % 01/23/22 21:52 Eos % (Auto) 0.4 % 01/23/22 21:52 Baso % (Auto) 0.3 % 01/23/22 21:52 Neut # (Auto) 8.96 K/uL (1.4-6.5) H 01/23/22 21:52 Lymph # (Auto) 3.32 K/uL (1.2-3.4) 01/23/22 21:52 Boundary # (Auto) 1.15 K/uL (0.24-0.82) H 01/23/22 21:52 Eos # (Auto) 0.06 K/uL (0-0.50) 01/23/22 21:52 Baso # (Auto) 0.04 K/uL (0-0.2) 01/23/22 21:52 Immature Gran # (Auto) 0.06 K/uL (0.00-0.02) H 01/23/22 21:52 Sodium 130 mmol/L (136-145) L 01/23/22 21:52 Potassium 2.8 mmol/L (3.5-5.1) L D 01/23/22 23:00 Chloride 92 mmol/L (98-107) L 01/23/22 21:52 Carbon Dioxide 25 mmol/L (21-32) 01/23/22 21:52 Anion Gap 13 (3-11) H 01/23/22 21:52 BUN 35 mg/dl (6-23) H 01/23/22 21:52 Creatinine 2.52 mg/dl (0.6-1.4) H D 01/23/22 21:52 Est Cr Clr Drug Dosing 42.9 ml/min 01/23/22 21:52 Est GFR ( Amer) 32.7 ml/min 01/23/22 21:52 Est GFR (Non-Af Amer) 28.2 ml/min 01/23/22 21:52 BUN/Creatinine Ratio 13.9 (10-20) 01/23/22 21:52 Glucose 45 mg/dl (70-99(Fasting)) L* 01/23/22 21:52 POC Glucose 174 mg/dl (70-99) H 01/24/22 04:27 Calcium 10.2 mg/dl (8.5-10.1) H 01/23/22 21:52 Total Bilirubin 1.3 mg/dl (0.2-1.0) H 01/23/22 21:52 AST 28 U/L (13-39) 01/23/22 23:00 ALT 27 U/L (7-52) 01/23/22 21:52 Alkaline Phosphatase 66 U/L (34-104) 01/23/22 21:52 Total Creatine Kinase 448 U/L (30-223) H 01/23/22 23:00 Troponin I High Sens 12.5 pg/ml (0-20) 01/24/22 01:48 Total Protein 7.4 gm/dl (6.0-8.3) 01/23/22 21:52 Albumin 4.2 gm/dl (3.4-5.0) 01/23/22 21:52 Globulin 3.2 gm/dl (2.5-4.0) 01/23/22 21:52 Albumin/Globulin Ratio 1.3 (0.9-2) 01/23/22 21:52 Urine Color Yellow 01/24/22 00:15 Urine Appearance Clear (Clear) 01/24/22 00:15 Urine pH 6.0 (4.5-7.5) 01/24/22 00:15 Ur Specific [place] 1.015 (1.000-1.030) 01/24/22 00:15 Urine Protein Negative (Negative) 01/24/22 00:15 Urine Glucose (UA) Negative (Negative) 01/24/22 00:15 Urine Ketones Negative (Negative) 01/24/22 00:15 Urine Blood Negative (Negative) 01/24/22 00:15 Urine Nitrite Negative (Negative) 01/24/22 00:15 Urine Bilirubin Negative (Negative) 01/24/22 00:15 Urine Urobilinogen Negative (Negative) 01/24/22 00:15 Ur Leukocyte Esterase Negative (Negative) 01/24/22 00:15 SARS-CoV-2, RNA, NAAT NEGATIVE (NEGATIVE) 01/24/22 01:20 Impressions Chest X-Ray 01/23/22 22:01 SINGLE VIEW CHEST CLINICAL HISTORY: Atypical chest pain. Illness. FINDINGS: An AP, portable, upright chest radiograph is obtained. No prior studies are available for comparison at the time of dictation. The examination is degraded by portable technique and patient rotation. The cardiomediastinal silhouette is unremarkable. The lungs and pleural spaces are clear. No pneumothorax is seen. The bony thorax is grossly intact. IMPRESSION: No active disease in the chest. ACT 112: Negative or not required by law. Electronically signed by: Hunter Freitas M.D. 01/23/2022 11:46 PM PG Care Time/CCT Total # of Minutes Spent Total Time Spent with Patient: Total time spent is greater than 50% in coordination of care (as documented) at patient's floor/unit and/or counseling patient: Coding Level of Care Code 56516 Initial Inpt Care Lvl 3 Diagnoses Nausea and vomiting R11.2 ALTHEA (acute kidney injury) N17.9 Hypoglycemia E16.2 Hypertension I10 Hyperlipidemia E78.5 GERD (gastroesophageal reflux disease) K21.9 Diabetes mellitus, type 2 E11.9 Status post right knee replacement Z96.651
[2022-01-24 06:43] LABS: Creatinine Urine Random 52.3 mg/dl
[2022-01-24 07:14] LABS: Magnesium 2.1 mg/dl (1.7-2.4); Phosphorus 4.5 mg/dl (2.5-4.9)
--- NOTE | 2022-01-24 07:37 | CT Scan Report ---
CT chest diagnostic wo con, CT abd pelvis wo con CT DOSE: 1354.01 mGy.cm HISTORY: severe back to chest pain w/ R leg feeling cold TECHNIQUE: Multiaxial CT images of the chest, abdomen, and pelvis were performed without contrast. A dose lowering technique was utilized adhering to the principles of ALARA. COMPARISON: Abdomen and pelvis CT 01/22/2022. FINDINGS: Chest CT: Mild anterior wedging at T12 which is likely chronic. No acute fractures within the chest. The central airways are patent. No focal lung consolidations. No evidence for pulmonary edema. Multip le tiny centrilobular nodules seen within the right upper lobe. This may be due to a chronic bronchio litis. Normal thyroid gland. No mediastinal or hilar lymphadenopathy. The heart is normal in size. No pleural or pericardial effusions. Normal esophagus. Normal caliber thoracic aorta. Mild to moderate calcified plaque within the coronary arteries. Abdomen/pelvis CT: No pneumoperitoneum. No pneumatosis. No fractures identified within the visualized osseous structures. The unenhanced liver, gallbladder, spleen, adrenal glands are unremarkable. The pancreas remains atrophic. Tiny fat-containing umbilical hernia. Normal bladder. The prostate gland r emains mildly enlarged. No bowel wall thickening or obstruction. Normal appendix. Normal caliber abdo ubrano aorta. No retroperitoneal or pelvic lymphadenopathy. IMPRESSION: 1. No acute abnormality within the chest, abdomen, or pelvis. 2. A few tiny centrilobular nodules within the right upper lobe. This may represent a mild chronic br onchiolitis. ACT 112: Negative or not required by law. Electronically signed by: Alirio Cason M.D. 01/24/2022 7:36 AM
[2022-01-24] MEDS ORDERED: ATORVASTATIN 40 MG TAB PO SCH (09:00)
[2022-01-24] MEDS: INSULIN ASPART PER UNIT SC SCH ×4 (09:08→21:45)
[2022-01-24] MEDS: LANTUS PER UNIT CHARGE SQ SCH ×2 (09:08→21:47)
[2022-01-24] MEDS: amLODIPine BESYLATE 5 MG TAB PO SCH (09:09)
[2022-01-24] MEDS: GABAPENTIN 600 MG TAB PO SCH ×2 (09:09→20:19)
[2022-01-24] MEDS: DICLOFENAC SOD 1% GEL 100 GM TUBE EXT SCH ×2 (09:09→20:20)
[2022-01-24] MEDS: ASPIRIN 81 MG ECTAB PO SCH ×2 (09:09→20:19)
[2022-01-24 09:14] LABS: Basophils # (auto) 0.04 K/uL (0-0.2); Basophils % (auto) 0.4 %; Eosinophils # (auto) 0.16 K/uL (0-0.50); Eosinophils % (auto) 1.7 %; Hematocrit (blood only) 37.5 % (40.1-51.0); Hemoglobin 12.9 g/dl (14.0-18.0); Immature Granulocytes # (auto) 0.03 K/uL (0.00-0.02); Immature Granulocytes % (auto) 0.3 %; Lymphocytes # (auto) 2.47 K/uL (1.2-3.4); Lymphocytes % (auto) 26.3 %; Mean Corpuscular Hemoglobin 26.7 pg (25.0-34.0); Mean Corpuscular Hgb Conc 34.4 g/dL (32.0-36.0); Mean Corpuscular Volume 77.5 fL (80.0-100.0); Mean Platelet Volume 8.7 fL (9.4-12.4); Monocytes # (auto) 0.75 K/uL (0.24-0.82); Neutrophils # (auto) 5.93 K/uL (1.4-6.5); Neutrophils % (auto) 63.3 %; Platelet Count 520 K/uL (130-400); RDW Coefficient of Variation 13.9 % (11.5-14.5); RDW Standard Deviation 38.5 fL (36.4-46.3); Red Blood Count 4.84 M/uL (4.63-6.08); White Blood Count 9.38 K/ul (4.8-10.8)
[2022-01-24 09:40] LABS: Iron 27 mcg/dl (35-175); Total Iron Binding Cap Calc 228 mcg/dl (250-450); Transferrin (FE) Percent Satur 12 % (20-50); Unsaturated Iron Binding Cap 201 mcg/dl (155-355)
[2022-01-24 09:53] LABS: Albumin Globulin Ratio 1.3 (0.9-2); Albumin Level 3.7 gm/dl (3.4-5.0); BUN Creatinine Ratio 17.2 (10-20); Bilirubin,Total 0.8 mg/dl (0.2-1.0); Calcium 8.9 mg/dl (8.5-10.1); Est GFR (African American) 55.3 ml/min; Est GFR (Non-African American) 47.7 ml/min; Globulin 2.9 gm/dl (2.5-4.0); Magnesium 2.1 mg/dl (1.7-2.4); Potassium 3.6 mmol/L (3.5-5.1); Total Protein 6.6 gm/dl (6.0-8.3)
[2022-01-24 09:57] LABS: Ferritin 271.9 ng/ml (8-388)
--- NOTE | 2022-01-24 10:30 | Hospitalist Progress Note ---
Date of Service January 24, 2022 Assessment & Plan (1) Nausea and vomiting: Plan: Patient with recent Right Total knee replacement with Dr Cifuentes on 01/06 and discharged back to nursing home instead of rehab as reportedly doing too well for rehab. Had not been working with knee/therapy much and using wheelchair at times to get down to get medications from [facility]. CTAP/CT chest without acute process, possible chronic bronchiolitis? Of note, was in the ER 01/22 w/ reported coffee ground emesis, ALTHEA /hydrated and given IVF with discharge back to nursing home. BUN/Cr 39/1.56 Patient w/ poor PO intake/nausea/vomiting SMUTTER reported, near syncopal episode He states that he has been taking 2 tylenol daily along with 600mg of ibuprofen at the nursing home four times a day for pain control and that he was previously on Protonix/Carafate in past and has had EGDs performed but no reported ulcers/bleeding Also remains on ASA 81mg BID for DVT prophylaxis w/ recent knee surgery, not likely helping Was to switch to prilosec BID at nursing home but they haven't gotten this in yet Hgb currently stable but did consult GI given possible GIB given coffee ground emesis --> Agreed to protonix IV BID, added carafate QID. Would continue both at d/c. AVOID NSAIDs check iron studies (on PO BID currently) ALTHEA/hypokalemia likely from medications (on HCTZ/lisinopril, NSAIDs as above, metformin BID), poor PO intake, and n/v SMUTTER. -- BUN/Cr 35/2.52 on admit, K 2.8 -- IVF LR @ 125cc/hr, PO Kcl supplementation -- Cr improved to 1.63 on repeat and remains on IVF. K 3.6 on repeat. Mag wnl Continue holding HCTZ/lisinopril, metformin, reduced gabapentin to 600mg BID for now (?should really be on 1400mg BID) Antiemetics prn/pain control as needed Labs in AM (2) ALTHEA (acute kidney injury): Plan: Elevated BUN and Cr on admit 35/2.52, prerenal/NSAID induced/dehydration from n/v Suspect prerenal etiology secondary to volume loss from vomiting and decreased oral intake. BUN=35 and Cr=2.52 Urine na/cr acceptable CK 448--> 320. Will HOLD statin. Check TSH w/ AM labs Avoid nephrotoxins, renal dose meds as able (gabapentin reduced) Hold HCTZ/lisinopril as above. ISS while inpatient for DM and holding metformin BID IVF hydration as above BMP in AM (3) Hypoglycemia: Plan: 45 on admit -- likely 2nd to n/v/althea/insulin use and reduced PO intake BSG 113 on repeat Monitor BSG AC/HS Glargine 10u BID ordered on admit - PO intake reportedly improved Monitor BSGs/adjustments as needed (4) Hypertension: Plan: Blood pressure appropriate 124/74 Continued Amlodipine 10mg po daily on admit, holding HCTZ/lisinopril given ALTHEA as above and hydrating BMP in AM (5) Hyperlipidemia: Plan: Chronic. On medications -Continue Atorvastatin 40mg po daily --> holding given ALTHEA/CK minimal elevation while hydrating Check TSH w/ AM labs, resume in AM if resolved/kidney function back to baseline (6) GERD (gastroesophageal reflux disease): Plan: Chronic, reported hasn't had issues since around 2017 Protonix IV daily on admit, increased to BID as above, added carafate No inpatient scope planned, GI on consult as above but no official note but was discussed with Dr Gordon this morning -GI cocktail as needed -Zofran as needed (7) Diabetes mellitus, type 2: Plan: Patient with hypoglycemia on arrival, now improved following oral intake and IV dextrose. He is on Humulin 70/30 30u BID and Humulin R sliding scale at home. Hypoglycemia possibly secondary to ALTHEA, decreased oral intake. -Lantus 10u BID -ISS -Hold Metformin -Goal blood sugar 110 - 140 -Continue Neurontin - decrease to 600mg po BID BSG improved to >100 on repeat. Monitor (8) Status post right knee replacement: Plan: Appears to be healing well. Pain is controlled -Continue PT -- he has not been getting much therapy at nursing home at all. Plan continued inpatient stay PPI IV BID, carafate, GI Avoid NSAIDs, holding diuretics, IVF for ALTHEA PT consulted-- Pending therapy evals, consider rehab at d/c short term given above but otherwise will plan for d/c back to nursing home when stable, likely in next 24-48 hours if ALTHEA resolved/symptoms controlled No bill, admit after midnight Admission and Anticipated Discharge Date Admission Date: January 24, 2022 Supervising Physician Co-Signing Physician Notes PA Supervision Note: I did not personally see or examine the patient today, but I verified all connell points of SAVI Spence's assessment and plan with the following exceptions/additions: None Subjective EVAL THIS MORNING, ADMIT AFTER MIDNIGHT Patient w/ belching, hx EGD and reports taking protonix and carafate in past. No issues since 2018 and has had scopes. No known bleeding ulcers but suspect at least gastritis given medications provided. He notes he has been taking 2 tylenol daily for knee pain since surgery along with ibuprofen 800mg up to four times daily fairly consistently. Had episode n/v , coffee ground emesis reported, no further but reports "clearing up." Was going to get medications yesterday and became lightheaded w/ nausea and vomiting. Discussed having GI weigh in but hgb stable and suspect able to treat conservatively. Kidney function improving, remains on IVF. Has not been up much/walking around and using a wheelchair mostly. Discussed getting PT evals and will see how he does. No fever/chills, chest pain. Shortness of breath due to upper GI discomfort in epigastric/LUQ region. Moved his bowels this morning, no blood noted but fecal occult not yet ordered but will monitor if further bowel movements. Review of Systems Review of Systems: All systems reviewed & are unremarkable except as noted in HPI & below Physical Exam Physical Exam: General: male sitting up in bed, 2 guards at bedside, NAD but +belching, reporting increased reflux HEENT: head normocephalic, atraumatic, mm dry, trachea midline Resp: CTAB, no w/c, 98% on RA CV: RRR, faint systolic murmur, no pitting edema GI: +BS, obese, mild epigastric tenderness to palpation, slight distension not able belching observed, no guarding/rebound : no roberts MSK/Neuro: moves all extremities, R knee prior surgical site looks good, no redness/drainage/wound dehiscence Psych: AOx3, pleasant and cooperative Skin: warm, well perfused, no obvious lesions/rashes Results & Data Results & Data ([facility]) Vital Signs (Past 12 Hours) Vital Signs Temp Pulse Pulse Resp BP BP Pulse Ox 01/24/22 07:54 36.5 C 60 18 124/73 98 01/24/22 04:30 01/24/22 04:30 36.9 C 73 18 133/78 97 01/24/22 03:53 75 13 144/70 H 94 01/24/22 02:00 69 18 136/76 99 01/24/22 01:00 72 18 126/70 99 01/24/22 00:30 70 16 128/77 100 01/24/22 00:00 72 20 128/76 100 01/23/22 23:31 69 18 121/71 100 01/23/22 23:11 73 18 110/68 96 01/23/22 22:47 69 16 101/55 L 100 O2 Del Method 01/24/22 07:54 Room Air 01/24/22 04:30 Room Air 01/24/22 04:30 Room Air 01/24/22 03:53 Room Air 01/24/22 02:00 01/24/22 01:00 01/24/22 00:30 01/24/22 00:00 01/23/22 23:31 01/23/22 23:11 01/23/22 22:47 Laboratory Results 01/24/22 01/24/22 01/24/22 Range/Units 08:57 08:57 08:57 WBC (4.8-10.8) K/ul RBC (4.63-6.08) M/uL Hgb (14.0-18.0) g/dl Hct (40.1-51.0) % MCV (80.0-100.0) fL MCH (25.0-34.0) pg MCHC (32.0-36.0) g/dL RDW Std Deviation (36.4-46.3) fL RDW Coeff of Alda (11.5-14.5) % Plt Count (130-400) K/uL MPV (9.4-12.4) fL Immature Gran % (Auto) % Neut % (Auto) % Lymph % (Auto) % [place] % (Auto) % Eos % (Auto) % Baso % (Auto) % Neut # (Auto) (1.4-6.5) K/uL Lymph # (Auto) (1.2-3.4) K/uL [place] # (Auto) (0.24-0.82) K/uL Eos # (Auto) (0-0.50) K/uL Baso # (Auto) (0-0.2) K/uL Immature Gran # (Auto) (0.00-0.02) K/uL Sodium 131 L (136-145) mmol/L Potassium 3.6 D Chloride 97 L (98-107) mmol/L Carbon Dioxide 26 (21-32) mmol/L Anion Gap 8 (3-11) BUN 28 H (6-23) mg/dl Creatinine 1.63 H D (0.6-1.4) mg/dl Est Cr Clr Drug Dosing 66.0 ml/min Est GFR ( Amer) 55.3 ml/min Est GFR (Non-Af Amer) 47.7 ml/min BUN/Creatinine Ratio 17.2 (10-20) Glucose 113 H (70-99(Fasting)) mg/dl POC Glucose (70-99) mg/dl Calcium 8.9 (8.5-10.1) mg/dl Phosphorus (2.5-4.9) mg/dl Magnesium 2.1 (1.7-2.4) mg/dl Iron 27 L (35-175) mcg/dl TIBC 228 L (250-450) mcg/dl Unsaturated IBC 201 (155-355) mcg/dl Transferrin % Sat 12 L (20-50) % Ferritin 271.9 (8-388) ng/ml Total Bilirubin 0.8 D (0.2-1.0) mg/dl AST 28 ALT 31 (7-52) U/L Alkaline Phosphatase 67 (34-104) U/L Total Creatine Kinase (30-223) U/L Troponin I High Sens (0-20) pg/ml Total Protein 6.6 (6.0-8.3) gm/dl Albumin 3.7 (3.4-5.0) gm/dl Globulin 2.9 (2.5-4.0) gm/dl Albumin/Globulin Ratio 1.3 (0.9-2) Vitamin B12 910 (180-914) pg/ml 25-OH Vitamin D Total (30-100) ng/ml Urine Color Urine Appearance (Clear) Urine pH (4.5-7.5) Ur Specific Elk (1.000-1.030) Urine Protein (Negative) Urine Glucose (UA) (Negative) Urine Ketones (Negative) Urine Blood (Negative) Urine Nitrite (Negative) Urine Bilirubin (Negative) Urine Urobilinogen (Negative) Ur Leukocyte Esterase (Negative) Ur Random Creatinine mg/dl Ur Random Sodium mmol/L Nasal Screen MRSA (PCR) (Negative) SARS-CoV-2, RNA, NAAT (NEGATIVE) 01/24/22 01/24/22 01/24/22 Range/Units 08:57 08:57 08:20 WBC 9.38 (4.8-10.8) K/ul RBC 4.84 (4.63-6.08) M/uL Hgb 12.9 L (14.0-18.0) g/dl Hct 37.5 L (40.1-51.0) % MCV 77.5 L (80.0-100.0) fL MCH 26.7 (25.0-34.0) pg MCHC 34.4 (32.0-36.0) g/dL RDW Std Deviation 38.5 (36.4-46.3) fL RDW Coeff of Alda 13.9 (11.5-14.5) % Plt Count 520 H (130-400) K/uL MPV 8.7 L (9.4-12.4) fL Immature Gran % (Auto) 0.3 % Neut % (Auto) 63.3 % Lymph % (Auto) 26.3 % [place] % (Auto) 8.0 % Eos % (Auto) 1.7 % Baso % (Auto) 0.4 % Neut # (Auto) 5.93 (1.4-6.5) K/uL Lymph # (Auto) 2.47 (1.2-3.4) K/uL [place] # (Auto) 0.75 (0.24-0.82) K/uL Eos # (Auto) 0.16 (0-0.50) K/uL Baso # (Auto) 0.04 (0-0.2) K/uL Immature Gran # (Auto) 0.03 H (0.00-0.02) K/uL Sodium (136-145) mmol/L Potassium Chloride (98-107) mmol/L Carbon Dioxide (21-32) mmol/L Anion Gap (3-11) BUN (6-23) mg/dl Creatinine (0.6-1.4) mg/dl Est Cr Clr Drug Dosing ml/min Est GFR ( Amer) ml/min Est GFR (Non-Af Amer) ml/min BUN/Creatinine Ratio (10-20) Glucose (70-99(Fasting)) mg/dl POC Glucose 109 H (70-99) mg/dl Calcium (8.5-10.1) mg/dl Phosphorus (2.5-4.9) mg/dl Magnesium (1.7-2.4) mg/dl Iron (35-175) mcg/dl TIBC (250-450) mcg/dl Unsaturated IBC (155-355) mcg/dl Transferrin % Sat (20-50) % Ferritin (8-388) ng/ml Total Bilirubin (0.2-1.0) mg/dl AST ALT (7-52) U/L Alkaline Phosphatase (34-104) U/L Total Creatine Kinase (30-223) U/L Troponin I High Sens (0-20) pg/ml Total Protein (6.0-8.3) gm/dl Albumin (3.4-5.0) gm/dl Globulin (2.5-4.0) gm/dl Albumin/Globulin Ratio (0.9-2) Vitamin B12 (180-914) pg/ml 25-OH Vitamin D Total 14.9 L (30-100) ng/ml Urine Color Urine Appearance (Clear) Urine pH (4.5-7.5) Ur Specific Elk (1.000-1.030) Urine Protein (Negative) Urine Glucose (UA) (Negative) Urine Ketones (Negative) Urine Blood (Negative) Urine Nitrite (Negative) Urine Bilirubin (Negative) Urine Urobilinogen (Negative) Ur Leukocyte Esterase (Negative) Ur Random Creatinine mg/dl Ur Random Sodium mmol/L Nasal Screen MRSA (PCR) (Negative) SARS-CoV-2, RNA, NAAT (NEGATIVE) 01/24/22 01/24/22 01/24/22 Range/Units 06:06 04:55 04:30 WBC (4.8-10.8) K/ul RBC (4.63-6.08) M/uL Hgb (14.0-18.0) g/dl Hct (40.1-51.0) % MCV (80.0-100.0) fL MCH (25.0-34.0) pg MCHC (32.0-36.0) g/dL RDW Std Deviation (36.4-46.3) fL RDW Coeff of Alda (11.5-14.5) % Plt Count (130-400) K/uL MPV (9.4-12.4) fL Immature Gran % (Auto) % Neut % (Auto) % Lymph % (Auto) % [place] % (Auto) % Eos % (Auto) % Baso % (Auto) % Neut # (Auto) (1.4-6.5) K/uL Lymph # (Auto) (1.2-3.4) K/uL [place] # (Auto) (0.24-0.82) K/uL Eos # (Auto) (0-0.50) K/uL Baso # (Auto) (0-0.2) K/uL Immature Gran # (Auto) (0.00-0.02) K/uL Sodium (136-145) mmol/L Potassium Chloride (98-107) mmol/L Carbon Dioxide (21-32) mmol/L Anion Gap (3-11) BUN (6-23) mg/dl Creatinine (0.6-1.4) mg/dl Est Cr Clr Drug Dosing ml/min Est GFR ( Amer) ml/min Est GFR (Non-Af Amer) ml/min BUN/Creatinine Ratio (10-20) Glucose (70-99(Fasting)) mg/dl POC Glucose (70-99) mg/dl Calcium (8.5-10.1) mg/dl Phosphorus 4.5 (2.5-4.9) mg/dl Magnesium 2.1 (1.7-2.4) mg/dl Iron (35-175) mcg/dl TIBC (250-450) mcg/dl Unsaturated IBC (155-355) mcg/dl Transferrin % Sat (20-50) % Ferritin (8-388) ng/ml Total Bilirubin (0.2-1.0) mg/dl AST ALT (7-52) U/L Alkaline Phosphatase (34-104) U/L Total Creatine Kinase 320 H (30-223) U/L Troponin I High Sens (0-20) pg/ml Total Protein (6.0-8.3) gm/dl Albumin (3.4-5.0) gm/dl Globulin (2.5-4.0) gm/dl Albumin/Globulin Ratio (0.9-2) Vitamin B12 (180-914) pg/ml 25-OH Vitamin D Total (30-100) ng/ml Urine Color Urine Appearance (Clear) Urine pH (4.5-7.5) Ur Specific Elk (1.000-1.030) Urine Protein (Negative) Urine Glucose (UA) (Negative) Urine Ketones (Negative) Urine Blood (Negative) Urine Nitrite (Negative) Urine Bilirubin (Negative) Urine Urobilinogen (Negative) Ur Leukocyte Esterase (Negative) Ur Random Creatinine 52.3 mg/dl Ur Random Sodium 30 mmol/L Nasal Screen MRSA (PCR) Negative (Negative) SARS-CoV-2, RNA, NAAT (NEGATIVE) 01/24/22 01/24/22 01/24/22 Range/Units 04:27 01:48 01:20 WBC (4.8-10.8) K/ul RBC (4.63-6.08) M/uL Hgb (14.0-18.0) g/dl Hct (40.1-51.0) % MCV (80.0-100.0) fL MCH (25.0-34.0) pg MCHC (32.0-36.0) g/dL RDW Std Deviation (36.4-46.3) fL RDW Coeff of Alda (11.5-14.5) % Plt Count (130-400) K/uL MPV (9.4-12.4) fL Immature Gran % (Auto) % Neut % (Auto) % Lymph % (Auto) % [place] % (Auto) % Eos % (Auto) % Baso % (Auto) % Neut # (Auto) (1.4-6.5) K/uL Lymph # (Auto) (1.2-3.4) K/uL [place] # (Auto) (0.24-0.82) K/uL Eos # (Auto) (0-0.50) K/uL Baso # (Auto) (0-0.2) K/uL Immature Gran # (Auto) (0.00-0.02) K/uL Sodium (136-145) mmol/L Potassium Chloride (98-107) mmol/L Carbon Dioxide (21-32) mmol/L Anion Gap (3-11) BUN (6-23) mg/dl Creatinine (0.6-1.4) mg/dl Est Cr Clr Drug Dosing ml/min Est GFR ( Amer) ml/min Est GFR (Non-Af Amer) ml/min BUN/Creatinine Ratio (10-20) Glucose (70-99(Fasting)) mg/dl POC Glucose 174 H (70-99) mg/dl Calcium (8.5-10.1) mg/dl Phosphorus (2.5-4.9) mg/dl Magnesium (1.7-2.4) mg/dl Iron (35-175) mcg/dl TIBC (250-450) mcg/dl Unsaturated IBC (155-355) mcg/dl Transferrin % Sat (20-50) % Ferritin (8-388) ng/ml Total Bilirubin (0.2-1.0) mg/dl AST ALT (7-52) U/L Alkaline Phosphatase (34-104) U/L Total Creatine Kinase (30-223) U/L Troponin I High Sens 12.5 (0-20) pg/ml Total Protein (6.0-8.3) gm/dl Albumin (3.4-5.0) gm/dl Globulin (2.5-4.0) gm/dl Albumin/Globulin Ratio (0.9-2) Vitamin B12 (180-914) pg/ml 25-OH Vitamin D Total (30-100) ng/ml Urine Color Urine Appearance (Clear) Urine pH (4.5-7.5) Ur Specific Elk (1.000-1.030) Urine Protein (Negative) Urine Glucose (UA) (Negative) Urine Ketones (Negative) Urine Blood (Negative) Urine Nitrite (Negative) Urine Bilirubin (Negative) Urine Urobilinogen (Negative) Ur Leukocyte Esterase (Negative) Ur Random Creatinine mg/dl Ur Random Sodium mmol/L Nasal Screen MRSA (PCR) (Negative) SARS-CoV-2, RNA, NAAT NEGATIVE (NEGATIVE) 01/24/22 01/23/22 01/23/22 Range/Units 00:15 23:30 23:00 WBC (4.8-10.8) K/ul RBC (4.63-6.08) M/uL Hgb (14.0-18.0) g/dl Hct (40.1-51.0) % MCV (80.0-100.0) fL MCH (25.0-34.0) pg MCHC (32.0-36.0) g/dL RDW Std Deviation (36.4-46.3) fL RDW Coeff of Alda (11.5-14.5) % Plt Count (130-400) K/uL MPV (9.4-12.4) fL Immature Gran % (Auto) % Neut % (Auto) % Lymph % (Auto) % [place] % (Auto) % Eos % (Auto) % Baso % (Auto) % Neut # (Auto) (1.4-6.5) K/uL Lymph # (Auto) (1.2-3.4) K/uL [place] # (Auto) (0.24-0.82) K/uL Eos # (Auto) (0-0.50) K/uL Baso # (Auto) (0-0.2) K/uL Immature Gran # (Auto) (0.00-0.02) K/uL Sodium (136-145) mmol/L Potassium Chloride (98-107) mmol/L Carbon Dioxide (21-32) mmol/L Anion Gap (3-11) BUN (6-23) mg/dl Creatinine (0.6-1.4) mg/dl Est Cr Clr Drug Dosing ml/min Est GFR ( Amer) ml/min Est GFR (Non-Af Amer) ml/min BUN/Creatinine Ratio (10-20) Glucose (70-99(Fasting)) mg/dl POC Glucose 93 (70-99) mg/dl Calcium (8.5-10.1) mg/dl Phosphorus (2.5-4.9) mg/dl Magnesium (1.7-2.4) mg/dl Iron (35-175) mcg/dl TIBC (250-450) mcg/dl Unsaturated IBC (155-355) mcg/dl Transferrin % Sat (20-50) % Ferritin (8-388) ng/ml Total Bilirubin (0.2-1.0) mg/dl AST ALT (7-52) U/L Alkaline Phosphatase (34-104) U/L Total Creatine Kinase 448 H (30-223) U/L Troponin I High Sens (0-20) pg/ml Total Protein (6.0-8.3) gm/dl Albumin (3.4-5.0) gm/dl Globulin (2.5-4.0) gm/dl Albumin/Globulin Ratio (0.9-2) Vitamin B12 (180-914) pg/ml 25-OH Vitamin D Total (30-100) ng/ml Urine Color Yellow Urine Appearance Clear (Clear) Urine pH 6.0 (4.5-7.5) Ur Specific Elk 1.015 (1.000-1.030) Urine Protein Negative (Negative) Urine Glucose (UA) Negative (Negative) Urine Ketones Negative (Negative) Urine Blood Negative (Negative) Urine Nitrite Negative (Negative) Urine Bilirubin Negative (Negative) Urine Urobilinogen Negative (Negative) Ur Leukocyte Esterase Negative (Negative) Ur Random Creatinine mg/dl Ur Random Sodium mmol/L Nasal Screen MRSA (PCR) (Negative) SARS-CoV-2, RNA, NAAT (NEGATIVE) 01/23/22 01/23/22 01/23/22 Range/Units 23:00 23:00 21:52 WBC (4.8-10.8) K/ul RBC (4.63-6.08) M/uL Hgb (14.0-18.0) g/dl Hct (40.1-51.0) % MCV (80.0-100.0) fL MCH (25.0-34.0) pg MCHC (32.0-36.0) g/dL RDW Std Deviation (36.4-46.3) fL RDW Coeff of Alda (11.5-14.5) % Plt Count (130-400) K/uL MPV (9.4-12.4) fL Immature Gran % (Auto) % Neut % (Auto) % Lymph % (Auto) % [place] % (Auto) % Eos % (Auto) % Baso % (Auto) % Neut # (Auto) (1.4-6.5) K/uL Lymph # (Auto) (1.2-3.4) K/uL [place] # (Auto) (0.24-0.82) K/uL Eos # (Auto) (0-0.50) K/uL Baso # (Auto) (0-0.2) K/uL Immature Gran # (Auto) (0.00-0.02) K/uL Sodium 130 L (136-145) mmol/L Potassium 2.8 L D TNP Chloride 92 L (98-107) mmol/L Carbon Dioxide 25 (21-32) mmol/L Anion Gap 13 H (3-11) BUN 35 H (6-23) mg/dl Creatinine 2.52 H D (0.6-1.4) mg/dl Est Cr Clr Drug Dosing 42.9 ml/min Est GFR ( Amer) 32.7 ml/min Est GFR (Non-Af Amer) 28.2 ml/min BUN/Creatinine Ratio 13.9 (10-20) Glucose 45 L* (70-99(Fasting)) mg/dl POC Glucose (70-99) mg/dl Calcium 10.2 H (8.5-10.1) mg/dl Phosphorus (2.5-4.9) mg/dl Magnesium (1.7-2.4) mg/dl Iron (35-175) mcg/dl TIBC (250-450) mcg/dl Unsaturated IBC (155-355) mcg/dl Transferrin % Sat (20-50) % Ferritin (8-388) ng/ml Total Bilirubin 1.3 H (0.2-1.0) mg/dl AST 28 TNP ALT 27 (7-52) U/L Alkaline Phosphatase 66 (34-104) U/L Total Creatine Kinase (30-223) U/L Troponin I High Sens 15.6 (0-20) pg/ml Total Protein 7.4 (6.0-8.3) gm/dl Albumin 4.2 (3.4-5.0) gm/dl Globulin 3.2 (2.5-4.0) gm/dl Albumin/Globulin Ratio 1.3 (0.9-2) Vitamin B12 (180-914) pg/ml 25-OH Vitamin D Total (30-100) ng/ml Urine Color Urine Appearance (Clear) Urine pH (4.5-7.5) Ur Specific El[place] (1.000-1.030) Urine Protein (Negative) Urine Glucose (UA) (Negative) Urine Ketones (Negative) Urine Blood (Negative) Urine Nitrite (Negative) Urine Bilirubin (Negative) Urine Urobilinogen (Negative) Ur Leukocyte Esterase (Negative) Ur Random Creatinine mg/dl Ur Random Sodium mmol/L Nasal Screen MRSA (PCR) (Negative) SARS-CoV-2, RNA, NAAT (NEGATIVE) 01/23/22 Range/Units 21:52 WBC 13.59 H (4.8-10.8) K/ul RBC 5.16 (4.63-6.08) M/uL Hgb 13.9 L (14.0-18.0) g/dl Hct 39.7 L (40.1-51.0) % MCV 76.9 L (80.0-100.0) fL MCH 26.9 (25.0-34.0) pg MCHC 35.0 (32.0-36.0) g/dL RDW Std Deviation 37.3 (36.4-46.3) fL RDW Coeff of Alda 13.5 (11.5-14.5) % Plt Count 540 H (130-400) K/uL MPV 9.4 (9.4-12.4) fL Immature Gran % (Auto) 0.4 % Neut % (Auto) 66.0 % Lymph % (Auto) 24.4 % [place] % (Auto) 8.5 % Eos % (Auto) 0.4 % Baso % (Auto) 0.3 % Neut # (Auto) 8.96 H (1.4-6.5) K/uL Lymph # (Auto) 3.32 (1.2-3.4) K/uL [place] # (Auto) 1.15 H (0.24-0.82) K/uL Eos # (Auto) 0.06 (0-0.50) K/uL Baso # (Auto) 0.04 (0-0.2) K/uL Immature Gran # (Auto) 0.06 H (0.00-0.02) K/uL Sodium (136-145) mmol/L Potassium Chloride (98-107) mmol/L Carbon Dioxide (21-32) mmol/L Anion Gap (3-11) BUN (6-23) mg/dl Creatinine (0.6-1.4) mg/dl Est Cr Clr Drug Dosing ml/min Est GFR ( Amer) ml/min Est GFR (Non-Af Amer) ml/min BUN/Creatinine Ratio (10-20) Glucose (70-99(Fasting)) mg/dl POC Glucose (70-99) mg/dl Calcium (8.5-10.1) mg/dl Phosphorus (2.5-4.9) mg/dl Magnesium (1.7-2.4) mg/dl Iron (35-175) mcg/dl TIBC (250-450) mcg/dl Unsaturated IBC (155-355) mcg/dl Transferrin % Sat (20-50) % Ferritin (8-388) ng/ml Total Bilirubin (0.2-1.0) mg/dl AST ALT (7-52) U/L Alkaline Phosphatase (34-104) U/L Total Creatine Kinase (30-223) U/L Troponin I High Sens (0-20) pg/ml Total Protein (6.0-8.3) gm/dl Albumin (3.4-5.0) gm/dl Globulin (2.5-4.0) gm/dl Albumin/Globulin Ratio (0.9-2) Vitamin B12 (180-914) pg/ml 25-OH Vitamin D Total (30-100) ng/ml Urine Color Urine Appearance (Clear) Urine pH (4.5-7.5) Ur Specific Elk (1.000-1.030) Urine Protein (Negative) Urine Glucose (UA) (Negative) Urine Ketones (Negative) Urine Blood (Negative) Urine Nitrite (Negative) Urine Bilirubin (Negative) Urine Urobilinogen (Negative) Ur Leukocyte Esterase (Negative) Ur Random Creatinine mg/dl Ur Random Sodium mmol/L Nasal Screen MRSA (PCR) (Negative) SARS-CoV-2, RNA, NAAT (NEGATIVE) Diagnostic Findings Chest X-Ray 01/23/22 22:01 SINGLE VIEW CHEST CLINICAL HISTORY: Atypical chest pain. Illness. FINDINGS: An AP, portable, upright chest radiograph is obtained. No prior studies are available for comparison at the time of dictation. The examination is degraded by portable technique and patient rotation. The cardiomediastinal silhouette is unremarkable. The lungs and pleural spaces are clear. No pneumothorax is seen. The bony thorax is grossly intact. IMPRESSION: No active disease in the chest. ACT 112: Negative or not required by law. Electronically signed by: Hunter Freitas M.D. 01/23/2022 11:46 PM Abdomen/Pelvis CT 01/23/22 22:31 CT chest diagnostic wo con, CT abd pelvis wo con CT DOSE: 1354.01 mGy.cm HISTORY: severe back to chest pain w/ R leg feeling cold TECHNIQUE: Multiaxial CT images of the chest, abdomen, and pelvis were performed without contrast. A dose lowering technique was utilized adhering to the principles of ALARA. COMPARISON: Abdomen and pelvis CT 01/22/2022. FINDINGS: Chest CT: Mild anterior wedging at T12 which is likely chronic. No acute fractures within the chest. The central airways are patent. No focal lung consolidations. No evidence for pulmonary edema. Multiple tiny centrilobular nodules seen within the right upper lobe. This may be due to a chronic bronchiolitis. Normal thyroid gland. No mediastinal or hilar lymphadenopathy. The heart is normal in size. No pleural or pericardial effusions. Normal esophagus. Normal caliber thoracic aorta. Mild to moderate calcified plaque within the coronary arteries. Abdomen/pelvis CT: No pneumoperitoneum. No pneumatosis. No fractures identified within the visualized osseous structures. The unenhanced liver, gallbladder, spleen, adrenal glands are unremarkable. The pancreas remains atrophic. Tiny fat-containing umbilical hernia. Normal bladder. The prostate gland remains mildly enlarged. No bowel wall thickening or obstruction. Normal appendix. Normal caliber abdominal aorta. No retroperitoneal or pelvic lymphadenopathy. IMPRESSION: 1. No acute abnormality within the chest, abdomen, or pelvis. 2. A few tiny centrilobular nodules within the right upper lobe. This may represent a mild chronic bronchiolitis. ACT 112: Negative or not required by law. Electronically signed by: Alirio Cason M.D. 01/24/2022 7:[address] 01/23/22 22:31 CT chest diagnostic wo con, CT abd pelvis wo con CT DOSE: 1354.01 mGy.cm HISTORY: severe back to chest pain w/ R leg feeling cold TECHNIQUE: Multiaxial CT images of the chest, abdomen, and pelvis were performed without contrast. A dose lowering technique was utilized adhering to the principles of ALARA. COMPARISON: Abdomen and pelvis CT 01/22/2022. FINDINGS: Chest CT: Mild anterior wedging at T12 which is likely chronic. No acute fractures within the chest. The central airways are patent. No focal lung consolidations. No evidence for pulmonary edema. Multiple tiny centrilobular nodules seen within the right upper lobe. This may be due to a chronic bro nchiolitis. Normal thyroid gland. No mediastinal or hilar lymphadenopathy. The heart is normal in size. No pleural or pericardial effusions. Normal esophagus. Normal caliber thoracic aorta. Mild to moderate calcified plaque within the coronary arteries. Abdomen/pelvis CT: No pneumoperitoneum. No pneumatosis. No fractures identified within the visualized osseous structures. The unenhanced liver, gallbladder, spleen, adrenal glands are unremarkable. The pancreas remains atrophic. Tiny fat-containing umbilical hernia. Normal bladder. The prostate gland remains mildly enlarged. No bowel wall thickening or obstruction. Normal appendix. Normal caliber abdominal aorta. No retroperitoneal or pelvic lymphadenopathy. IMPRESSION: 1. No acute abnormality within the chest, abdomen, or pelvis. 2. A few tiny centrilobular nodules within the right upper lobe. This may represent a mild chronic bronchiolitis. ACT 112: Negative or not required by law. Electronically signed by: Alirio Cason M.D. 01/24/2022 7:36 AM PG Care Time/CCT Total # of Minutes Spent Total Time Spent with Patient: Total time spent is greater than 50% in coordination of care (as documented) at patient's floor/unit and/or counseling patient: Coding Level of Care Code None Diagnoses Nausea and vomiting R11.2 ALTHEA (acute kidney injury) N17.9 Hypoglycemia E16.2 Hypertension I10 Hyperlipidemia E78.5 GERD (gastroesophageal reflux disease) K21.9 Diabetes mellitus, type 2 E11.9 Status post right knee replacement Z96.651
[2022-01-24] MEDS ORDERED: PANTOprazole 40 MG in SYRINGE 0 ML IV SCH (11:00)
[2022-01-24] MEDS: PANTOprazole 40 MG in SYRINGE 0 ML IV SCH ×2 (12:00→20:28)
[2022-01-24] MEDS: SUCRALFATE 1 GM/10 ML UDC PO SCH ×3 (12:00→20:21)
--- NOTE | 2022-01-24 14:37 | Electrocardiogram Report ---
Test Reason : Blood Pressure : / mmHG Vent. Rate : 071 BPM Atrial Rate : 071 BPM P-R Int : 200 ms QRS Dur : 088 ms QT Int : 398 ms P-R-T Axes : 064 049 015 degrees QTc Int : 432 ms Normal sinus rhythm Normal ECG When compared with ECG of 22-JAN-2022 01:39, No significant change was found Confirmed by Que Aldrich ([id number]) on 01/24/2022 2:36:58 PM Referred By: Mirna [facility] Confirmed By:Que Aldrich
--- NOTE | 2022-01-24 15:45 | Gastrointestinal Consultation ---
Date of Consultation January 24, 2022 Assessment & Plan (1) GERD (gastroesophageal reflux disease): (2) ALTHEA (acute kidney injury): (3) Coffee ground emesis: (4) Abdominal pain, epigastric: Hemodynamically stable at present Increase Pantoprazole to 40 mg IV BID Add Carafate 1 g by mouth AC and HS x 10 days Avoid NSAID's, ok to use Tylenol for pain control No need for emergent EGD at present Will follow his clinical course and make further recommendations as needed. History of Present Illness Reason for Consultation: Nausea, Coffee ground emesis, NSAID use Requesting Physician: Roland Freeman is a 51 yo male who underwent a R TKR on 01/06/2022, and did well, post-procedure, and was discharged. He subsequently had been taking Ibuprofen 800 mg up to 3 times daily, and presented to the ER on 01/22 with reported coffee ground emesis. His H/H at that time was stable, and he was discharged with a diagnosis of ALTHEA and dehydration. He returned to the ER this morning with abdominal pain, and lightheadedness. He reportedly had an episode of coffee ground emesis, as well. He states that he was not receiving his carafate or twice daily PPI as prescribed. Upon arrival to the ER, he was noted to have an H/H of 13.9/39.7 and was given IVF due to an ALTHEA, and his repeat H/H this AM was 12.9/37.5. He was subsequently admitted and placed on Protonix IV and Zofran PRN. At the time I saw him, he was feeling slightly better. He did complain of epigastric pain 6/10 in intensity, non-radiating, exacerbated by eating. He states that his last EGD in 2016, was unremarkable. He states that he has not been seeing any melena or hematochezia. He denies any current dysphagia or odynophagia, but does have intermittent GERD symptoms. He denies any further complaints. Attending Physician: Melisa Celestin MD Allergies Allergy/AdvReac Type Severity Reaction Status Date / Time morphine Allergy Unknown [facility] Verified 01/24/22 00:14 TWP LIST tomato Allergy Unknown [facility] Verified 01/24/22 07:29 TWP LIST Home Medications Medication Instructions Recorded Confirmed Type atorvastatin 40 mg tablet 40 mg PO DAILY 01/08/19 01/24/22 History gabapentin 600 mg tablet 600 mg PO BID 01/08/19 01/24/22 History insulin human U-100 NPH-regulr 30 unit subcut BID 01/08/19 01/24/22 History 70-30 mix 100 unit/mL subcutaneous susp (Humulin 70/30 U-100 Insulin) insulin regular human 100 unit/mL 1 sliding scale dose subcut UD 01/08/19 01/24/22 History injection solution (Humulin R Regular U-100 Insulin) amlodipine 10 mg tablet 10 mg PO DAILY 01/01/22 01/24/22 History gabapentin 800 mg tablet 800 mg PO BID 01/01/22 01/24/22 History hydrochlorothiazide 25 mg tablet 25 mg PO BID 01/01/22 01/24/22 History lisinopril 40 mg tablet 40 mg PO DAILY 01/01/22 01/24/22 History metformin 1,000 mg tablet 1,000 mg PO BID 01/01/22 01/24/22 History acetaminophen 500 mg tablet 1,000 mg PO QID PRN as directed 01/24/22 01/24/22 History ascorbic acid (vitamin C) 500 mg 500 mg PO BIDM 01/24/22 01/24/22 History chewable tablet (Vitamin C) aspirin 81 mg tablet,delayed 81 mg PO BID 01/24/22 01/24/22 History release diclofenac sodium 1 % topical gel 1 ea topical BID 01/24/22 01/24/22 History docusate sodium 100 mg capsule 100 mg PO BID 01/24/22 01/24/22 History ferrous gluconate 324 mg (38 mg 324 mg PO BIDM 01/24/22 01/24/22 History iron) tablet lansoprazole 30 mg capsule,delayed 30 mg PO BID 01/24/22 01/24/22 History release ondansetron HCl 4 mg tablet 4 mg PO TID PRN as directed 01/24/22 01/24/22 History promethazine 25 mg/mL injection 25 mg IM BID PRN as directed 01/24/22 01/24/22 History solution Patient History Medical History Antisocial personality disorder Diabetes mellitus, type 2 IDDM GERD (gastroesophageal reflux disease) History of COVID-19 03/11/2020 Hyperlipidemia Hypertension 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 Osteoarthritis of right knee Sleep apnea Surgical History H/O fasciotomy LEFT LEG +SKIN GRAFT Social History Smoking Status: Never smoker Hx Alcohol Use: No Hx Substance Use: No Preferred Language: Croatian Communication Ability: Effective 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 Beliefs That Will Affect Care: None Current Living Situation: Other Current Living Situation Comment: [facility] Other Information That Helps Us Care for You: No Feels Safe at Home: Yes Assistive Devices: None Review of Systems Review of Systems: All systems reviewed & are unremarkable except as noted in Subjective Physical Exam Constitutional: WD/WN, vitals as above Eyes: + anicteric sclerae Neck: normal visual inspection Respiratory: normal respiratory effort, lungs clear to auscultation Cardiovascular: RRR, no murmur, no edema Gastrointestinal (Abdomen): Inspection/Auscultation: abdomen normal to inspection and normal bowel sounds; abdomen not distended Percussion/Palpation: + abdomen tender (epigastric) and abdomen soft; no guarding and abdomen not rigid Skin: no rashes, warm and dry Psychiatric: A+Ox3, euthymic affect Results & Data ([facility]) Vital Signs (Past 12 Hours) Vital Signs Temp Pulse Pulse Resp BP BP Pulse Ox 01/24/22 07:54 36.5 C 60 18 124/73 98 01/24/22 04:30 01/24/22 04:30 36.9 C 73 18 133/78 97 01/24/22 03:53 75 13 144/70 H 94 O2 Del Method 01/24/22 07:54 Room Air 01/24/22 04:30 Room Air 01/24/22 04:30 Room Air 01/24/22 03:53 Room Air PG Care Time/CCT Total # of Minutes Spent Total Time Spent with Patient: Total time spent is greater than 50% in coordination of care (as documented) at patient's floor/unit and/or counseling patient: Coding Level of Care Code 12738 Inpt Consult Level 4 Diagnoses GERD (gastroesophageal reflux disease) K21.9 ALTHEA (acute kidney injury) N17.9 Coffee ground emesis K92.0 Abdominal pain, epigastric R10.13
[2022-01-24] MEDS ORDERED: IRON SUCROSE 200 MG in 0.9 % SODIUM CHLORIDE 100 ML IV ONE (17:55)
[2022-01-24] MEDS ORDERED: IRON SUCROSE 300 MG in SODIUM CHLORIDE 0.9% 250 ML IV ONE (17:56)
[2022-01-25 06:03] LABS: Hematocrit (blood only) 36.3 % (40.1-51.0); Hemoglobin 12.3 g/dl (14.0-18.0); Mean Corpuscular Hemoglobin 26.7 pg (25.0-34.0); Mean Corpuscular Hgb Conc 33.9 g/dL (32.0-36.0); Mean Corpuscular Volume 78.9 fL (80.0-100.0); Mean Platelet Volume 8.8 fL (9.4-12.4); Platelet Count 460 K/uL (130-400); RDW Coefficient of Variation 13.7 % (11.5-14.5); RDW Standard Deviation 38.9 fL (36.4-46.3); White Blood Count 8.56 K/ul (4.8-10.8)
[2022-01-25 06:28] LABS: Albumin Level 3.6 gm/dl (3.4-5.0); Bilirubin Direct 0.2 mg/dl (0-0.2); Bilirubin,Total 0.9 mg/dl (0.2-1.0); Calcium 8.8 mg/dl (8.5-10.1); Est GFR (African American) 79.3 ml/min; Est GFR (Non-African American) 68.4 ml/min; Potassium 4.3 mmol/L (3.5-5.1); Total Protein 6.2 gm/dl (6.0-8.3)
--- NOTE | 2022-01-25 08:13 | Hospitalist Progress Note ---
Date of Service January 25, 2022 Assessment & Plan (1) Abdominal pain, epigastric: Plan: Patient with recent Right Total knee replacement with Dr Cifuentes on 01/06 and discharged back to longterm instead of rehab as reportedly doing too well for rehab. Had not been working with knee/therapy much and using wheelchair at times to get down to get medications from [facility] and developed n/v/near syncope. Noted ER on 01/22 for reported coffee ground emesis/ALTHEA, tx w/ IVF and sent back to longterm. BUN/Cr 39/1.56 at that time. Remained on ibuprofen at that time, not on medication list during ER visit CTAP/CT chest on admit without acute process, possible chronic bronchiolitis? SUSPECTED UGIB/PUD given chronic dyspepsia reported/PPI use with Carafate after multiple EGD in past. Denied any known gastric ulcers/active bleeding. Possible ?h. 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 Gabapentin reduced to 600mg BID (would rec reduction in dose from 1400mg BID -- asked CM to confirm, check on Wednesday) IVF provided, PO K replacement --> Cr 1.2. K 4.3. Additional 500cc @ 80cc/hr provided but much improved from day prior GI on consult -- no inpatient scope planned given stability of hgb but will plan for outpatient follow up -- Did message Dr Gordon for ?possible underlying H. Pylori -- rec stool antigen testing, already had been ordered Denies any further lightheadedness/dizziness but does note he increased belching and added Pepcid BID, viscous lidocaine x 1 to see if any effectiveness (reported given Dilaudid at [facility] in past). H pylori antigen testing ordered Continues on Protonix IV BID for another 24 hours, Carafate QID fecal occult checked, + (of note, was to be on PO iron BID, did get Venofer x1 IV on 01/24 -- suspect elevated BSG from sucrose) Hgb remains stable at 12.3 with copious IVF replacement for ALTHEA. Antiemetics prn Monitor labs/symptoms in AM (2) Coffee ground emesis: Plan: no further reported, tx as above continue PPI BID, carafate at d/c planned, outpt GI f/u (3) Nausea and vomiting: Plan: antiemetics prn, tx as outlined (4) ALTHEA (acute kidney injury): Plan: acute kidney injury on admit w/ Cr 2.52 suspected multifactorial in setting of n/v/dehydration, NSAID use w/ ASA for DVT prophylaxis for recent R knee surgery as well as medication induced as he is on HCTZ 25mg, lisinopril 40mg daily IVF as above, K replacement Cr almost back to baseline, 1.2. Improved PO intake --> 500cc ordered for today then stop Continue to hold HCTZ/lisinopril for now, consider resuming lisinopril if needed for BP but may consider reducing d/c HCTZ to prevent worsening kidney damage, and hypoK on admit likely from combination Continue holding metformin, SSI ordered CK was 448--> 320, statin held. TSH wnl. UA unremarkable Avoiding nephrotoxins, renal dose meds as above BMP in AM (5) Hypoglycemia: Plan: 45 on admit -- likely 2nd to n/v/althea/insulin use and reduced PO intake. BSG 113 on repeat NO FURTHER HYPOGLYCEMIA--> did have elevation last night likely from venofer infusion last evening Glargine 10u BID ordered on admit - PO intake reportedly improved and elevated BSGs, increase to 15u BID Monitor w/ ISS as needed, adjustments as needed (6) Hypertension: Plan: Blood pressure appropriate 135/85 Continues on amlodipine 10mg daily Holding HCTZ/lisinopril as above and prior hydration. Monitor, consider reduction in BP medications pending readings off of these to prevent worsening dehydration/kidney damage (7) Hyperlipidemia: Plan: Chronic. On medications Continued Atorvastatin 40mg po daily on admit, placed on hold given ALTHEA/CK elevation on admit. IVF hydration provided, CK normalized on repeat Resume statin (8) GERD (gastroesophageal reflux disease): Plan: Chronic, reported hasn't had issues since around 2018 Protonix IV daily on admit, increased to BID as above, added carafate No inpatient scope planned, GI on consult as above but no official note but was discussed with Dr Gordon this morning H pylori stool testing -GI cocktail as needed -- ordered x 1 now -Zofran as needed (9) Diabetes mellitus, type 2: Plan: A1c 7.5 as above under hypoglycemia (10) Status post right knee replacement: Plan: Appears to be healing well. Pain is controlled Consulted orthopedics given patient reported discomfort. Does not appear infected but does have some minimal swelling/effusion. Patient reported not having seen Dr Cifuentes in f/u and req consultation. Placed PT consulted while inpatient -- he has not been getting much therapy at longterm at all he reports Plan continued inpatient stay PPI IV BID, carafate, GI on consult Check H pylori stool antigen continue holding diuretics, IVF for ALTHEA Avoid NSAIDs at d/c PT consulted-- Pending therapy evals, consider rehab at d/c short term given above but otherwise will plan for d/c back to longterm when stable, possible in next 24 hours Ortho consulted per pt request for Dr Cifuentes for his R knee -- defer imaging until eval, does not appear infected Admission and Anticipated Discharge Date Admission Date: January 24, 2022 Supervising Physician Co-Signing Physician Notes PA Supervision Note: I did not personally see or examine the patient today, but I verified all connell points of SAVI Spence's assessment and plan with the following exceptions/additions: None Subjective eval this morning abd pain improved but having ALOT of belching/dyspepsia. Discussed likely combination of NSAIDs w/ ibuprofen (which was encouraged to AVOID) as well as aspirin use for DVT prophylaxis of his knee. discussed giving dose of viscous lidocaine, but will keep inpatient and continue to monitor for now. if effective can continue. Was to be on Pepcid BID, discussed need PPI BID but can add Pepcid bID to his PPI. Eating/drinking, but does get discomfort to epigastric/stomach following eating. Discussed Carafate for any ulcers but would definitely continue this at discharge, at least several weeks if not indefinitely. Cr improved. Hgb stable, no need for inpatient scope. Did message Dr Gordon about possible H. Pylori given symptoms. Will check stool antigen test in meantime. Patient notes having EGD in [place], [place], etc. Could consider req records. Regarding knee, pain controlled, steri-strips in place. No f/u w/ Dr Esau duong eported, wanting to see if able to see tomorrow while inpatient. Having discomfort to the back of his knee. Does have some fluid/effusion to L knee, however no erythema/warmth/drainage. No fever/chills, chest pain. Review of Systems Review of Systems: All systems reviewed & are unremarkable except as noted in HPI & below Physical Exam Physical Exam: General: male sitting up in bed, 2 guards at bedside, NAD but notable belching/hiccups HEENT: head normocephalic, atraumatic, mm improved, trachea midline Resp: CTAB, no w/c, 100% on RA CV: RRR, faint systolic murmur, no pitting edema GI: +BS, obese, mild epigastric tenderness to palpation, slight distension (improved), no guarding/rebound : no roberts MSK/Neuro: moves all extremities, R knee prior surgical site looks good/incision well approximated, steri strips remain in place, slight effusion R knee, no erythema/warmth, calf nontender, pulse palpable Psych: AOx3, pleasant and cooperative Skin: warm, well perfused, no obvious lesions/rashes Results & Data Results & Data ([facility]) Vital Signs (Past 12 Hours) Vital Signs Temp Pulse Pulse Resp BP Pulse Ox O2 Del Method 01/25/22 07:36 36.6 C 67 18 153/86 H 100 Room Air 01/24/22 20:20 Room Air, CPAP 01/24/22 23:24 73 14 97 01/24/22 22:33 37.0 C 73 18 147/85 H 100 Room Air FiO2 01/25/22 07:36 01/24/22 20:20 01/24/22 23:24 21 01/24/22 22:33 Laboratory Results 01/25/22 01/25/22 01/25/22 Range/Units 05:34 05:34 05:34 WBC 8.56 (4.8-10.8) K/ul RBC 4.60 L (4.63-6.08) M/uL Hgb 12.3 L (14.0-18.0) g/dl Hct 36.3 L (40.1-51.0) % MCV 78.9 L (80.0-100.0) fL MCH 26.7 (25.0-34.0) pg MCHC 33.9 (32.0-36.0) g/dL RDW Std Deviation 38.9 (36.4-46.3) fL RDW Coeff of Alda 13.7 (11.5-14.5) % Plt Count 460 H (130-400) K/uL MPV 8.8 L (9.4-12.4) fL Immature Gran % (Auto) % Neut % (Auto) % Lymph % (Auto) % [place] % (Auto) % Eos % (Auto) % Baso % (Auto) % Neut # (Auto) (1.4-6.5) K/uL Lymph # (Auto) (1.2-3.4) K/uL [place] # (Auto) (0.24-0.82) K/uL Eos # (Auto) (0-0.50) K/uL Baso # (Auto) (0-0.2) K/uL Immature Gran # (Auto) (0.00-0.02) K/uL Sodium 135 L (136-145) mmol/L Potassium 4.3 (3.5-5.1) mmol/L Chloride 101 (98-107) mmol/L Carbon Dioxide 29 (21-32) mmol/L Anion Gap 5 (3-11) BUN 17 (6-23) mg/dl Creatinine 1.21 D (0.6-1.4) mg/dl Est Cr Clr Drug Dosing 89.0 ml/min Est GFR ( Amer) 79.3 ml/min Est GFR (Non-Af Amer) 68.4 ml/min BUN/Creatinine Ratio 14.0 (10-20) Glucose 166 H (70-99(Fasting)) mg/dl POC Glucose (70-99) mg/dl Calcium 8.8 (8.5-10.1) mg/dl Magnesium (1.7-2.4) mg/dl Iron (35-175) mcg/dl TIBC (250-450) mcg/dl Unsaturated IBC (155-355) mcg/dl Transferrin % Sat (20-50) % Ferritin (8-388) ng/ml Total Bilirubin 0.9 (0.2-1.0) mg/dl Direct Bilirubin 0.2 (0-0.2) mg/dl AST 17 (13-39) U/L ALT 28 (7-52) U/L Alkaline Phosphatase 67 (34-104) U/L Total Creatine Kinase 157 (30-223) U/L Total Protein 6.2 (6.0-8.3) gm/dl Albumin 3.6 (3.4-5.0) gm/dl Globulin (2.5-4.0) gm/dl Albumin/Globulin Ratio (0.9-2) Vitamin B12 (180-914) pg/ml 25-OH Vitamin D Total (30-100) ng/ml TSH 0.830 (0.300-4.500) uIu/ml 01/24/22 01/24/22 01/24/22 Range/Units 20:33 17:30 12:21 WBC (4.8-10.8) K/ul RBC (4.63-6.08) M/uL Hgb (14.0-18.0) g/dl Hct (40.1-51.0) % MCV (80.0-100.0) fL MCH (25.0-34.0) pg MCHC (32.0-36.0) g/dL RDW Std Deviation (36.4-46.3) fL RDW Coeff of Alda (11.5-14.5) % Plt Count (130-400) K/uL MPV (9.4-12.4) fL Immature Gran % (Auto) % Neut % (Auto) % Lymph % (Auto) % [place] % (Auto) % Eos % (Auto) % Baso % (Auto) % Neut # (Auto) (1.4-6.5) K/uL Lymph # (Auto) (1.2-3.4) K/uL [place] # (Auto) (0.24-0.82) K/uL Eos # (Auto) (0-0.50) K/uL Baso # (Auto) (0-0.2) K/uL Immature Gran # (Auto) (0.00-0.02) K/uL Sodium (136-145) mmol/L Potassium (3.5-5.1) mmol/L Chloride (98-107) mmol/L Carbon Dioxide (21-32) mmol/L Anion Gap (3-11) BUN (6-23) mg/dl Creatinine (0.6-1.4) mg/dl Est Cr Clr Drug Dosing ml/min Est GFR ( Amer) ml/min Est GFR (Non-Af Amer) ml/min BUN/Creatinine Ratio (10-20) Glucose (70-99(Fasting)) mg/dl POC Glucose 314 H* 166 H 167 H (70-99) mg/dl Calcium (8.5-10.1) mg/dl Magnesium (1.7-2.4) mg/dl Iron (35-175) mcg/dl TIBC (250-450) mcg/dl Unsaturated IBC (155-355) mcg/dl Transferrin % Sat (20-50) % Ferritin (8-388) ng/ml Total Bilirubin (0.2-1.0) mg/dl Direct Bilirubin (0-0.2) mg/dl AST (13-39) U/L ALT (7-52) U/L Alkaline Phosphatase (34-104) U/L Total Creatine Kinase (30-223) U/L Total Protein (6.0-8.3) gm/dl Albumin (3.4-5.0) gm/dl Globulin (2.5-4.0) gm/dl Albumin/Globulin Ratio (0.9-2) Vitamin B12 (180-914) pg/ml 25-OH Vitamin D Total (30-100) ng/ml TSH (0.300-4.500) uIu/ml 01/24/22 01/24/22 01/24/22 Range/Units 08:57 08:57 08:57 WBC (4.8-10.8) K/ul RBC (4.63-6.08) M/uL Hgb (14.0-18.0) g/dl Hct (40.1-51.0) % MCV (80.0-100.0) fL MCH (25.0-34.0) pg MCHC (32.0-36.0) g/dL RDW Std Deviation (36.4-46.3) fL RDW Coeff of Alda (11.5-14.5) % Plt Count (130-400) K/uL MPV (9.4-12.4) fL Immature Gran % (Auto) % Neut % (Auto) % Lymph % (Auto) % [place] % (Auto) % Eos % (Auto) % Baso % (Auto) % Neut # (Auto) (1.4-6.5) K/uL Lymph # (Auto) (1.2-3.4) K/uL [place] # (Auto) (0.24-0.82) K/uL Eos # (Auto) (0-0.50) K/uL Baso # (Auto) (0-0.2) K/uL Immature Gran # (Auto) (0.00-0.02) K/uL Sodium 131 L (136-145) mmol/L Potassium 3.6 D (3.5-5.1) mmol/L Chloride 97 L (98-107) mmol/L Carbon Dioxide 26 (21-32) mmol/L Anion Gap 8 (3-11) BUN 28 H (6-23) mg/dl Creatinine 1.63 H D (0.6-1.4) mg/dl Est Cr Clr Drug Dosing 66.0 ml/min Est GFR ( Amer) 55.3 ml/min Est GFR (Non-Af Amer) 47.7 ml/min BUN/Creatinine Ratio 17.2 (10-20) Glucose 113 H (70-99(Fasting)) mg/dl POC Glucose (70-99) mg/dl Calcium 8.9 (8.5-10.1) mg/dl Magnesium 2.1 (1.7-2.4) mg/dl Iron 27 L (35-175) mcg/dl TIBC 228 L (250-450) mcg/dl Unsaturated IBC 201 (155-355) mcg/dl Transferrin % Sat 12 L (20-50) % Ferritin 271.9 (8-388) ng/ml Total Bilirubin 0.8 D (0.2-1.0) mg/dl Direct Bilirubin (0-0.2) mg/dl AST 28 (13-39) U/L ALT 31 (7-52) U/L Alkaline Phosphatase 67 (34-104) U/L Total Creatine Kinase (30-223) U/L Total Protein 6.6 (6.0-8.3) gm/dl Albumin 3.7 (3.4-5.0) gm/dl Globulin 2.9 (2.5-4.0) gm/dl Albumin/Globulin Ratio 1.3 (0.9-2) Vitamin B12 910 (180-914) pg/ml 25-OH Vitamin D Total (30-100) ng/ml TSH (0.300-4.500) uIu/ml 01/24/22 01/24/22 01/24/22 Range/Units 08:57 08:57 08:20 WBC 9.38 (4.8-10.8) K/ul RBC 4.84 (4.63-6.08) M/uL Hgb 12.9 L (14.0-18.0) g/dl Hct 37.5 L (40.1-51.0) % MCV 77.5 L (80.0-100.0) fL MCH 26.7 (25.0-34.0) pg MCHC 34.4 (32.0-36.0) g/dL RDW Std Deviation 38.5 (36.4-46.3) fL RDW Coeff of Alda 13.9 (11.5-14.5) % Plt Count 520 H (130-400) K/uL MPV 8.7 L (9.4-12.4) fL Immature Gran % (Auto) 0.3 % Neut % (Auto) 63.3 % Lymph % (Auto) 26.3 % [place] % (Auto) 8.0 % Eos % (Auto) 1.7 % Baso % (Auto) 0.4 % Neut # (Auto) 5.93 (1.4-6.5) K/uL Lymph # (Auto) 2.47 (1.2-3.4) K/uL [place] # (Auto) 0.75 (0.24-0.82) K/uL Eos # (Auto) 0.16 (0-0.50) K/uL Baso # (Auto) 0.04 (0-0.2) K/uL Immature Gran # (Auto) 0.03 H (0.00-0.02) K/uL Sodium (136-145) mmol/L Potassium (3.5-5.1) mmol/L Chloride (98-107) mmol/L Carbon Dioxide (21-32) mmol/L Anion Gap (3-11) BUN (6-23) mg/dl Creatinine (0.6-1.4) mg/dl Est Cr Clr Drug Dosing ml/min Est GFR ( Amer) ml/min Est GFR (Non-Af Amer) ml/min BUN/Creatinine Ratio (10-20) Glucose (70-99(Fasting)) mg/dl POC Glucose 109 H (70-99) mg/dl Calcium (8.5-10.1) mg/dl Magnesium (1.7-2.4) mg/dl Iron (35-175) mcg/dl TIBC (250-450) mcg/dl Unsaturated IBC (155-355) mcg/dl Transferrin % Sat (20-50) % Ferritin (8-388) ng/ml Total Bilirubin (0.2-1.0) mg/dl Direct Bilirubin (0-0.2) mg/dl AST (13-39) U/L ALT (7-52) U/L Alkaline Phosphatase (34-104) U/L Total Creatine Kinase (30-223) U/L Total Protein (6.0-8.3) gm/dl Albumin (3.4-5.0) gm/dl Globulin (2.5-4.0) gm/dl Albumin/Globulin Ratio (0.9-2) Vitamin B12 (180-914) pg/ml 25-OH Vitamin D Total 14.9 L (30-100) ng/ml TSH (0.300-4.500) uIu/ml PG Care Time/CCT Total # of Minutes Spent Total Time Spent with Patient: Total time spent is greater than 50% in coordination of care (as documented) at patient's floor/unit and/or counseling patient: Coding Level of Care Code 78744 Subseq Hosp Care Lvl 3 Diagnoses Abdominal pain, epigastric R10.13 Coffee ground emesis K92.0 Nausea and vomiting R11.2 ALTHEA (acute kidney injury) N17.9 Hypoglycemia E16.2 Hypertension I10 Hyperlipidemia E78.5 GERD (gastroesophageal reflux disease) K21.9 Diabetes mellitus, type 2 E11.9 Status post right knee replacement Z96.651
[2022-01-25] MEDS: SUCRALFATE 1 GM/10 ML UDC PO SCH ×4 (09:13→20:43)
[2022-01-25] MEDS: amLODIPine BESYLATE 5 MG TAB PO SCH (09:16)
[2022-01-25] MEDS: CHOLECALCIFEROL 5,000 UNITS 125 MCG TAB PO SCH (09:17)
[2022-01-25] MEDS: GABAPENTIN 600 MG TAB PO SCH ×2 (09:17→20:45)
[2022-01-25] MEDS: ASPIRIN 81 MG ECTAB PO SCH ×2 (09:17→20:42)
[2022-01-25] MEDS: DICLOFENAC SOD 1% GEL 100 GM TUBE EXT SCH ×2 (09:18→20:43)
[2022-01-25] MEDS: INSULIN ASPART PER UNIT SC SCH ×4 (09:23→20:46)
[2022-01-25] MEDS: LANTUS PER UNIT CHARGE SQ SCH ×2 (09:24→20:45)
[2022-01-25] MEDS: PANTOprazole 40 MG in SYRINGE 0 ML IV SCH ×2 (09:44→20:43)
[2022-01-25] MEDS ORDERED: GI COCKTAIL ED USE PO ONE (12:07)
[2022-01-25] MEDS ORDERED: SODIUM CHLORIDE 0.9% 500 ML IV SCH (12:15)
[2022-01-25] MEDS: FAMOTIDINE 10 MG TABLET PO SCH ×2 (13:23→20:44)
[2022-01-25] MEDS: ALUMINUM/MAGNESIUM SUSP 72 ML, LIDOCAINE VISCOUS 2% SOLN 24 ML, BARCODE IDENTIFIER 1 EACH PO PRN ×2 (13:24→19:28)
--- NOTE | 2022-01-25 14:57 | Gastroenterology Progress Note ---
Date of Service January 25, 2022 Assessment & Plan (1) Abdominal pain, epigastric: (2) Coffee ground emesis: Plan: Hemodynamically stable Continue Pantoprazole 40 mg IV BID Continue Carafate 1 g PO QID AC and HS for 10 days total Check H. pylori stool Ag, if positive, will need treatment. Avoid NSAID's, but OK to use Tylenol for pain control. Admission and Anticipated Discharge Date Admission Date: January 24, 2022 Subjective Feeling slightly improved today. Still with, "alot of belching." Mild mid- epigastric pain rated 3/10 in intensity, non-radiating without alleviating and exacerbating factors. No hematemesis, melena, hematochezia or other complaints. He has been tolerating PO intake. He has no further complaints. Review of Systems Review of Systems: All systems reviewed & are unremarkable except as noted in Subjective Physical Exam Constitutional: WD/WN, vitals as above Respiratory: normal respiratory effort, lungs clear to auscultation Cardiovascular: RRR, no murmur, no edema Gastrointestinal (Abdomen): Inspection/Auscultation: abdomen normal to i nspection and normal bowel sounds; abdomen not distended Percussion/Palpation: abdomen soft; abdomen nontender Psychiatric: A+Ox3, euthymic affect Results & Data Results & Data ([facility]) Vital Signs (Past 12 Hours) Vital Signs Temp Pulse Resp BP Pulse Ox O2 Del Method 01/25/22 07:30 Room Air 01/25/22 09:15 69 135/84 01/25/22 07:36 36.6 C 67 18 153/86 H 100 Room Air PG Care Time/CCT Total # of Minutes Spent Total Time Spent with Patient: Total time spent is greater than 50% in coordination of care (as documented) at patient's floor/unit and/or counseling patient: Coding Level of Care Code 89336 Subseq Hosp Care Lvl 3 Diagnoses Abdominal pain, epigastric R10.13 Coffee ground emesis K92.0
[2022-01-25] MEDS ORDERED: PROMETHAZINE HCL 12.5 MG in SODIUM CHLORIDE 0.9% 50 ML IV STA (21:30)
[2022-01-25] MEDS: ACETAMINOPHEN 500 MG TAB PO PRN (22:14)
[2022-01-26 08:09] LABS: Hematocrit (blood only) 35.6 % (40.1-51.0); Mean Corpuscular Hemoglobin 26.6 pg (25.0-34.0); Mean Corpuscular Hgb Conc 33.7 g/dL (32.0-36.0); Mean Corpuscular Volume 78.9 fL (80.0-100.0); Mean Platelet Volume 8.9 fL (9.4-12.4); Platelet Count 435 K/uL (130-400); RDW Standard Deviation 39.7 fL (36.4-46.3); Red Blood Count 4.51 M/uL (4.63-6.08); White Blood Count 7.26 K/ul (4.8-10.8)
--- NOTE | 2022-01-26 08:21 | Hospitalist Progress Note ---
Date of Service January 26, 2022 Assessment & Plan (1) Abdominal pain, epigastric: Plan: Patient with recent Right Total knee replacement with Dr Cifuentes on 01/06 and discharged back to care home instead of rehab as reportedly doing too well for rehab. Had not been working with knee/therapy much and using wheelchair at times to get down to get medications from [facility] and developed n/v/near syncope. Noted ER on 01/22 for reported coffee ground emesis/ALTHEA, tx w/ IVF and sent back to care home. BUN/Cr 39/1.56 at that time. Remained on ibuprofen at that time, not on medication list during ER visit CTAP/CT chest on admit without acute process, possible chronic bronchiolitis? SUSPECTED UGIB/PUD given chronic dyspepsia reported/PPI use with Carafate after multiple EGD in past. Denied any known gastric ulcers/active bleeding. Possible ?h. 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 Gabapentin reduced to 600mg BID (would rec reduction in dose from 1400mg BID -- asked CM to confirm, check on Wednesday) IVF provided, PO K replacement --> Cr 1.2. K 4.3. Additional 500cc @ 80cc/hr provided but much improved from day prior GI on consult -- no inpatient scope planned given stability of hgb but will plan for outpatient follow up -- Did message Dr Gordon for ?possible underlying H. Pylori -- rec stool antigen testing, already had been ordered Denies any further lightheadedness/dizziness but does note he increased belching and added Pepcid BID, viscous lidocaine x 1 to see if any effectiveness (reported given Dilaudid at [facility] in past). H pylori antigen testing ordered Continues on Protonix IV BID for another 24 hours, Carafate QID fecal occult ordered, (of note, was to be on PO iron BID, did get Venofer x1 IV on 01/24 -- suspect elevated BSG from sucrose) Hgb remains stable at 12.3 with copious IVF replacement for ALTHEA. Antiemetics prn Monitor labs/symptoms in AM 01/26 Episode of emesis x 2 last evening reported Hgb remains stable @ 12 w/ IVF (2) Coffee ground emesis: Plan: no further reported, tx as above continue PPI BID, carafate at d/c planned, outpt GI f/u (3) Nausea and vomiting: Plan: antiemetics prn, tx as outlined (4) ALTHEA (acute kidney injury): Plan: acute kidney injury on admit w/ Cr 2.52 suspected multifactorial in setting of n/v/dehydration, NSAID use w/ ASA for DVT prophylaxis for recent R knee surgery as well as medication induced as he is on HCTZ 25mg, lisinopril 40mg daily IVF as above, K replacement Cr almost back to baseline, 1.2. Improved PO intake --> 500cc ordered for today then stop Continue to hold HCTZ/lisinopril for now, consider resuming lisinopril if needed for BP but may consider reducing d/c HCTZ to prevent worsening kidney damage, and hypoK on admit likely from combination Continue holding metformin, SSI ordered CK was 448--> 320, statin held. TSH wnl. UA unremarkable Avoiding nephrotoxins, renal dose meds as above BMP in AM (5) Hypoglycemia: Plan: 45 on admit -- likely 2nd to n/v/althea/insulin use and reduced PO intake. BSG 113 on repeat NO FURTHER HYPOGLYCEMIA--> did have elevation last night likely from venofer infusion last evening Glargine 10u BID ordered on admit - PO intake reportedly improved and elevated BSGs, increase to 15u BID Monitor w/ ISS as needed, adjustments as needed (6) Hypertension: Plan: Blood pressure appropriate 135/85 Continues on amlodipine 10mg daily Holding HCTZ/lisinopril as above and prior hydration. Monitor, consider reduction in BP medications pending readings off of these to prevent worsening dehydration/kidney damage (7) Hyperlipidemia: Plan: Chronic. On medications Continued Atorvastatin 40mg po daily on admit, placed on hold given ALTHEA/CK elevation on admit. IVF hydration provided, CK normalized on repeat Resume statin (8) GERD (gastroesophageal reflux disease): Plan: Chronic, reported hasn't had issues since around 2017 Protonix IV daily on admit, increased to BID as above, added carafate No inpatient scope planned, GI on consult as above but no official note but was discussed with Dr Gordon this morning H pylori stool testing -GI cocktail as needed -- ordered x 1 now -Zofran as needed (9) Diabetes mellitus, type 2: Plan: A1c 7.5 as above under hypoglycemia (10) Status post right knee replacement: Plan: Appears to be healing well. Pain is controlled Consulted orthopedics given patient reported discomfort. Does not appear infected but does have some minimal swelling/effusion. Patient reported not having seen Dr Cifuentes in f/u and req consultation. Placed PT consulted while inpatient -- he has not been getting much therapy at care home at all he reports Plan continued inpatient stay PPI IV BID, carafate, GI on consult Check H pylori stool antigen continue holding diuretics, IVF for ALTHEA Avoid NSAIDs at d/c PT consulted-- Pending therapy evals, consider rehab at d/c short term given above but otherwise will plan for d/c back to care home when stable, possible in next 24 hours Ortho consulted per pt request for Dr Cifuentes for his R knee -- defer imaging until eval, does not appear infected Admission and Anticipated Discharge Date Admission Date: January 24, 2022 Subjective eval this morning episode of emesis with medications last night upset about full liquid diet given no abdominal pain reported but does have some epigastric tenderness but discussed needed to inquire about such given initial complaints on admit he is wanting to go home. discussed ambulation, stool sample and possible d/c later today resumed lisinopril at lower dose would AVOID ibuprofen at the care home worked w/ PT yesterday, seen by ortho PA this morning. No changes except tylenol and icing. Asked guards to ambulate in the room, if +BM and feeling ok can f/u on stool after d/c to start abx but would continue PPI BID and carafate at d/c Resumed lisinopril this morning, 20mg dose and can titrate up as able/cr stable on repeat labs if d/c back to care home. would hold HCTZ temporarily and slowly resume. No fever/chills, chest pain, shortness of breath Results & Data Results & Data ([facility]) Vital Signs (Past 12 Hours) Vital Signs Temp Pulse Resp BP Pulse Ox O2 Del Method 01/26/22 07:44 37.4 C 64 16 165/83 H 99 Room Air 01/25/22 20:42 Room Air, CPAP 01/25/22 20:27 37.2 C 70 18 137/71 99 Room Air Laboratory Results 01/26/22 01/26/22 01/26/22 Range/Units 07:56 07:31 07:31 WBC 7.26 (4.8-10.8) K/ul RBC 4.51 L (4.63-6.08) M/uL Hgb 12.0 L (14.0-18.0) g/dl Hct 35.6 L (40.1-51.0) % MCV 78.9 L (80.0-100.0) fL MCH 26.6 (25.0-34.0) pg MCHC 33.7 (32.0-36.0) g/dL RDW Std Deviation 39.7 (36.4-46.3) fL RDW Coeff of Alda 14.0 (11.5-14.5) % Plt Count 435 H (130-400) K/uL MPV 8.9 L (9.4-12.4) fL Sodium Pending Potassium Pending Chloride Pending Carbon Dioxide Pending Anion Gap Pending BUN Pending Creatinine Pending Est Cr Clr Drug Dosing Pending Est GFR ( Amer) Pending Est GFR (Non-Af Amer) Pending BUN/Creatinine Ratio Pending Glucose Pending POC Glucose 156 H (70-99) mg/dl Calcium Pending Magnesium Pending 01/25/22 01/25/22 01/25/22 Range/Units 20:26 17:09 12:16 WBC (4.8-10.8) K/ul RBC (4.63-6.08) M/uL Hgb (14.0-18.0) g/dl Hct (40.1-51.0) % MCV (80.0-100.0) fL MCH (25.0-34.0) pg MCHC (32.0-36.0) g/dL RDW Std Deviation (36.4-46.3) fL RDW Coeff of Alda (11.5-14.5) % Plt Count (130-400) K/uL MPV (9.4-12.4) fL Sodium Potassium Chloride Carbon Dioxide Anion Gap BUN Creatinine Est Cr Clr Drug Dosing Est GFR ( Amer) Est GFR (Non-Af Amer) BUN/Creatinine Ratio Glucose POC Glucose 231 H 285 H 187 H (70-99) mg/dl Calcium Magnesium 01/25/22 Range/Units 08:22 WBC (4.8-10.8) K/ul RBC (4.63-6.08) M/uL Hgb (14.0-18.0) g/dl Hct (40.1-51.0) % MCV (80.0-100.0) fL MCH (25.0-34.0) pg MCHC (32.0-36.0) g/dL RDW Std Deviation (36.4-46.3) fL RDW Coeff of Alda (11.5-14.5) % Plt Count (130-400) K/uL MPV (9.4-12.4) fL Sodium Potassium Chloride Carbon Dioxide Anion Gap BUN Creatinine Est Cr Clr Drug Dosing Est GFR ( Amer) Est GFR (Non-Af Amer) BUN/Creatinine Ratio Glucose POC Glucose 181 H (70-99) mg/dl Calcium Magnesium PG Care Time/CCT Total # of Minutes Spent Total Time Spent with Patient: Total time spent is greater than 50% in coordination of care (as documented) at patient's floor/unit and/or counseling patient: Coding Diagnoses Abdominal pain, epigastric R10.13 Coffee ground emesis K92.0 Nausea and vomiting R11.2 ALTHEA (acute kidney injury) N17.9 Hypoglycemia E16.2 Hypertension I10 Hyperlipidemia E78.5 GERD (gastroesophageal reflux disease) K21.9 Diabetes mellitus, type 2 E11.9 Status post right knee replacement Z96.651
[2022-01-26 08:28] LABS: BUN Creatinine Ratio 14.3 (10-20); Calcium 9.2 mg/dl (8.5-10.1); Creatinine Clr Calc Pharmacy 109.9 ml/min; Est GFR (African American) 102.3 ml/min; Est GFR (Non-African American) 88.3 ml/min; Magnesium 1.7 mg/dl (1.7-2.4); Potassium 4.4 mmol/L (3.5-5.1)
[2022-01-26] MEDS ORDERED: lisinopril 20 MG TAB PO SCH (09:15)
[2022-01-26] MEDS: GABAPENTIN 600 MG TAB PO SCH (09:54)
[2022-01-26] MEDS: PANTOprazole 40 MG in SYRINGE 0 ML IV SCH (09:54)
[2022-01-26] MEDS: SUCRALFATE 1 GM/10 ML UDC PO SCH ×2 (09:54→13:07)
[2022-01-26] MEDS: amLODIPine BESYLATE 5 MG TAB PO SCH (09:54)
[2022-01-26] MEDS: ASPIRIN 81 MG ECTAB PO SCH (09:54)
[2022-01-26] MEDS: FAMOTIDINE 10 MG TABLET PO SCH (09:54)
[2022-01-26] MEDS: CHOLECALCIFEROL 5,000 UNITS 125 MCG TAB PO SCH (09:54)
[2022-01-26] MEDS: INSULIN ASPART PER UNIT SC SCH ×2 (09:55→13:06)
[2022-01-26] MEDS: LANTUS PER UNIT CHARGE SQ SCH (09:55)
[2022-01-26] MEDS: DICLOFENAC SOD 1% GEL 100 GM TUBE EXT SCH (09:55)
[2022-01-26] MEDS ORDERED: MAGNESIUM SULFATE / D5W 1 GM/100 ML BAG IV ONE (10:06)
--- NOTE | 2022-01-26 10:10 | Orthopedic Consultation ---
Date of Consultation January 26, 2022 Assessment & Plan (1) Status post right knee replacement: Pt is 2 1/2 weeks s/p RTKA, admitted for UGIB/PUD being managed by medicine -Patient is doing well with his knee -WBAT with walker -Continue PT -Ice/elevate with pillows blankets under the ankle -ASA 81mg BID for DVT prophylaxis -Leave steri strips in place, they will fall off on their own. Pt okay to shower -Pain control - recommend ES tylenol and icing. Patient had been controlling his pain with tylenol and ibuprofen at the retirement and did not require narcotics. Would avoid narcotic use due to pt h/o drug abuse -Pt already has outpatient follow up with Dr Cifuentes scheduled History of Present Illness Reason for Consultation: s/p right total knee arthroplasty Attending Physician: Melisa Celestin MD History of Present Illness Pt is 2 1/2 weeks status post RTKA with Dr Cifuentes. He was seen last week by myself in our office for his two week post op appointment and was doing well with regards to his knees. He reported vomiting at the time I saw him but vitals normal with no reported fevers or chills. He was admitted yesterday for EGIB/PUD, currently being managed by medicine. He says since he saw me in the office his vomiting got worse and he started vomiting blood. He says they have hin a "cocktail" and he does this its helping. He said he had breakfast and so far he has not had an N/V. In regards to his knee, he says that his knee feels stiff this morning. He had PT at the retirement. He has been doing his PT exercises on his own and was seen by PT yesterday. His pain is controlled. He is overall doing well with his knee. He says he has some tingling in his toes because his gabapentin dose was changed. He denies any calf pain. Allergies Allergy/AdvReac Type Severity Reaction Status Date / Time morphine Allergy Unknown [facility] Verified 01/24/22 00:14 TWP LIST tomato Allergy Unknown [facility] Verified 01/24/22 07:29 TWP LIST Home Medications Medication Instructions Recorded Confirmed Type atorvastatin 40 mg tablet 40 mg PO DAILY 01/08/19 01/24/22 History gabapentin 600 mg tablet 600 mg PO BID 01/08/19 01/24/22 History insulin human U-100 NPH-regulr 30 unit subcut BID 01/08/19 01/24/22 History 70-30 mix 100 unit/mL subcutaneous susp (Humulin 70/30 U-100 Insulin) insulin regular human 100 unit/mL 1 sliding scale dose subcut UD 01/08/19 01/24/22 History injection solution (Humulin R Regular U-100 Insulin) amlodipine 10 mg tablet 10 mg PO DAILY 01/01/22 01/24/22 History gabapentin 800 mg tablet 800 mg PO BID 01/01/22 01/24/22 History hydrochlorothiazide 25 mg tablet 25 mg PO BID 01/01/22 01/24/22 History lisinopril 40 mg tablet 40 mg PO DAILY 01/01/22 01/24/22 History metformin 1,000 mg tablet 1,000 mg PO BID 01/01/22 01/24/22 History acetaminophen 500 mg tablet 1,000 mg PO QID PRN as directed 01/24/22 01/24/22 History ascorbic acid (vitamin C) 500 mg 500 mg PO BIDM 01/24/22 01/24/22 History chewable tablet (Vitamin C) aspirin 81 mg tablet,delayed 81 mg PO BID 01/24/22 01/24/22 History release diclofenac sodium 1 % topical gel 1 ea topical BID 01/24/22 01/24/22 History docusate sodium 100 mg capsule 100 mg PO BID 01/24/22 01/24/22 History ferrous gluconate 324 mg (38 mg 324 mg PO BIDM 01/24/22 01/24/22 History iron) tablet lansoprazole 30 mg capsule,delayed 30 mg PO BID 01/24/22 01/24/22 History release ondansetron HCl 4 mg tablet 4 mg PO TID PRN as directed 01/24/22 01/24/22 History promethazine 25 mg/mL injection 25 mg IM BID PRN as directed 01/24/22 01/24/22 History solution Patient History Medical History Antisocial personality disorder Diabetes mellitus, type 2 IDDM GERD (gastroesophageal reflux disease) History of COVID-19 03/11/2020 Hyperlipidemia Hypertension 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 Osteoarthritis of right knee Sleep apnea Surgical History H/O fasciotomy LEFT LEG +SKIN GRAFT Social History Smoking Status: Never smoker Hx Alcohol Use: No Hx Substance Use: No Preferred Language: Mongolian 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 Pt has full ROM of ankle and all 5 digits. Pt has 5/5 strength with resisted DF/PF. Patient exhibits good quad strength and is able to do multiple quad sets. Calf supple and non tender. Mild knee swelling noted. ROM -3 to 100 degrees, and i am able to passive flex im about 5-10 degrees more. Patient has some tenderness behind his knee but no calf tenderness or palpable chords felt. NVI with sensation to light touch distally and good distal pulses present. Results & Data ([facility]) Vital Signs (Past 12 Hours) Vital Signs Temp Pulse Resp BP Pulse Ox O2 Del Method 01/26/22 07:44 37.4 C 64 16 165/83 H 99 Room Air
--- NOTE | 2022-01-26 11:14 | Discharge Summary ---
Date of Service January 26, 2022 Admission HPI Per Admitting Provider Roland Freeman is a 51yo male inmate at [facility] presenting with nausea, vomiting and near syncope. Patient has been having several days of abdominal pain, nausea and vomiting. He was seen in the ER on 01/22 and found to have elevation of Cr. He had a negative CT of the abdomen. He was administered IV Zofran, Protonix and 2L of IVF and returned to [facility] with diagnosis of gastritis. He reports his nausea and vomiting has persisted. Today he had an episode of lightheadedness and dizziness while standing in line to get his medications. Also nearly passed out in the cafeteria. He reports ongoing nausea and significant reflux symtpoms. In the ER he was found to be hypoglycemic with BSG of 45. He was administered IV Dextrose with improvement Admission Exam Per Admitting Provider General: patient resting comfortably, NAD, non-toxic in appearance, AA&O x 4 Skin: warm, dry, intact, no rashes or lesions HEENT: NC/AT, PERRL, EOMI, anicteric sclera, conjunctiva without injection, external ear normal to inspection and nontender, nares patent, moist mucus membranes, dentition intact, no oropharyngeal lesions, neck supple, trachea midline, no LAD, no thyromegaly, no JVD Heart: +S1/S2, regular, no m/r/g Lungs: equal air entry bilaterally, no rales/rhonchi/wheezes Abd: +BS, soft, ND, mild epigastric tenderness to palpation, no rebound/guarding/peritonitis, no masses/organomegaly/ascites Ext: warm, 2+ pulses in UE/LE bilaterally, no clubbing/cyanosis or edema, right knee surgical site well approximated with no bleeding, erythema or dehiscence Neuro: nonfocal, patient AA&O x 4, speech intact, no facial droop, moving all extremities on command with equal strength 5/5 Principal Diagnosis Acute Kidney Injury, dehydration, NSAID induced Gastritis vs PUD Discharge Exam General: male sitting up in bed, 2 guards at bedside, NAD, occassional belching HEENT: head normocephalic, atraumatic, mm improved, trachea midline Resp: CTAB, no w/c,99% on RA CV: RRR, faint systolic murmur, no pitting edema GI: +BS, obese, mild epigastric tenderness to palpation, no guarding/rebound : no roberts MSK/Neuro: moves all extremities, R knee prior surgical site looks good/incision well approximated, steri strips remain in place, slight effusion R knee, no erythema/warmth, calf nontender, pulse palpable Psych: AOx3, pleasant and cooperative Skin: warm, well perfused, no obvious lesions/rashes Discharge Data Allergies Allergy/AdvReac Type Severity Reaction Status Date / Time morphine Allergy Unknown SCI MARY Verified 01/24/22 00:14 TWP LIST tomato Allergy Unknown SCI MARY Verified 01/24/22 07:29 TWP LIST Consultations 01/24/22 02:34 ED Decision to Admit Stat 01/24/22 10:04 Consult Gastroenterology Routine 01/25/22 12:12 Consult Orthopedic Surgery Routine Ordered Studies Chest X-Ray 01/23/22 22:01 SINGLE VIEW CHEST CLINICAL HISTORY: Atypical chest pain. Illness. FINDINGS: An AP, portable, upright chest radiograph is obtained. No prior studies are available for comparison at the time of dictation. The examination is degraded by portable technique and patient rotation. The cardiomediastinal silhouette is unremarkable. The lungs and pleural spaces are clear. No pneumothorax is seen. The bony thorax is grossly intact. IMPRESSION: No active disease in the chest. ACT 112: Negative or not required by law. Electronically signed by: Hunter Freitas M.D. 01/23/2022 11:46 PM Abdomen/Pelvis CT 01/23/22 22:31 CT chest diagnostic wo con, CT abd pelvis wo con CT DOSE: 1354.01 mGy.cm HISTORY: severe back to chest pain w/ R leg feeling cold TECHNIQUE: Multiaxial CT images of the chest, abdomen, and pelvis were performed without contrast. A dose lowering technique was utilized adhering to the principles of ALARA. COMPARISON: Abdomen and pelvis CT 01/22/2022. FINDINGS: Chest CT: Mild anterior wedging at T12 which is likely chronic. No acute fractures within the chest. The central airways are patent. No focal lung consolidations. No evidence for pulmonary edema. Multiple tiny centrilobular nodules seen within the right upper lobe. This may be due to a chronic bronchiolitis. Normal thyroid gland. No mediastinal or hilar lymphadenopathy. The heart is normal in size. No pleural or pericardial effusions. Normal esophagus. Normal caliber thoracic aorta. Mild to moderate calcified plaque within the coronary arteries. Abdomen/pelvis CT: No pneumoperitoneum. No pneumatosis. No fractures identified within the visualized osseous structures. The unenhanced liver, gallbladder, spleen, adrenal glands are unremarkable. The pancreas remains atrophic. Tiny fat-containing umbilical hernia. Normal bladder. The prostate gland remains mildly enlarged. No bowel wall thickening or obstruction. Normal appendix. Normal caliber abdominal aorta. No retroperitoneal or pelvic lymphadenopathy. IMPRESSION: 1. No acute abnormality within the chest, abdomen, or pelvis. 2. A few tiny centrilobular nodules within the right upper lobe. This may represent a mild chronic bronchiolitis. ACT 112: Negative or not required by law. Electronically signed by: Alirio Cason M.D. 01/24/2022 7:[address] 01/23/22 22:31 CT chest diagnostic wo con, CT abd pelvis wo con CT DOSE: 1354.01 mGy.cm HISTORY: severe back to chest pain w/ R leg feeling cold TECHNIQUE: Multiaxial CT images of the chest, abdomen, and pelvis were performed without contrast. A dose lowering technique was utilized adhering to the principles of ALARA. COMPARISON: Abdomen and pelvis CT 01/22/2022. FINDINGS: Chest CT: Mild anterior wedging at T12 which is likely chronic. No acute fractures within the chest. The central airways are patent. No focal lung consolidations. No evidence for pulmonary edema. Multiple tiny centrilobular nodules seen within the right upper lobe. This may be due to a chronic bronchiolitis. Normal thyroid gland. No mediastinal or hilar lymphadenopathy. The heart is normal in size. No pleural or pericardial effusions. Normal esophagus. Normal caliber thoracic aorta. Mild to moderate calcified plaque within the coronary arteries. Abdomen/pelvis CT: No pneumoperitoneum. No pneumatosis. No fractures identified within the visualized osseous structures. The unenhanced liver, gallbladder, spleen, adrenal glands are unremarkable. The pancreas remains atrophic. Tiny fat-containing umbilical hernia. Normal bladder. The prostate gland remains mildly enlarged. No bowel wall thickening or obstruction. Normal appendix. Normal caliber abdominal aorta. No retroperitoneal or pelvic lymphadenopathy. IMPRESSION: 1. No acute abnormality within the chest, abdomen, or pelvis. 2. A few tiny centrilobular nodules within the right upper lobe. This may represent a mild chronic bronchiolitis. ACT 112: Negative or not required by law. Electronically signed by: Alirio Cason M.D. 01/24/2022 7:36 AM Hospital Course (1) Abdominal pain, epigastric: Patient with recent Right Total knee replacement with Dr Cifuentes on 01/06 and discharged back to [facility] instead of rehab as reportedly doing too well for rehab. Had not been working with knee/therapy much and using wheelchair at times to get down to get medications from [facility] and developed n/v/near syncope. Noted ER on 01/22 for reported coffee ground emesis/ALTHEA, tx w/ IVF and sent back to [facility]. BUN/Cr 39/1.56 at that time. Remained on ibuprofen at that time, not on medication list during ER visit CTAP/CT chest on admit without acute process, possible chronic bronchiolitis? SUSPECTED UGIB/PUD given chronic dyspepsia reported/PPI use with Carafate after multiple EGD in past. Denied any known gastric ulcers/active bleeding. Possible ?h. 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 Pylori -- rec stool antigen testing, already had been ordered --> no further BM for collection but patient wanting to leave hospital Plan at d/c: AVOID ANY FURTHER NSAIDS. Use Tylenol as needed for pain control (has only been getting tylenol for past 24 hours and reported no pain control but attempts made to get "IV dilaudid" noted) Sent rx for Protonix BID, Pepcid BID and Carafate QID (for 10 day course carafate) Check H. pylori stool testing, tx if + (discussed with Dr Laureano at [facility]) GI f/u for EGD (2) Coffee ground emesis: no further reported, tx as above continue PPI BID, carafate at d/c planned, outpt GI f/u no further coffee ground emesis (3) Nausea and vomiting: antiemetics prn, tx as outlined (4) ALTHEA (acute kidney injury): acute kidney injury on admit w/ Cr 2.52 suspected multifactorial in setting of n/v/dehydration, NSAID use w/ ASA for DVT prophylaxis for recent R knee surgery as well as medication induced as he is on HCTZ 25mg, lisinopril 40mg daily, metformin BID IVF as above, K replacement, diuretics and metformin Cr back to 0.98 on AM labs prior to d/c, resumed lisinopril but at reduced dose 20mg daily Discussed with Dr Laureano about increasing to 30-40mg as needed pending repeat blood pressures. Would continue to hold HCTZ at discharge unless needed but if resumed would rec repeating labs after to ensure electrolytes/kidney function stable to prevent hypokalemia/ALTHEA CK was 448--> 320, statin held. TSH wnl. UA unremarkable --> resumed statin at d/c (5) Hypoglycemia: 45 on admit -- likely 2nd to n/v/althea/insulin use and reduced PO intake. BSG 113 on repeat NO FURTHER HYPOGLYCEMIA--> did have elevation likely from venofer infusion day prior Glargine 10u BID ordered on admit - PO intake reportedly improved and elevated BSGs, increase to Resumed home meds at d/c but rec'd close monitoring (6) Hypertension: Blood pressure appropriate , slight elevation to 165/83 this morning and lisinopril resumed at 20mg daily. HCTZ on hold at d/c as above, consider increasing lisinopril if needed but would hold HCTZ to prevent hypokalemia/ALTHEA Discussion w/ Dr Laureano regarding when/what to resume/labs (7) Hyperlipidemia: Chronic. On medications Continued Atorvastatin 40mg po daily on admit, placed on hold given ALTHEA/CK elevation on admit. IVF hydration provided, CK normalized on repeat Resumed statin (8) GERD (gastroesophageal reflux disease): Chronic, reported hasn't had issues since around 2017 Protonix IV daily on admit, increased to BID as above, added carafate No inpatient scope planned, GI on consult as above H pylori stool testing but was not collected Reported resolution of pain, continues with some belching Tx at discharge as outlined above and rec GI f/u and stool antigen testing/treatment if positive (9) Diabetes mellitus, type 2: A1c 7.5 home meds at d/c (10) Status post right knee replacement: Appears to be healing well. Pain is controlled Consulted orthopedics given patient reported discomfort. Does not appear infected but does have some minimal swelling/effusion. Patient reported not having seen Dr Cifuentes in f/u and req consultation. Placed Stable, continue pain control w/ tylenol, continued ambulation (reportedly wasn't doing much at the [facility]) Total Time Total Time Spent Total Time Spent (In Minutes): 60 Discharge Plan Discharge Items [facility]position[facility] Reason For Visit: VOMITING, NEAR SYNCOPE, DEHYDRATION Discharge Diagnosis: Gastritis, PUD Condition on Discharge: Good Activity: As commented below Non-emergency contact: Primary Care Provider and Grab Setter Call non-emergency contact if: you have any medication questions, your symptoms worsen and you have a fever Follow-up/Referrals: Boone Gordon DO [Physician] - Mary CAMPO [Primary Care Provider] - Diet: Carb Consistent or DM2 and Heart Healthy Addtl Attending Provider Instructions: You have been hospitalized for nausea/vomiting/kidney injury. This is likely due to dehydration which is in combination due to lack of oral intake, blood pressure medications, and ibuprofen use for pain control. You also likely have underlying peptic ulcer disease but also possible to have a bacterial infection called H. pylori. It is recommended if you do not have BM to send for a stool sample prior to discharge that they send this out. If it is positive they will need to add an antibiotic like amoxicillin. Your blood counts have remained stable and GI was consulted but due to stability they have recommended you continue Protonix twice a day with Carafate four times a day at discharge and have outpatient follow up. Your kidney function returned to normal with IV hydration. Your lisinopril was resumed but at a reduced dose to 20mg daily. Your hydrochlorothiazide has been placed on HOLD as your potassium level was low on admit and I would only resume if your blood pressure is elevated but would check your labs afterward if this is resumed to ensure kidney function stays stable. AVOID ALL IBUPROFEN, NAPROXEN, MOTRIN, ALEVE, NSAIDS as this will only make all of these things worse. You should have follow up outpatient with Dr Gordon for EGD (scope as you previously have had done). Pending Studies at Discharge: No Stand-Alone Forms: My [facility] Skilled Items Patient informed of condition?: Yes Discharge Level of Care: Other Communicable Disease: No Discharge Prognosis: Improving Lines: None Urinary Catheter: No Medications and DC Order Prescriptions: New famotidine [Acid Sexual Assault Counselor (famotidine)] 10 mg Tablet 10 mg PO BID Qty: 60 0RF sucralfate 100 mg/mL Suspension 1 g PO ACHS 10 Days Qty: 100 0RF cholecalciferol (vitamin D3) 125 mcg (5,000 unit) Tablet 5,000 unit PO QAM Qty: 30 0RF pantoprazole 40 mg tablet,delayed release (DR/EC) 40 mg PO BID 42 Days Qty: 84 0RF Continued atorvastatin 40 mg Tablet 40 mg PO DAILY gabapentin 600 mg Tablet 600 mg PO BID Rx Instructions: CRUSH MED Humulin 70/30 U-100 Insulin 100 unit/mL (70-30) Suspension 30 unit SUBCUT BID Humulin R Regular U-100 Insuln 100 unit/mL Solution 1 sliding scale dose SUBCUT UD Label Comments: PER SLIDING SCALE aspirin 81 mg Tablet,Delayed Release (Dr/Ec) 81 mg PO BID ascorbic acid (vitamin C) [Vitamin C] 500 mg Tablet,Chewable 500 mg PO BIDM docusate sodium 100 mg Capsule 100 mg PO BID ferrous gluconate 324 mg (38 mg iron) Tablet 324 mg PO BIDM ondansetron HCl 4 mg Tablet 4 mg PO TID PRN (Reason: as directed) acetaminophen 500 mg Tablet 1,000 mg PO QID PRN (Reason: as directed) promethazine 25 mg/mL Solution 25 mg IM BID PRN (Reason: as directed) diclofenac sodium 1 % Gel 1 ea TOPICAL BID amlodipine 10 mg Tablet 10 mg PO DAILY metformin 1,000 mg Tablet 1,000 mg PO BID Changed lisinopril 40 mg Tablet 20 mg PO DAILY Qty: 15 0RF Discontinued lansoprazole 30 mg Capsule,Delayed Release(Dr/Ec) 30 mg PO BID gabapentin 800 mg Tablet 800 mg PO BID hydrochlorothiazide 25 mg Tablet 25 mg PO BID Discharge Orders: Discharge Order (Routine); Ordered 01/26/22 Ordered By: Doreen Momin/Other Patient Handouts: Hypoglycemia (Low Blood Sugar), Managing Type 2 Diabetes Admission Data Admit Date/Time: 01/24/22 02:44 Attending Provider: Melisa Celestin Admit Provider: Kamille Montgomery Primary Care Provider: Mary CAMPO Other Providers: Kamille Montgomery ; Boone Gordon ; Jeffy Cifuentes Other Interventions: Discharge Summary Assessment (RN) Last Done: 01/26/22 13:18 Supervising Physician Co-Signing Physician Notes PA Supervision Note: I personally saw and examined the patient. I verified all connell points and agree with SAVI Spence with the following exceptions and/or additions: S-Pt felviji gbetter, eating, some mild abd pain, had a BM yesterday but not today. O- Vitals reviewed Gen: [AAOx3, NAD] HEENT: [anicteric sclerae, EOMI] CV: [RRR no mgr nl S1S2] Pulm: [CTAB no wcr] Abd: [+BS soft NT ND no masses or hernias] A/P-51 yo male here with N/V, likely gastritis from NSAID and ASA use. Also with ALTHEA due to dehydration from N/V, resolved Improving Avoid NSAIDs, continue carafate, PPI, H2 giuliano Coding Level of Care Code D/C DAY MANAGEMENT >30 MINS Diagnoses Abdominal pain, epigastric R10.13 Coffee ground emesis K92.0 Nausea and vomiting R11.2 ALTHEA (acute kidney injury) N17.9 Hypoglycemia E16.2 Hypertension I10 Hyperlipidemia E78.5 GERD (gastroesophageal reflux disease) K21.9 Diabetes mellitus, type 2 E11.9 Status post right knee replacement Z96.651
== END 2022-01-26 16:33 | DRG 378 ==
LOC: ED 21:25 → SUATTDRO 01-24 02:44 → 3E 01-24 02:44

== ENCOUNTER 2022-04-10 17:00 | Inpatient (IN) ==
[2022-04-10] MEDS ORDERED: FAMOTIDINE 20MG IV PUSH 20 MG/5 ML SYR IV STA (17:47)
[2022-04-10] MEDS ORDERED: METOCLOPRAMIDE HCL INJ 5 MG/ML 2 ML VIAL IV STA (17:47)
[2022-04-10] MEDS ORDERED: PANTOPRAZOLE BOLUS/DRIP 1 EACH IV STA (17:47)
[2022-04-10] MEDS ORDERED: PANTOprazole 80 MG in DEXTROSE 5% 100 ML IV ONE (17:47)
[2022-04-10] MEDS ORDERED: ACETAMINOPHEN 1,000 MG/100 ML VIAL IV STA (17:47)
[2022-04-10] MEDS ORDERED: diphenhydrAMINE 50 MG/ML VIAL IV STA ×2 (17:50→20:27)
[2022-04-10] MEDS ORDERED: SODIUM CHLORIDE 0.9% 1000ML 1,000 ML IV SCH (18:00)
[2022-04-10 18:28] LABS: Basophils # (auto) 0.03 K/uL (0-0.2); Basophils % (auto) 0.7 %; Eosinophils # (auto) 0.01 K/uL (0-0.50); Eosinophils % (auto) 0.2 %; Hematocrit (blood only) 39.3 % (42.0-52.0); Hemoglobin 13.8 g/dl (14.0-18.0); Immature Granulocytes # (auto) 0.01 K/uL (0.01-0.20); Immature Granulocytes % (auto) 0.2 %; Lymphocytes # (auto) 0.96 K/uL (1.2-3.4); Mean Corpuscular Hemoglobin 26.9 pg (25.0-34.0); Mean Corpuscular Hgb Conc 35.1 g/dL (32.0-36.0); Mean Corpuscular Volume 76.6 fL (80.0-100.0); Mean Platelet Volume 9.3 fL (9.4-12.4); Monocytes # (auto) 0.37 K/uL (0.11-0.59); Monocytes % (auto) 8.1 %; Neutrophils % (auto) 69.8 %; Platelet Count 324 K/uL (130-400); RDW Coefficient of Variation 14.1 % (11.5-14.5); RDW Standard Deviation 39.2 fL (36.4-46.3); Red Blood Count 5.13 M/uL (4.70-6.10); White Blood Count 4.58 K/ul (4.8-10.8)
[2022-04-10] MEDS: PANTOprazole 40 MG in DEXTROSE 5% 100 ML IV SCH ×2 (18:33→23:37)
[2022-04-10 18:46] LABS: Albumin Level 4.8 gm/dl (3.4-5.0); Bilirubin,Total 1.8 mg/dl (0.2-1.0); Calcium 10.5 mg/dl (8.5-10.1); Potassium 3.8 mmol/L (3.5-5.1)
[2022-04-10 18:48] LABS: Partial Thromboplastin Ratio 1.6; Partial Thromboplastin Time 44.8 Seconds (21.0-31.0); Prothrombin Time 39.9 Seconds (9.0-12.0)
[2022-04-10 18:51] LABS: Albumin Globulin Ratio 1.7 (0.9-2); BUN Creatinine Ratio 6.6 (10-20); Creatinine Clr Calc Pharmacy 89.3 ml/min; Est GFR (African American) 78.5 ml/min; Est GFR (Non-African American) 67.7 ml/min; Globulin 2.8 gm/dl (2.5-4.0); Total Protein 7.6 gm/dl (6.0-8.3)
[2022-04-10] MEDS ORDERED: OPTIRAY 350 100ml IV ONE (19:30)
--- NOTE | 2022-04-10 19:35 | XRay Report ---
SINGLE VIEW CHEST CLINICAL HISTORY: Nausea and vomiting. FINDINGS: An AP, portable, upright chest radiograph is compared to chest x-ray and chest CT dated 01/23/2022. The cardiomediastinal silhouette is unremarkable. The lungs and pleural spaces are clear. No pneumothorax is seen. The bony thorax is grossly intact. IMPRESSION: No active disease in the chest. ACT 112: Negative or not required by law. Electronically signed by: Hunter Freitas M.D. 04/10/2022 7:33 PM
--- NOTE | 2022-04-10 19:52 | CT Scan Report ---
CT SCAN OF THE CHEST, ABDOMEN, AND PELVIS WITH IV CONTRAST CLINICAL HISTORY: Atypical chest pain. Nausea and vomiting. Hematemesis. COMPARISON STUDY: CT scan of the chest, abdomen, and pelvis dated 01/23/2022. TECHNIQUE: Following the IV administration of 87 of Optiray 350, CT scan of the chest, abdomen, and p ben was performed from the thoracic inlet to the proximal femora. Images are reviewed in the axial, sagittal, and coronal planes. IV contrast was administered without complication. A dose lowering te chnique was utilized adhering to the principles of ALARA. The examinations are degraded by motion art ifact. CT DOSE: 1203.42 mGy.cm FINDINGS: CHEST: Thyroid: Imaged portions of the thyroid gland are normal in size and attenuation. Thoracic aorta: The thoracic aorta is normal in caliber and demonstrates standard 3-vessel arch anato my. No dissection is seen. Pulmonary vasculature: The pulmonary trunk is normal in caliber. There are no filling defects identif ied in the central pulmonary vessels to indicate pulmonary embolus. Note that this examination was no t protocoled for evaluation of the pulmonary arteries. Heart: The heart is normal in size and without pericardial effusion. There are scattered coronary art john calcifications. Lungs and pleural spaces: Evaluation of the lung parenchyma is compromised by motion artifact. There is no airspace consolidation or pleural effusion. The trachea and central airways appear clear. Mediastinum: There is no mediastinal lymphadenopathy. Angelica: Clear. Axillae: There is no axillary lymphadenopathy. Bony thorax: There is a mild chronic superior endplate compression deformity of T4. No lytic or blast ic lesions are identified. Arthritic change is noted in the shoulders. ABDOMEN AND PELVIS: Liver: The contrast-enhanced liver is normal in size, contour, and attenuation. There is no intrahepa tic biliary ductal dilatation. The hepatic veins and portal veins are patent. Gallbladder: Unremarkable. Spleen: Normal in size and attenuation. Pancreas: Unremarkable. Adrenal glands: Unremarkable. Kidneys: The contrast enhanced kidneys are normal in size and without hydronephrosis. The kidneys enh ance symmetrically. Abdominal vasculature: The abdominal aorta is normal in course and caliber. Bowel: There is no bowel obstruction. The appendix is well-visualized and normal. Peritoneum: There is no intraperitoneal free air or abdominal ascites. There is a small fat-containin g umbilical hernia. Lymphadenopathy: None. Pelvic viscera: The bladder, prostate, and seminal vesicles are normal as visualized. Calcification o f the penile tunica suggests Peyronie's. Skeletal structures: No lytic or blastic lesions are seen. IMPRESSION: 1. Motion compromised examinations. 2. No acute cardiopulmonary abnormality. 3. No acute infectious or inflammatory findings are seen in the abdomen or pelvis. 4. Additional findings as above. ACT 112: Negative or not required by law. Electronically signed by: Hunter Freitas M.D. 04/10/2022 7:50 PM
[2022-04-10] MEDS ORDERED: PHYTONADIONE 5 MG in DEXTROSE 5% 50 ML IV ONE ×2 (20:18→21:24)
[2022-04-10] MEDS ORDERED: PROCHLORPERAZINE 2 ML IV ONE (20:27)
[2022-04-10] MEDS ORDERED: SODIUM CHLORIDE 0.9% 1000ML 1,000 ML IV ONE (20:27)
[2022-04-10] MEDS ORDERED: CAPSAICIN CR 0.075% 60 GM TUBE EXT STA (21:11)
--- NOTE | 2022-04-10 21:33 | History & Physical Report ---
Date of Service April 10, 2022 Assessment & Plan (1) Intractable nausea and vomiting: (2) Hematemesis: (3) Coagulopathy: (4) Elevated INR: (5) Coffee ground emesis: (6) Hypertension: (7) Hyperlipidemia: (8) GERD (gastroesophageal reflux disease): (9) Diabetes mellitus, type 2: (10) Antisocial personality disorder: Plan Intractable nausea and vomiting/hematemesis/GERD- NPO Hemoglobin is 13.8, with range 12.0-14.0 Continue Protonix bolus/drip begun in the ED H&H every 6 hours Similar presentation to admission from 01/24-01/26/2022 Previously seen by gastroenterology, with no need for EGD at that time. Will likely need an EGD this visit Hold aspirin 81 mg p.o. twice daily Diabetes mellitus- Hold metformin, Humulin regular sliding scale, and Humulin 70/30 30 units subcu twice daily Place on Accu-Cheks before meals and at bedtime/every 6 hours with NovoLog SSI Question an element of gastroparesis contributing to his symptoms Coagulopathy- INR 4.0 with normal transaminases and not on anticoagulation Liver appears normal on CT Patient did receive vitamin K 5 mg, to which I added additional 5 mg for total of 10 mg IV and repeat INR in a.m. Patient is not on any blood thinners. Question some form of toxic ingestion which may be contributing to his coagulopathy and intractable nausea/vomiting Hypertension- Hold amlodipine, aspirin and lisinopril Hyponatremia- Sodium 126, serum osmolality 265, urine osmolality 396 Patient will be n.p.o. Not on any diuretics, and unlikely excess of fluid intake due to his reported history of hematemesis and intractable nausea vomiting On a clinical basis patient looks dry, and will gently hydrate and repeat laboratories in a.m. Patient has negative urine drug screen Hyperlipidemia- Hold atorvastatin Peripheral neuropathy- Hold gabapentin History of Present Illness Chief Complaint: The patient presents to the emergency department with complaint of nausea and vomiting for several days, which developed into hematemesis since yesterday. Primary Care Provider: JAHAIRA Bradley The patient is a 51-year-old male resident of [facility], with a past medical history including hypertension, hyperlipidemia, arthritis, diabetes mellitus, GERD, iron deficiency, peripheral neuropathy. He presented to the hospital and was admitted from 01/24-01/26/2022 with similar symptoms with a negative work-up at that time. His symptoms did resolve with conservative therapy. It is difficult to obtain a history from him in the emergency department this evening, but he reports vomiting blood since yesterday, after having several days of nausea and vomiting. He reports that this episode is similar to the one in January. Significant abnormal laboratories: INR 4.0, calcium 10.5, total bilirubin 1.8, direct bilirubin 0.4, sodium 126, creatinine 1.22, glucose 142, serum osmolality 265, urine osmolality 396 Allergies Allergy/AdvReac Type Severity Reaction Status Date / Time morphine Allergy Unknown SCI MARY Verified 01/24/22 00:14 TWP LIST tomato Allergy Unknown SCI MARY Verified 01/24/22 07:29 TWP LIST Home Medications Medication Instructions Recorded Confirmed Type atorvastatin 40 mg tablet 40 mg PO DAILY 01/08/19 01/24/22 History gabapentin 600 mg tablet 600 mg PO BID 01/08/19 01/24/22 History insulin human U-100 NPH-regulr 30 unit subcut BID 01/08/19 01/24/22 History 70-30 mix 100 unit/mL subcutaneous susp (Humulin 70/30 U-100 Insulin) insulin regular human 100 unit/mL 1 sliding scale dose subcut UD 01/08/19 01/24/22 History injection solution (Humulin R Regular U-100 Insulin) amlodipine 10 mg tablet 10 mg PO DAILY 01/01/22 01/24/22 History metformin 1,000 mg tablet 1,000 mg PO BID 01/01/22 01/24/22 History acetaminophen 500 mg tablet 1,000 mg PO QID PRN as directed 01/24/22 01/24/22 History ascorbic acid (vitamin C) 500 mg 500 mg PO BIDM 01/24/22 01/24/22 History chewable tablet (Vitamin C) aspirin 81 mg tablet,delayed 81 mg PO BID 01/24/22 01/24/22 History release diclofenac sodium 1 % topical gel 1 ea topical BID 01/24/22 01/24/22 History docusate sodium 100 mg capsule 100 mg PO BID 01/24/22 01/24/22 History ferrous gluconate 324 mg (38 mg 324 mg PO BIDM 01/24/22 01/24/22 History iron) tablet ondansetron HCl 4 mg tablet 4 mg PO TID PRN as directed 01/24/22 01/24/22 History promethazine 25 mg/mL injection 25 mg IM BID PRN as directed 01/24/22 01/24/22 History solution cholecalciferol (vitamin D3) 125 5,000 unit PO QAM #30 tabs 01/26/22 Rx mcg (5,000 unit) tablet famotidine 10 mg tablet (Acid 10 mg PO BID #60 tabs 01/26/22 Rx [employer] (famotidine)) lisinopril 40 mg tablet 20 mg PO DAILY #15 tabs 01/26/22 01/24/22 Rx Past Med/Surg History Medical History Antisocial personality disorder Diabetes mellitus, type 2 IDDM GERD (gastroesophageal reflux disease) History of COVID-19 03/11/2020 Hyperlipidemia Hypertension 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 Osteoarthritis of right knee Sleep apnea Surgical History H/O fasciotomy LEFT LEG +SKIN GRAFT Social History Smoking Status: Current some day smoker Tobacco Type: E-cigarettes / Vaping Hx Alcohol Use: No Hx Substance Use: No Preferred Language: Hungarian Communication Ability: Effective Marzipan Molder Required: No Beliefs That Will Affect Care: None Current Living Situation: Other Current Living Situation Comment: [facility] Other Information That Helps Us Care for You: No Feels Safe at Home: Yes Safety Concerns: Feels Safe At This Time Assistive Devices: None Review of Systems Review of Systems: The patient denies palpitations, lower extremity swelling, sore throat, fevers, chills, sweats, diarrhea , constipation, abdominal pain, pelvic pain, blood in urine or stool, dysuria, urinary frequency or urgency, lightheadedness, dizziness, headache, memory loss, loss of consciousness, rash, imbalance, focal weakness, numbness or tingling in arms or legs, generalized arthralgias or myalgias, back or neck pain, or night sweats. The review of systems is otherwise negative other than for that already noted above, and at least 10 systems have been reviewed. Physical Exam Physical Exam: The patient is awake, alert and oriented 3, well developed and well nourished, normocephalic and atraumatic, lying in bed and in no acute distress. HEENT--PERRL, EOMI, mucous membranes and oropharynx dry. Neck--supple. No JVD. No bruits. Thyroid normal, trachea midline, no adenopathy. Heart--normal S1 and S2. No murmurs, rubs or gallops. Lungs--clear bilaterally, no respiratory distress, no accessory muscle use. Abdomen--normal bowel sounds and soft. Nontender. Nondistended. Mildly obese Extremities--no cyanosis or clubbing. No edema. Dermatologic--normal skin turgor, normal color, no abnormal lymph nodes, no rash. Neurologic--cranial nerves II through XII grossly intact. Rheumatologic--normal range of motion. Psychiatric--normal affect. Results & Data Results & Data ([facility]) Vital Signs (Past 12 Hours) Vital Signs Temp Pulse Pulse Resp BP BP Pulse Ox 04/10/22 20:20 91 H 100 04/10/22 19:40 91 H 16 181/89 H 99 04/10/22 17:16 81 04/10/22 17:37 77 20 95 04/10/22 17:14 37.1 C 82 20 151/89 H 100 O2 Del Method 04/10/22 20:20 Room Air 04/10/22 19:40 Room Air 04/10/22 17:16 04/10/22 17:37 Room Air 04/10/22 17:14 Room Air Laboratory Results Laboratory Results WBC 4.58 K/ul (4.8-10.8) L 04/10/22 17:19 RBC 5.13 M/uL (4.70-6.10) 04/10/22 17:19 Hgb 14.5 g/dl (14.0-18.0) 04/11/22 00:58 Hct 42.9 % (42.0-52.0) 04/11/22 00:58 MCV 76.6 fL (80.0-100.0) L 04/10/22 17:19 MCH 26.9 pg (25.0-34.0) 04/10/22 17:19 MCHC 35.1 g/dL (32.0-36.0) 04/10/22 17:19 RDW Std Deviation 39.2 fL (36.4-46.3) 04/10/22 17:19 RDW Coeff of Alda 14.1 % (11.5-14.5) 04/10/22 17: Plt Count 324 K/uL (130-400) 04/10/22 17:19 MPV 9.3 fL (9.4-12.4) L 04/10/22 17:19 Immature Gran % (Auto) 0.2 % 04/10/22 17:19 Neut % (Auto) 69.8 % 04/10/22 17:19 Lymph % (Auto) 21.0 % 04/10/22 17:19 Imperial % (Auto) 8.1 % 04/10/22 17:19 Eos % (Auto) 0.2 % 04/10/22 17:19 Baso % (Auto) 0.7 % 04/10/22 17:19 Neut # (Auto) 3.20 K/uL (1.40-6.50) 04/10/22 17:19 Lymph # (Auto) 0.96 K/uL (1.2-3.4) L 04/10/22 17:19 Imperial # (Auto) 0.37 K/uL (0.11-0.59) 04/10/22 17:19 Eos # (Auto) 0.01 K/uL (0-0.50) 04/10/22 17:19 Baso # (Auto) 0.03 K/uL (0-0.2) 04/10/22 17:19 Immature Gran # (Auto) 0.01 K/uL (0.01-0.20) 04/10/22 17:19 PT 39.9 Seconds (9.0-12.0) H 04/10/22 17:19 INR 4.0 (0.9-1.1) H 04/10/22 17:19 APTT 44.8 Seconds (21.0-31.0) H 04/10/22 17:19 PTT Ratio 1.6 04/10/22 17:19 Sodium 126 mmol/L (136-145) L 04/10/22 17:19 Potassium 3.8 mmol/L (3.5-5.1) 04/10/22 17:19 Chloride 88 mmol/L (98-107) L 04/10/22 17:19 Carbon Dioxide 24 mmol/L (21-32) 04/10/22 17:19 Anion Gap 14 (3-11) H 04/10/22 17:19 BUN 8 mg/dl (6-23) 04/10/22 17:19 Creatinine 1.22 mg/dl (0.6-1.4) 04/10/22 17:19 Est Cr Clr Drug Dosing 89.3 ml/min 04/10/22 17:19 Est GFR ( Amer) 78.5 ml/min 04/10/22 17:19 Est GFR (Non-Af Amer) 67.7 ml/min 04/10/22 17:19 BUN/Creatinine Ratio 6.6 (10-20) L 04/10/22 17:19 Glucose 142 mg/dl (70-99(Fasting)) H 04/10/22 17: POC Glucose 210 mg/dl (70-99) H 04/11/22 00:46 Osmolality 265 mOsm/kg (280-300) L 04/10/22 17:13 Calcium 10.5 mg/dl (8.5-10.1) H 04/10/22 17:19 Total Bilirubin 1.8 mg/dl (0.2-1.0) H 04/10/22 17:19 Direct Bilirubin 0.4 mg/dl (0-0.2) H 04/10/22 17:19 AST 25 U/L (13-39) 04/10/22 17:19 ALT 17 U/L (7-52) 04/10/22 17:19 Alkaline Phosphatase 77 U/L (34-104) 04/10/22 17:19 Total Protein 7.6 gm/dl (6.0-8.3) 04/10/22 17:19 Albumin 4.8 gm/dl (3.4-5.0) 04/10/22 17: Globulin 2.8 gm/dl (2.5-4.0) 04/10/22 17: Albumin/Globulin Ratio 1.7 (0.9-2) 04/10/22 17: Lipase 6 U/L (11-82) L 04/10/22 17:19 Urine Osmolality 396 mOsm/kg (500-800) L 04/10/22 20:40 Ur Random Sodium 58 mmol/L 04/10/22 20:40 Nasal Screen MRSA (PCR) Negative (Negative) 04/11/22 00:07 Urine Opiates Screen Neg (Neg) 04/10/22 20:44 Ur Methadone, Qual Neg (Neg) 04/10/22 20:44 Urine Barbiturates Neg (Neg) 04/10/22 20:44 Ur Phencyclidine (PCP) Neg (Neg) 04/10/22 20:44 U Amphetamin/Meth Scrn Neg (Neg) 04/10/22 20:44 MDMA (Ecstasy) Screen Neg (Neg) 04/10/22 20:44 U Benzodiazepines Scrn Neg (Neg) 04/10/22 20:44 Ur Cocaine Metabolite Neg (Neg) 04/10/22 20:44 U Marijuana (THC) Screen Neg (Neg) 04/10/22 20:44 SARS-CoV-2, RNA, NAAT NEGATIVE (NEGATIVE) 04/10/22 21:19 Blood Type O Positive 04/10/22 17:13 Antibody Screen NEGATIVE 04/10/22 17:13 Impressions Abdomen/Pelvis CT 04/10/22 17:45 CT SCAN OF THE CHEST, ABDOMEN, AND PELVIS WITH IV CONTRAST CLINICAL HISTORY: Atypical chest pain. Nausea and vomiting. Hematemesis. COMPARISON STUDY: CT scan of the chest, abdomen, and pelvis dated 01/23/2022. TECHNIQUE: Following the IV administration of 87 of Optiray 350, CT scan of the chest, abdomen, and pelvis was performed from the thoracic inlet to the proximal femora. Images are reviewed in the axial, sagittal, and coronal planes. IV contrast was administered without complication. A dose lowering technique was utilized adhering to the principles of ALARA. The examinations are degraded by motion artifact. CT DOSE: 1203.42 mGy.cm FINDINGS: CHEST: Thyroid: Imaged portions of the thyroid gland are normal in size and attenuation. Thoracic aorta: The thoracic aorta is normal in caliber and demonstrates standard 3-vessel arch anatomy. No dissection is seen. Pulmonary vasculature: The pulmonary trunk is normal in caliber. There are no filling defects identified in the central pulmonary vessels to indicate pulmonary embolus. Note that this examination was not protocoled for evaluation of the pulmonary arteries. Heart: The heart is normal in size and without pericardial effusion. There are scattered coronary artery calcifications. Lungs and pleural spaces: Evaluation of the lung parenchyma is compromised by motion artifact. There is no airspace consolidation or pleural effusion. The trachea and central airways appear clear. Mediastinum: There is no mediastinal lymphadenopathy. Angelica: Clear. Axillae: There is no axillary lymphadenopathy. Bony thorax: There is a mild chronic superior endplate compression deformity of T4. No lytic or blastic lesions are identified. Arthritic change is noted in the shoulders. ABDOMEN AND PELVIS: Liver: The contrast-enhanced liver is normal in size, contour, and attenuation. There is no intrahepatic biliary ductal dilatation. The hepatic veins and portal veins are patent. Gallbladder: Unremarkable. Spleen: Normal in size and attenuation. Pancreas: Unremarkable. Adrenal glands: Unremarkable. Kidneys: The contrast enhanced kidneys are normal in size and without hydronephrosis. The kidneys enhance symmetrically. Abdominal vasculature: The abdominal aorta is normal in course and caliber. Bowel: There is no bowel obstruction. The appendix is well-visualized and normal. Peritoneum: There is no intraperitoneal free air or abdominal ascites. There is a small fat-containing umbilical hernia. Lymphadenopathy: None. Pelvic viscera: The bladder, prostate, and seminal vesicles are normal as visualized. Calcification of the penile tunica suggests Peyronie's. Skeletal structures: No lytic or blastic lesions are seen. IMPRESSION: 1. Motion compromised examinations. 2. No acute cardiopulmonary abnormality. 3. No acute infectious or inflammatory findings are seen in the abdomen or pelvis. 4. Additional findings as above. ACT 112: Negative or not required by law. Electronically signed by: Hunter Freitas M.D. 04/10/2022 7:50 PM Chest X-Ray 04/10/22 17:45 SINGLE VIEW CHEST CLINICAL HISTORY: Nausea and vomiting. FINDINGS: An AP, portable, upright chest radiograph is compared to chest x-ray and chest CT dated 01/23/2022. The cardiomediastinal silhouette is unremarkable. The lungs and pleural spaces are clear. No pneumothorax is seen. The bony thorax is grossly intact. IMPRESSION: No active disease in the chest. ACT 112: Negative or not required by law. Electronically signed by: Hunter Freitas M.D. 04/10/2022 7:[address] 04/10/22 17:47 CT SCAN OF THE CHEST, ABDOMEN, AND PELVIS WITH IV CONTRAST CLINICAL HISTORY: Atypical chest pain. Nausea and vomiting. Hematemesis. COMPARISON STUDY: CT scan of the chest, abdomen, and pelvis dated 01/23/2022. TECHNIQUE: Following the IV administration of 87 of Optiray 350, CT scan of the chest, abdomen, and pelvis was performed from the thoracic inlet to the proximal femora. Images are reviewed in the axial, sagittal, and coronal planes. IV contrast was administered without complication. A dose lowering technique was utilized adhering to the principles of ALARA. The examinations are degraded by motion artifact. CT DOSE: 1203.42 mGy.cm FINDINGS: CHEST: Thyroid: Imaged portions of the thyroid gland are normal in size and attenuation. Thoracic aorta: The thoracic aorta is normal in caliber and demonstrates standard 3-vessel arch anatomy. No dissection is seen. Pulmonary vasculature: The pulmonary trunk is normal in caliber. There are no filling defects identified in the central pulmonary vessels to indicate pulmonary embolus. Note that this examination was not protocoled for evaluation of the pulmonary arteries. Heart: The heart is normal in size and without pericardial effusion. There are scattered coronary artery calcifications. Lungs and pleural spaces: Evaluation of the lung parenchyma is compromised by motion artifact. There is no airspace consolidation or pleural effusion. The trachea and central airways appear clear. Mediastinum: There is no mediastinal lymphadenopathy. Angelica: Clear. Axillae: There is no axillary lymphadenopathy. Bony thorax: There is a mild chronic superior endplate compression deformity of T4. No lytic or blastic lesions are identified. Arthritic change is noted in the shoulders. ABDOMEN AND PELVIS: Liver: The contrast-enhanced liver is normal in size, contour, and attenuation. There is no intrahepatic biliary ductal dilatation. The hepatic veins and portal veins are patent. Gallbladder: Unremarkable. Spleen: Normal in size and attenuation. Pancreas: Unremarkable. Adrenal glands: Unremarkable. Kidneys: The contrast enhanced kidneys are normal in size and without hydronephrosis. The kidneys enhance symmetrically. Abdominal vasculature: The abdominal aorta is normal in course and caliber. Bowel: There is no bowel obstruction. The appendix is well-visualized and normal. Peritoneum: There is no intraperitoneal free air or abdominal ascites. There is a small fat-containing umbilical hernia. Lymphadenopathy: None. Pelvic viscera: The bladder, prostate, and seminal vesicles are normal as visualized. Calcification of the penile tunica suggests Peyronie's. Skeletal structures: No lytic or blastic lesions are seen. IMPRESSION: 1. Motion compromised examinations. 2. No acute cardiopulmonary abnormality. 3. No acute infectious or inflammatory findings are seen in the abdomen or pelvis. 4. Additional findings as above. ACT 112: Negative or not required by law. Electronically signed by: Hunter Freitas M.D. 04/10/2022 7:50 PM Code Status & VTE Plan Code Status Full code VTE Prophylaxis Plan VTE Prophylaxis will be ordered: Yes PG Care Time/CCT Total # of Minutes Spent Total Time Spent with Patient: Total time spent is greater than 50% in coordination of care (as documented) at patient's floor/unit and/or counseling patient: Coding Level of Care Code 30877 INT INP/OBS CARE 3/75MIN Diagnoses Intractable nausea and vomiting R11.2 Hematemesis K92.0 Coagulopathy D68.9 Elevated INR R79.1 Coffee ground emesis K92.0 Hypertension I10 Hyperlipidemia E78.5 GERD (gastroesophageal reflux disease) K21.9 Diabetes mellitus, type 2 E11.9 Antisocial personality disorder F60.2
[2022-04-10 22:00] LABS: Amphetamines+Metham, Urine Neg (Neg); Barbiturates, Urine Neg (Neg); Benzodiazepine, Urine Neg (Neg); Cocaine, Urine Neg (Neg); MDMA (Ecstacy), Urine Neg (Neg); Methadone, Urine Neg (Neg); Opiate, Urine Neg (Neg); Phencyclidine, Urine Neg (Neg)
[2022-04-10 23:04] LABS: Bilirubin Direct 0.4 mg/dl (0-0.2)
[2022-04-10] MEDS ORDERED: CAPSAICIN CR 0.075% 60 GM TUBE EXT ONE (23:36)
[2022-04-11] MEDS ORDERED: CARBOHYDRATES FOR HYPOGLYCEMIA PO PRN (00:43)
[2022-04-11] MEDS ORDERED: DEXTROSE 50% 50 ML SYRINGE IV PRN (00:43)
[2022-04-11] MEDS ORDERED: GLUCOSE 10 TAB/TUBE PO PRN (00:43)
[2022-04-11] MEDS ORDERED: GLUCAGON FOR INJ 1 MG VIAL SQ PRN (00:43)
[2022-04-11] MEDS ORDERED: GLUCOSE 40% GEL 15 GM TUBE PO PRN (00:43)
--- NOTE | 2022-04-11 00:58 | Emergency Department Note ---
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 The patient was admitted to this facility in January 2022 for similar episode of symptoms where he was treated for suspected upper GI bleed/PUD and given his stable H/H plan was for outpatient follow-up for evaluation for possible H. pylori. Patient denies any fevers, chills, cough, congestion. He reports he has had ongoing nausea and vomiting intermittently since his discharge but this worsened over the past week. He denies any anticoagulation. He reports his [facility] providers recently discontinued his GI medications in preparation for his upcoming H. pylori testing. He denies any chest pain, shortness of breath. He denies any bloody or black stool. On arrival the patient is uncomfortable but no acute distress, afebrile stable vital signs. He appears clinically dry. He has mild epigastric discomfort without discrete tenderness. Palpation of the neck and chest does not demonstrate crepitus. Treatment initiated with IVF hydration, protonix bolus and gtt, reglan, diphenhydramine. WBC 4.5K nonspecific. H/H similar to prior. Platelets within normal limits. Chemistry without metabolic acidosis. Sodium 126. Creatinine within normal limits and BUN is not elevated. Total bilirubin 1.8 with direct bilirubin 0.4, nonspecific with normal AST, ALT and alk phos. Lipase not elevated. Drug screen was negative. COVID-19 RNA, OSWALD test was negative. The patient's INR was elevated at 4.0 in the setting of the patient not being on anticoagulation. CT of the chest and abdomen pelvis were performed and were negative for acute abnormalities. Unclear etiology to patient's elevated INR at this time though may be related to vitamin K deficiency in the setting of underlying PUD/gastritis versus intake of warfarin via unclear circumstances. A vitamin K level was drawn but is a send out test and likely will not result for a week. Following this level IV vitamin K was administered. Given the patient's intractable nausea and vomiting with component of hematemesis patient agrees with plan for admission for further management. Additionally, ordered for Compazine as well Capsaicin for continued vomiting. Case was discussed with Dr. Zavala, [facility] hospitalist, who will evaluate the patient for admission. Triage Nursing notes reviewed and agree them. Prior/outside medical records reviewed Vital Signs: reviewed Differential diagnosis: Diverticulosis, AVM, coagulopathy, colitis, inflammatory bowel disease, malignancy, Kate-Guzman tear, esophagitis, peptic ulcer disease, variceal bleed, gastritis, epistaxis, fissure, hemorrhoids, as well as other pathologies. ER treatment provided: See below. Diagnostics interpreted by me: Cardiac Monitoring: An order for continuous cardiac monitoring was placed and demonstrated normal sinus rhythm, 84 bpm, no ectopy Laboratory studies: See below Imaging studies: See below Consultation(s): Case was discussed with APARNA Canales hospitalist, who will evaluate the patient for admission. 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 The patient was admitted to this facility in January 2022 for similar episode of symptoms where he was treated for suspected upper GI bleed/PUD and given his stable H/H plan was for outpatient follow-up for evaluation for possible H. pylori. Patient denies any fevers, chills, cough, congestion. He reports he has had ongoing nausea and vomiting intermittently since his discharge but this worsened over the past week. He denies any anticoagulation. He reports his [facility] providers recently discontinued his GI medications in preparation for his upcoming H. pylori testing. He denies any chest pain, shortness of breath. He denies any bloody or black stool. ROS: See above HPI for pertinent positives & negatives. A total of 10 systems r eviewed and were otherwise negative. VITALS:See Below PHYSICAL EXAMINATION: GENERAL: Awake, alert, uncomfortable-appearing, in no distress, BMI 31.8 HENT: Normocephalic, atraumatic. Oropharynx with dry mucous membranes and otherwise unremarkable. EYES: Normal conjunctiva. Sclera non-icteric. NECK: Supple. No nuchal rigidity. FROM. No JVD. No crepitus RESPIRATORY: Clear to auscultation. CARDIAC: Regular rate, normal rhythm. Extremities warm and well perfused. Pulses equal. ABDOMEN: Soft, non-distended. Mild epigastric discomfort without discrete tenderness to palpation. No rebound or guarding. No masses. RECTAL: Deferred. MUSCULOSKELETAL: Chest examination reveals no tenderness. No crepitus. The back is symmetrical on inspection without obvious abnormality. There is no CVA tenderness to palpation. No joint edema. LOWER EXTREMITIES: Calves are equal size bilaterally and non-tender. No edema. No discoloration. NEURO: Normal sensorium. No sensory or motor deficits noted. SKIN: No rash or jaundice noted. ED COURSE: Critical Care: I have personally spent greater than 35 minutes of critical care time in the direct management of this patient. This includes bedside care, interpretation of diagnostic studies, and testing, discussion with consultants, patient, and family members, and other required patient management activities. This 35 minutes is in excess of all separately billable procedures. Prabhakar Cardenas MD Past Med/Surg History Medical History Antisocial personality disorder Diabetes mellitus, type 2 IDDM GERD (gastroesophageal reflux disease) History of COVID-19 03/11/2020 Hyperlipidemia Hypertension 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 Osteoarthritis of right knee Sleep apnea Surgical History H/O fasciotomy LEFT LEG +SKIN GRAFT Social History Smoking Status: Current some day smoker Tobacco Type: E-cigarettes / Vaping Hx Alcohol Use: No Hx Substance Use: No Preferred Language: Hungarian Communication Ability: Effective Flight/Transport Nurse Required: No Beliefs That Will Affect Care: None Current Living Situation: Other Current Living Situation Comment: Correctional Facility Other Information That Helps Us Care for You: No Feels Safe at Home: Yes Safety Concerns: Feels Safe At This Time Assistive Devices: None Allergies Allergies Allergy/AdvReac Type Severity Reaction Status Date / Time morphine Allergy Unknown SCI MARY Verified 01/24/22 00:14 TWP LIST tomato Allergy Unknown SCI MARY Verified 01/24/22 07:29 TWP LIST Home Meds Home Medications Medication Instructions Recorded Confirmed atorvastatin 40 mg tablet 40 mg PO DAILY 01/08/19 01/24/22 gabapentin 600 mg tablet 600 mg PO BID 01/08/19 01/24/22 insulin human U-100 NPH-regulr 30 unit subcut BID 01/08/19 01/24/22 70-30 mix 100 unit/mL subcutaneous susp (Humulin 70/30 U-100 Insulin) insulin regular human 100 unit/mL 1 sliding scale dose subcut UD 01/08/19 01/24/22 injection solution (Humulin R Regular U-100 Insulin) amlodipine 10 mg tablet 10 mg PO DAILY 01/01/22 01/24/22 metformin 1,000 mg tablet 1,000 mg PO BID 01/01/22 01/24/22 acetaminophen 500 mg tablet 1,000 mg PO QID PRN as directed 01/24/22 01/24/22 ascorbic acid (vitamin C) 500 mg 500 mg PO BIDM 01/24/22 01/24/22 chewable tablet (Vitamin C) aspirin 81 mg tablet,delayed 81 mg PO BID 01/24/22 01/24/22 release diclofenac sodium 1 % topical gel 1 ea topical BID 01/24/22 01/24/22 docusate sodium 100 mg capsule 100 mg PO BID 01/24/22 01/24/22 ferrous gluconate 324 mg (38 mg 324 mg PO BIDM 01/24/22 01/24/22 iron) tablet ondansetron HCl 4 mg tablet 4 mg PO TID PRN as directed 01/24/22 01/24/22 promethazine 25 mg/mL injection 25 mg IM BID PRN as directed 01/24/22 01/24/22 solution Previous Rx's Medication Instructions Recorded cholecalciferol (vitamin D3) 125 5,000 unit PO QAM #30 tabs 01/26/22 mcg (5,000 unit) tablet famotidine 10 mg tablet (Acid 10 mg PO BID #60 tabs 01/26/22 Line Installer (famotidine)) lisinopril 40 mg tablet 20 mg PO DAILY #15 tabs 01/26/22 Results & Data (ED) Vital Signs Vital Signs - 24 hr 04/10/22 17:14 04/10/22 17:37 04/10/22 17:16 Temperature 37.1 C Temperature Source Oral Pulse Rate 82 77 81 Pulse Rate [Apical] Pulse Rhythm Regular Pulse Strength Normal Respiratory Rate 20 20 Respiratory Effort / Characteristics Non-Labored Spontaneous Respiratory Depth Normal Respiratory Pattern Regular Blood Pressure 151/89 H Blood Pressure [Right Arm] Blood Pressure Mean 109 Blood Pressure Mean [Right Arm] Blood Pressure Position Lying Pulse Oximetry 100 95 Oxygen Delivery Method Room Air Room Air Sepsis Recent Fever Within 48 Hours No Sepsis New/Unexplained Change in Mental Status No Sepsis Action Taken by Nursing No Action Required 04/10/22 19:40 04/10/22 20:20 04/10/22 21:00 Temperature Temperature Source Pulse Rate 91 H 88 Pulse Rate [Apical] 91 H Pulse Rhythm Pulse Strength Respiratory Rate 16 29 H Respiratory Effort / Characteristics Respiratory Depth Respiratory Pattern Blood Pressure 151/74 H Blood Pressure [Right Arm] 181/89 H Blood Pressure Mean 99 Blood Pressure Mean [Right Arm] 119 Blood Pressure Position Pulse Oximetry 99 100 Oxygen Delivery Method Room Air Room Air Sepsis Recent Fever Within 48 Hours Sepsis New/Unexplained Change in Mental Status Sepsis Action Taken by Nursing 04/10/22 21:06 Temperature Temperature Source Pulse Rate 84 Pulse Rate [Apical] Pulse Rhythm Pulse Strength Respiratory Rate Respiratory Effort / Characteristics Respiratory Depth Respiratory Pattern Blood Pressure Blood Pressure [Right Arm] Blood Pressure Mean Blood Pressure Mean [Right Arm] Blood Pressure Position Pulse Oximetry Oxygen Delivery Method Sepsis Recent Fever Within 48 Hours Sepsis New/Unexplained Change in Mental Status Sepsis Action Taken by Nursing Laboratory Data 04/10/22 17:19 04/10/22 17:19 Lab Results 04/10/22 04/10/22 04/10/22 Range/Units 17:13 17:13 17:19 WBC 4.58 L (4.8-10.8) K/ul RBC 5.13 (4.70-6.10) M/uL Hgb 13.8 L (14.0-18.0) g/dl Hct 39.3 L (42.0-52.0) % MCV 76.6 L (80.0-100.0) fL MCH 26.9 (25.0-34.0) pg MCHC 35.1 (32.0-36.0) g/dL RDW Std Deviation 39.2 (36.4-46.3) fL RDW Coeff of Alda 14.1 (11.5-14.5) % Plt Count 324 (130-400) K/uL MPV 9.3 L (9.4-12.4) fL Immature Gran % (Auto) 0.2 % Neut % (Auto) 69.8 % Lymph % (Auto) 21.0 % Wilkinson % (Auto) 8.1 % Eos % (Auto) 0.2 % Baso % (Auto) 0.7 % Neut # (Auto) 3.20 (1.40-6.50) K/uL Lymph # (Auto) 0.96 L (1.2-3.4) K/uL Wilkinson # (Auto) 0.37 (0.11-0.59) K/uL Eos # (Auto) 0.01 (0-0.50) K/uL Baso # (Auto) 0.03 (0-0.2) K/uL Immature Gran # (Auto) 0.01 (0.01-0.20) K/uL PT (9.0-12.0) Seconds INR (0.9-1.1) APTT (21.0-31.0) Seconds PTT Ratio Sodium (136-145) mmol/L Potassium (3.5-5.1) mmol/L Chloride (98-107) mmol/L Carbon Dioxide (21-32) mmol/L Anion Gap (3-11) BUN (6-23) mg/dl Creatinine (0.6-1.4) mg/dl Est Cr Clr Drug Dosing ml/min Est GFR ( Amer) ml/min Est GFR (Non-Af Amer) ml/min BUN/Creatinine Ratio (10-20) Glucose (70-99(Fasting)) mg/dl Osmolality 265 L (280-300) mOsm/kg Calcium (8.5-10.1) mg/dl Total Bilirubin (0.2-1.0) mg/dl Direct Bilirubin (0-0.2) mg/dl AST (13-39) U/L ALT (7-52) U/L Alkaline Phosphatase (34-104) U/L Total Protein (6.0-8.3) gm/dl Albumin (3.4-5.0) gm/dl Globulin (2.5-4.0) gm/dl Albumin/Globulin Ratio (0.9-2) Lipase (11-82) U/L Urine Osmolality (500-800) mOsm/kg Ur Random Sodium mmol/L Urine Opiates Screen (Neg) Ur Methadone, Qual (Neg) Urine Barbiturates (Neg) Ur Phencyclidine (PCP) (Neg) U Amphetamin/Meth Scrn (Neg) MDMA (Ecstasy) Screen (Neg) U Benzodiazepines Scrn (Neg) Ur Cocaine Metabolite (Neg) U Marijuana (THC) Screen (Neg) SARS-CoV-2, RNA, NAAT (NEGATIVE) Blood Type O Positive Antibody Screen NEGATIVE 04/10/22 04/10/22 04/10/22 Range/Units 17:19 17:19 20:40 WBC (4.8-10.8) K/ul RBC (4.70-6.10) M/uL Hgb (14.0-18.0) g/dl Hct (42.0-52.0) % MCV (80.0-100.0) fL MCH (25.0-34.0) pg MCHC (32.0-36.0) g/dL RDW Std Deviation (36.4-46.3) fL RDW Coeff of Alda (11.5-14.5) % Plt Count (130-400) K/uL MPV (9.4-12.4) fL Immature Gran % (Auto) % Neut % (Auto) % Lymph % (Auto) % Wilkinson % (Auto) % Eos % (Auto) % Baso % (Auto) % Neut # (Auto) (1.40-6.50) K/uL Lymph # (Auto) (1.2-3.4) K/uL Wilkinson # (Auto) (0.11-0.59) K/uL Eos # (Auto) (0-0.50) K/uL Baso # (Auto) (0-0.2) K/uL Immature Gran # (Auto) (0.01-0.20) K/uL PT 39.9 H (9.0-12.0) Seconds INR 4.0 H (0.9-1.1) APTT 44.8 H (21.0-31.0) Seconds PTT Ratio 1.6 Sodium 126 L (136-145) mmol/L Potassium 3.8 (3.5-5.1) mmol/L Chloride 88 L (98-107) mmol/L Carbon Dioxide 24 (21-32) mmol/L Anion Gap 14 H (3-11) BUN 8 (6-23) mg/dl Creatinine 1.22 (0.6-1.4) mg/dl Est Cr Clr Drug Dosing 89.3 ml/min Est GFR ( Amer) 78.5 ml/min Est GFR (Non-Af Amer) 67.7 ml/min BUN/Creatinine Ratio 6.6 L (10-20) Glucose 142 H (70-99(Fasting)) mg/dl Osmolality (280-300) mOsm/kg Calcium 10.5 H (8.5-10.1) mg/dl Total Bilirubin 1.8 H (0.2-1.0) mg/dl Direct Bilirubin 0.4 H (0-0.2) mg/dl AST 25 (13-39) U/L ALT 17 (7-52) U/L Alkaline Phosphatase 77 (34-104) U/L Total Protein 7.6 (6.0-8.3) gm/dl Albumin 4.8 (3.4-5.0) gm/dl Globulin 2.8 (2.5-4.0) gm/dl Albumin/Globulin Ratio 1.7 (0.9-2) Lipase 6 L (11-82) U/L Urine Osmolality 396 L (500-800) mOsm/kg Ur Random Sodium mmol/L Urine Opiates Screen (Neg) Ur Methadone, Qual (Neg) Urine Barbiturates (Neg) Ur Phencyclidine (PCP) (Neg) U Amphetamin/Meth Scrn (Neg) MDMA (Ecstasy) Screen (Neg) U Benzodiazepines Scrn (Neg) Ur Cocaine Metabolite (Neg) U Marijuana (THC) Screen (Neg) SARS-CoV-2, RNA, NAAT (NEGATIVE) Blood Type Antibody Screen 04/10/22 04/10/22 04/10/22 Range/Units 20:40 20:44 21:19 WBC (4.8-10.8) K/ul RBC (4.70-6.10) M/uL Hgb (14.0-18.0) g/dl Hct (42.0-52.0) % MCV (80.0-100.0) fL MCH (25.0-34.0) pg MCHC (32.0-36.0) g/dL RDW Std Deviation (36.4-46.3) fL RDW Coeff of Alda (11.5-14.5) % Plt Count (130-400) K/uL MPV (9.4-12.4) fL Immature Gran % (Auto) % Neut % (Auto) % Lymph % (Auto) % Wilkinson % (Auto) % Eos % (Auto) % Baso % (Auto) % Neut # (Auto) (1.40-6.50) K/uL Lymph # (Auto) (1.2-3.4) K/uL Wilkinson # (Auto) (0.11-0.59) K/uL Eos # (Auto) (0-0.50) K/uL Baso # (Auto) (0-0.2) K/uL Immature Gran # (Auto) (0.01-0.20) K/uL PT (9.0-12.0) Seconds INR (0.9-1.1) APTT (21.0-31.0) Seconds PTT Ratio Sodium (136-145) mmol/L Potassium (3.5-5.1) mmol/L Chloride (98-107) mmol/L Carbon Dioxide (21-32) mmol/L Anion Gap (3-11) BUN (6-23) mg/dl Creatinine (0.6-1.4) mg/dl Est Cr Clr Drug Dosing ml/min Est GFR ( Amer) ml/min Est GFR (Non-Af Amer) ml/min BUN/Creatinine Ratio (10-20) Glucose (70-99(Fasting)) mg/dl Osmolality (280-300) mOsm/kg Calcium (8.5-10.1) mg/dl Total Bilirubin (0.2-1.0) mg/dl Direct Bilirubin (0-0.2) mg/dl AST (13-39) U/L ALT (7-52) U/L Alkaline Phosphatase (34-104) U/L Total Protein (6.0-8.3) gm/dl Albumin (3.4-5.0) gm/dl Globulin (2.5-4.0) gm/dl Albumin/Globulin Ratio (0.9-2) Lipase (11-82) U/L Urine Osmolality (500-800) mOsm/kg Ur Random Sodium 58 mmol/L Urine Opiates Screen Neg (Neg) Ur Methadone, Qual Neg (Neg) Urine Barbiturates Neg (Neg) Ur Phencyclidine (PCP) Neg (Neg) U Amphetamin/Meth Scrn Neg (Neg) MDMA (Ecstasy) Screen Neg (Neg) U Benzodiazepines Scrn Neg (Neg) Ur Cocaine Metabolite Neg (Neg) U Marijuana (THC) Screen Neg (Neg) SARS-CoV-2, RNA, NAAT NEGATIVE (NEGATIVE) Blood Type Antibody Screen Administered Medications Pantoprazole Sodium 40 mg/ (Dextrose) 100 mls @ 20 mls/hr IV Q5H [facility] Stop: 05/10/22 18:14 Last Admin: 04/11/22 04:03 Dose: 8 mg/hr, 20 mls/hr Documented By: Infusion: 04/11/22 04:03 Dose: 8 mg/hr, 20 mls/hr Documented By: Admin: 04/10/22 23:37 Dose: 8 mg/hr, 20 mls/hr Documented By: Infusion: 04/10/22 23:33 Dose: 8 mg/hr, 20 mls/hr Documented By: Admin: 04/10/22 18:33 Dose: 8 mg/hr, 20 mls/hr Documented By: ELIE Potassium Chloride/Sodium Chloride (Normal Saline W/20 Meq Kcl) 20 meq in 1,000 mls @ 80 mls/hr IV .[id number] [facility] Stop: 05/11/22 00:59 Last Admin: 04/11/22 04:02 Dose: 80 mls/hr Documented By: TOSHIA Insulin Aspart (Insulin Aspart Per Unit) 0 units SC Q6 [facility] Stop: 05/11/22 00:59 Last Admin: 04/11/22 01:12 Dose: 3 units Documented By: TOSHIA Co-signed By: CARITO Ondansetron HCl (Ondansetron Inj 2 Mg/Ml 2 Ml Vial) 4 mg IV Q6H PRN PRN Reason: Nausea Stop: 05/11/22 00:42 Last Admin: 04/11/22 01:05 Dose: 4 mg Documented By: TOSHIA Discontinued Medications Capsaicin (Capsaicin Cr 0.075% 60 Gm Tube) 1 appln EXT NOW STA Stop: 04/10/22 21:12 Last Admin: 04/10/22 23:38 Dose: 1 appln Documented By: ERIC Capsaicin (Capsaicin Cr 0.075% 60 Gm Tube) Confirm Administered Dose 180 appln EXT .STK-MED ONE Stop: 04/10/22 23:37 Last Admin: 04/10/22 23:42 Dose: Not Given Documented By: ERIC Diphenhydramine HCl (Diphenhydramine 50 Mg/Ml Vial) 25 mg IV NOW STA Stop: 04/10/22 17:51 Last Admin: 04/10/22 18:16 Dose: 25 mg Documented By: ELIE Diphenhydramine HCl (Diphenhydramine 50 Mg/Ml Vial) 25 mg IV NOW STA Stop: 04/10/22 20:28 Last Admin: 04/10/22 20:35 Dose: 25 mg Documented By: ERIC Sodium Chloride (Nss 1000ml) 1,000 mls @ 999 mls/hr IV .Q1H1M MARIO Stop: 04/10/22 19:00 Last Infusion: 04/10/22 19:36 Dose: 0 mls/hr Documented By: Admin: 04/10/22 18:34 Dose: 999 mls/hr Documented By: ELIE Acetaminophen (Ofirmev) 1,000 mg in 100 mls @ 400 mls/hr IV NOW STA Stop: 04/10/22 18:01 Last Infusion: 04/10/22 18:31 Dose: 0 mls/hr Documented By: Infusion: 04/10/22 18:31 Dose: 0 mls/hr Documented By: Admin: 04/10/22 18:16 Dose: 400 mls/hr Documented By: ELIE Pantoprazole Sodium (Protonix Bolus/Drip) 0 mls @ 1 mls/hr IV ONE STA Stop: 04/10/22 17:48 Last Infusion: 04/10/22 19:44 Dose: 0 mls/hr Documented By: Admin: 04/10/22 18:34 Dose: 1 mls/hr Documented By: ELIE Pantoprazole Sodium 80 mg/ (Dextrose) 120 mls @ 400 mls/hr IV NOW ONE Stop: 04/10/22 18:04 Last Infusion: 04/10/22 19:07 Dose: 0 mls/hr Documented By: Admin: 04/10/22 18:33 Dose: 400 mls/hr Documented By: ELIE Famotidine (Pepcid 20mg Iv Push) 20 mg in 5 mls @ 2.5 mls/min IV NOW STA Stop: 04/10/22 17:48 Last Admin: 04/10/22 18:15 Dose: 2.5 mls/min Documented By: ELIE Phytonadione 5 mg/ Dextrose 50.5 mls @ 101 mls/hr IV ONE ONE Stop: 04/10/22 20:47 Last Infusion: 04/10/22 22:07 Dose: 0 mls/hr Documented By: Admin: 04/10/22 21:15 Dose: 101 mls/hr Documented By: ERIC Prochlorperazine (Compazine) 2 mls @ 1 mls/min IV ONE ONE Stop: 04/10/22 20:28 Last Admin: 04/10/22 20:34 Dose: 1 mls/min Documented By: ERIC Sodium Chloride (Nss 1000ml) 1,000 mls @ 999 mls/hr IV .Q1H1M ONE Stop: 04/10/22 21:27 Last Infusion: 04/10/22 22:26 Dose: 0 mls/hr Documented By: Admin: 04/10/22 20:35 Dose: 999 mls/hr Documented By: ERIC Phytonadione 5 mg/ Dextrose 50.5 mls @ 101 mls/hr IV ONE ONE Stop: 04/10/22 21:53 Last Infusion: 04/10/22 22:45 Dose: 0 mls/hr Documented By: Admin: 04/10/22 22:08 Dose: 101 mls/hr Documented By: ERIC Ioversol (Optiray 350 100ml) 87 ml IV ONCE ONE Stop: 04/10/22 19:31 Last Admin: 04/10/22 19:31 Dose: 87 ml Documented By: CLARK Metoclopramide HCl (Metoclopramide Hcl Inj 5 Mg/Ml 2 Ml Vial) 10 mg IV NOW STA Stop: 04/10/22 17:48 Last Admin: 04/10/22 18:15 Dose: 10 mg Documented By: ELIE Imaging Data Radiologist's Impression: Abdomen/Pelvis CT 04/10/22 17:45 CT SCAN OF THE CHEST, ABDOMEN, AND PELVIS WITH IV CONTRAST CLINICAL HISTORY: Atypical chest pain. Nausea and vomiting. Hematemesis. COMPARISON STUDY: CT scan of the chest, abdomen, and pelvis dated 01/23/2022. TECHNIQUE: Following the IV administration of 87 of Optiray 350, CT scan of the chest, abdomen, and pelvis was performed from the thoracic inlet to the proximal femora. Images are reviewed in the axial, sagittal, and coronal planes. IV contrast was administered without complication. A dose lowering technique was utilized adhering to the principles of ALARA. The examinations are degraded by m otion artifact. CT DOSE: 1203.42 mGy.cm FINDINGS: CHEST: Thyroid: Imaged portions of the thyroid gland are normal in size and attenuation. Thoracic aorta: The thoracic aorta is normal in caliber and demonstrates standard 3-vessel arch anatomy. No dissection is seen. Pulmonary vasculature: The pulmonary trunk is normal in caliber. There are no filling defects identified in the central pulmonary vessels to indicate pulmonary embolus. Note that this examination was not protocoled for evaluation of the pulmonary arteries. Heart: The heart is normal in size and without pericardial effusion. There are scattered coronary artery calcifications. Lungs and pleural spaces: Evaluation of the lung parenchyma is compromised by motion artifact. There is no airspace consolidation or pleural effusion. The trachea and central airways appear clear. Mediastinum: There is no mediastinal lymphadenopathy. Angelica: Clear. Axillae: There is no axillary lymphadenopathy. Bony thorax: There is a mild chronic superior endplate compression deformity of T4. No lytic or blastic lesions are identified. Arthritic change is noted in the shoulders. ABDOMEN AND PELVIS: Liver: The contrast-enhanced liver is normal in size, contour, and attenuation. There is no intrahepatic biliary ductal dilatation. The hepatic veins and portal veins are patent. Gallbladder: Unremarkable. Spleen: Normal in size and attenuation. Pancreas: Unremarkable. Adrenal glands: Unremarkable. Kidneys: The contrast enhanced kidneys are normal in size and without hydronephrosis. The kidneys enhance symmetrically. Abdominal vasculature: The abdominal aorta is normal in course and caliber. Bowel: There is no bowel obstruction. The appendix is well-visualized and normal. Peritoneum: There is no intraperitoneal free air or abdominal ascites. There is a small fat-containing umbilical hernia. Lymphadenopathy: None. Pelvic viscera: The bladder, prostate, and seminal vesicles are normal as visualized. Calcification of the penile tunica suggests Peyronie's. Skeletal structures: No lytic or blastic lesions are seen. IMPRESSION: 1. Motion compromised examinations. 2. No acute cardiopulmonary abnormality. 3. No acute infectious or inflammatory findings are seen in the abdomen or pelvis. 4. Additional findings as above. ACT 112: Negative or not required by law. Electronically signed by: Hunter Freitas M.D. 04/10/2022 7:50 PM Chest X-Ray 04/10/22 17:45 SINGLE VIEW CHEST CLINICAL HISTORY: Nausea and vomiting. FINDINGS: An AP, portable, upright chest radiograph is compared to chest x-ray and chest CT dated 01/23/2022. The cardiomediastinal silhouette is unremarkable. The lungs and pleural spaces are clear. No pneumothorax is seen. The bony thorax is grossly intact. IMPRESSION: No active disease in the chest. ACT 112: Negative or not required by law. Electronically signed by: Hunter Freitas M.D. 04/10/2022 7:[address] 04/10/22 17:47 CT SCAN OF THE CHEST, ABDOMEN, AND PELVIS WITH IV CONTRAST CLINICAL HISTORY: Atypical chest pain. Nausea and vomiting. Hematemesis. COMPARISON STUDY: CT scan of the chest, abdomen, and pelvis dated 01/23/2022. TECHNIQUE: Following the IV administration of 87 of Optiray 350, CT scan of the chest, abdomen, and pelvis was performed from the thoracic inlet to the proximal femora. Images are reviewed in the axial, sagittal, and coronal planes. IV contrast was administered without complication. A dose lowering technique was utilized adhering to the principles of ALARA. The examinations are degraded by motion artifact. CT DOSE: 1203.42 mGy.cm FINDINGS: CHEST: Thyroid: Imaged portions of the thyroid gland are normal in size and attenuation. Thoracic aorta: The thoracic aorta is normal in caliber and demonstrates standard 3-vessel arch anatomy. No dissection is seen. Pulmonary vasculature: The pulmonary trunk is normal in caliber. There are no filling defects identified in the central pulmonary vessels to indicate pulmonary embolus. Note that this examination was not protocoled for evaluation of the pulmonary arteries. Heart: The heart is normal in size and without pericardial effusion. There are scattered coronary artery calcifications. Lungs and pleural spaces: Evaluation of the lung parenchyma is compromised by motion artifact. There is no airspace consolidation or pleural effusion. The trachea and central airways appear clear. Mediastinum: There is no mediastinal lymphadenopathy. Angelica: Clear. Axillae: There is no axillary lymphadenopathy. Bony thorax: There is a mild chronic superior endplate compression deformity of T4. No lytic or blastic lesions are identified. Arthritic change is noted in the shoulders. ABDOMEN AND PELVIS: Liver: The contrast-enhanced liver is normal in size, contour, and attenuation. There is no intrahepatic biliary ductal dilatation. The hepatic veins and portal veins are patent. Gallbladder: Unremarkable. Spleen: Normal in size and attenuation. Pancreas: Unremarkable. Adrenal glands: Unremarkable. Kidneys: The contrast enhanced kidneys are normal in size and without hydronephrosis. The kidneys enhance symmetrically. Abdominal vasculature: The abdominal aorta is normal in course and caliber. Bowel: There is no bowel obstruction. The appendix is well-visualized and nor mal. Peritoneum: There is no intraperitoneal free air or abdominal ascites. There is a small fat-containing umbilical hernia. Lymphadenopathy: None. Pelvic viscera: The bladder, prostate, and seminal vesicles are normal as visualized. Calcification of the penile tunica suggests Peyronie's. Skeletal structures: No lytic or blastic lesions are seen. IMPRESSION: 1. Motion compromised examinations. 2. No acute cardiopulmonary abnormality. 3. No acute infectious or inflammatory findings are seen in the abdomen or pelvis. 4. Additional findings as above. ACT 112: Negative or not required by law. Electronically signed by: Hunter Freitas M.D. 04/10/2022 7:50 PM Discharge Plan Visit Data Chief Complaint: Vomiting Stated Complaint: Hematemesis ED Provider: Prabhakar Cardenas Discharge Problem: Intractable nausea and vomiting, Hematemesis, Elevated INR Patient Disposition: Admitted As Inpatient Discharge Instructions Interventions: ED Discharge Assessment Last Done: 04/11/22 00:25
[2022-04-11] MEDS: ONDANSETRON INJ 2 MG/ML 2 ML VIAL IV PRN ×4 (01:05→20:50)
[2022-04-11] MEDS: INSULIN ASPART PER UNIT SC SCH ×4 (01:12→17:54)
[2022-04-11 01:56] LABS: Hematocrit (blood only) 42.9 % (42.0-52.0); Hemoglobin 14.5 g/dl (14.0-18.0)
[2022-04-11] MEDS: NSS + 20MEQ KCL 20 MEQ/1,000 ML BAG IV SCH ×2 (04:02→14:41)
[2022-04-11] MEDS: PANTOprazole 40 MG in DEXTROSE 5% 100 ML IV SCH ×3 (04:03→14:43)
--- NOTE | 2022-04-11 06:59 | Hospitalist Progress Note ---
Date of Service April 11, 2022 Assessment & Plan (1) Coagulopathy: (2) Intractable nausea and vomiting: (3) Hematemesis: (4) Elevated INR: Plan Roland is a 51-year-old male resident of [facility], with a past medical history including hypertension, hyperlipidemia, arthritis, diabetes mellitus, GERD, iron deficiency, peripheral neuropathy. He presented to the hospital and was admitted from 01/24-01/26/2022 with similar symptoms with a negative work-up at that time. His symptoms did resolve with conservative therapy.He reports vomiting blood since yesterday, after having several days of nausea and vomiting which began after his GI medications were discontinued 7 days ago in preparation of h. pylori testing. Intractable nausea and vomiting/hematemesis/GERD -Suspect that symptoms are related to PUD/reflux, possibly aggravated this past week after meds d/c in anticipation of h. pylori test -Similar presentation to admission from 01/24-01/26/2022 -Previously seen by gastroenterology, with no need for EGD at that time as symptoms are improving. May need EGD at this admission -GI consulted: appreciate recommendations -No signs of active bleed at this time, no hematemesis since arrive. Hemoglobin stable at mid 13's, will order type & screen -Continue Protonix, will switch from drip to bolus BID -Zofran did not improve symptoms significantly, added chlorpromazine IM -NPO, on maintenance fluids Hiccups -Roland notes that the hiccups became very frequent with the nausea/vomiting this week -Per chart review, he has had hiccups listed as medical problem since at least 2018- unsure if this is a recurrence or an ongoing issue -Has some decrease in hiccups with sleep -Started chlorpromazine today to hopefully increase comfort -Undetermined etiology at this time, brain mass/malignancy seems less likely etiology if symptoms have been ongoing for years Diabetes mellitus -Hold metformin, Humulin regular sliding scale, and Humulin 70/30 30 units subcu twice daily -Place on Accu-Cheks before meals and at bedtime/every 6 hours with NovoLog SSI -Question an element of gastroparesis contributing to his symptoms Coagulopathy -INR 4.0 with normal transaminases and not known to be on anticoagulation -Liver appears normal on CT -Patient did receive total of 10mg IV Vit. K since arrival, repeat INR today was 1.1. Will continue to monitor with repeat INR tomorrow. -Possible toxic ingestion which may be contributing to his coagulopathy and intractable nausea/vomiting vs. severe malnutrition/lack of Vit. K in his diet Hypertension -Hold amlodipine, aspirin and lisinopril Hyponatremia -Sodium 126, serum osmolality 265, urine osmolality 396 -Currently NPO but will continue IVF -Not on any diuretics, and unlikely excess of fluid intake due to his reported history of hematemesis and intractable nausea vomiting -Repeat BMP tomorrow a.m. -Patient has negative urine drug screen Hyperlipidemia Hold atorvastatin Peripheral neuropathy Hold gabapentin Admission and Anticipated Discharge Date Admission Date: April 10, 2022 Supervising Physician Co-Signing Physician Notes I personally examined the patient and verified all connell points of history and exam, discussed case, and agree with decision making with Dr Aguirre. Notes that Compazine helped with nausea and hiccups. He notes that really his problem seems to start with hiccups that then lead to the intractable nausea and vomiting. This has been happening off and on for yearsprobably going back 5 years give or take as an estimate. Notes that generally if the hiccups that then lead to intractable nausea and vomiting. Guards note he is even hiccuping in his sleep. He laments that every time he is seen a physician they focus on the nausea and vomiting but really he notes that the hiccups are the primary problem. Secondarily is absolutely not on Coumadin for any reason, and while he notes that his selection of vegetables is fairly limited in the [facility] system and by his teeth, he does eat what ever vegetables are on his tray each day. Vitals noted, in general he is awake and alert pleasant no distress. HEENT normocephalic atraumatic mucous membranes moist. Breathing unlabored no accessory muscle use good effort. Abdomen is soft mild epigastric tenderness. Hiccupswe will need to investigate further Intractable nausea and vomitingwould anticipate EGD to be helpful. Continue PPI Elevated INRcorrected with vitamin K. No Coumadin, and while I doubt he takes in a lot of vitamin K rich vegetables, does not sound like it is 0continue to follow INR periodically. If rises again, hematology evaluation Otherwise as above Subjective Patient was seen and examined at bedside. He states that he continues to have hiccuping and continuous nausea/vomiting. He has not had any hematemesis since arrival to the hospital, but continues to dry heave and at times vomit clear /foam. He notes some mild abdominal pain but most of his discomfort is with the hiccuping and N/V. Roland notes that [facility] will [facility] days and would like to be healthy at time of his release. Denies any shortness of breath, chest pain, fever, chills, body aches. Review of Systems Review of Systems: As per above Physical Exam Constitutional: WD/WN, vitals as above Appears in acute distress Eyes: No conjunctival abnormalities Respiratory: normal respiratory effort, lungs clear to auscultation Frequent hiccups Cardiovascular: RRR, no murmur, no edema Gastrointestinal (Abdomen): normal bowel sounds, soft, nontender, no hepatosplenomegaly Skin: no rashes, warm and dry Psychiatric: A+Ox3, euthymic affect Results & Data Results & Data ([facility]) Vital Signs (Past 12 Hours) Vital Signs Temp Pulse Pulse Resp BP BP BP 04/11/22 04:00 37.0 C 90 18 161/83 H 04/11/22 01:26 04/11/22 00:10 84 18 162/71 H 04/10/22 23:00 86 21 162/81 H 04/10/22 21:06 84 04/10/22 22:00 30 H 150/72 H 04/10/22 21:00 88 29 H 151/74 H 04/10/22 20:20 91 H 04/10/22 19:40 91 H 16 181/89 H Pulse Ox O2 Del Method 04/11/22 04:00 100 Room Air 04/11/22 01:26 Room Air 04/11/22 00:10 94 Room Air 04/10/22 23:00 04/10/22 21:06 04/10/22 22:00 04/10/22 21:00 04/10/22 20:20 100 Room Air 04/10/22 19:40 99 Room Air Resident Activity Tracking Resident Involvement: Resident Care Provided Care Provided: Adult Hospital Medicine
[2022-04-11 08:03] LABS: Albumin Globulin Ratio 1.7 (0.9-2); Albumin Level 4.3 gm/dl (3.4-5.0); BUN Creatinine Ratio 7.9 (10-20); Bilirubin,Total 1.6 mg/dl (0.2-1.0); Calcium 9.6 mg/dl (8.5-10.1); Creatinine Clr Calc Pharmacy 108.2 ml/min; Est GFR (African American) 98.7 ml/min; Est GFR (Non-African American) 85.1 ml/min; Globulin 2.5 gm/dl (2.5-4.0); Magnesium 1.8 mg/dl (1.7-2.4); Potassium 3.6 mmol/L (3.5-5.1); Total Protein 6.8 gm/dl (6.0-8.3)
[2022-04-11 08:13] LABS: INR 1.1 (0.9-1.1); Partial Thromboplastin Time 27.8 Seconds (21.0-31.0); Prothrombin Time 11.6 Seconds (9.0-12.0)
[2022-04-11 08:24] LABS: Basophils # (auto) 0.01 K/uL (0-0.2); Basophils % (auto) 0.1 %; Hematocrit (blood only) 38.5 % (42.0-52.0); Hemoglobin 13.7 g/dl (14.0-18.0); Immature Granulocytes # (auto) 0.04 K/uL (0.01-0.20); Immature Granulocytes % (auto) 0.4 %; Lymphocytes # (auto) 0.85 K/uL (1.2-3.4); Lymphocytes % (auto) 9.1 %; Mean Corpuscular Hemoglobin 26.8 pg (25.0-34.0); Mean Corpuscular Hgb Conc 35.6 g/dL (32.0-36.0); Mean Corpuscular Volume 75.3 fL (80.0-100.0); Mean Platelet Volume 9.2 fL (9.4-12.4); Monocytes # (auto) 0.52 K/uL (0.11-0.59); Monocytes % (auto) 5.6 %; Neutrophils # (auto) 7.93 K/uL (1.40-6.50); Neutrophils % (auto) 84.8 %; Platelet Count 319 K/uL (130-400); RDW Coefficient of Variation 13.9 % (11.5-14.5); Red Blood Count 5.11 M/uL (4.70-6.10); White Blood Count 9.35 K/ul (4.8-10.8)
[2022-04-11] MEDS ORDERED: chlorproMAZINE HCL 25 MG/ML AMP IM ONE (09:45)
--- NOTE | 2022-04-11 11:01 | Electrocardiogram Report ---
Test Reason : Blood Pressure : / mmHG Vent. Rate : 077 BPM Atrial Rate : 077 BPM P-R Int : 212 ms QRS Dur : 086 ms QT Int : 398 ms P-R-T Axes : 080 080 062 degrees QTc Int : 450 ms Sinus rhythm with 1st degree A-V block Otherwise normal ECG When compared with ECG of 23-JAN-2022 21:36, No significant change was found Confirmed by Cem Darby ([id number]) on 04/11/2022 11:00:58 AM Referred By: Mirna CAMPO Confirmed By:Cem Darby
[2022-04-11 13:46] LABS: Hemoglobin 13.6 g/dl (14.0-18.0)
--- NOTE | 2022-04-11 17:32 | Billing Data ---
Date of Service April 11, 2022 Coding Level of Care Code 33442 SUB INP/OBS CARE MIN
[2022-04-11] MEDS: chlorproMAZINE HCL 25 MG/ML AMP IM PRN (18:01)
[2022-04-11 19:35] LABS: Hematocrit (blood only) 35.7 % (42.0-52.0); Hemoglobin 12.3 g/dl (14.0-18.0)
[2022-04-11] MEDS: PANTOprazole 40 MG in SYRINGE 0 ML IV SCH (20:47)
[2022-04-12] MEDS: INSULIN ASPART PER UNIT SC SCH ×4 (00:14→18:30)
[2022-04-12] MEDS: NSS + 20MEQ KCL 20 MEQ/1,000 ML BAG IV SCH ×2 (03:15→17:23)
[2022-04-12] MEDS: ONDANSETRON INJ 2 MG/ML 2 ML VIAL IV PRN ×2 (03:16→17:26)
--- NOTE | 2022-04-12 07:04 | Hospitalist Progress Note ---
Date of Service April 12, 2022 Assessment & Plan (1) Coagulopathy: (2) Intractable nausea and vomiting: (3) Hematemesis: (4) Elevated INR: Plan Roland is a 51-year-old male resident of [facility], with a past medical history including hypertension, hyperlipidemia, arthritis, diabetes mellitus, GERD, iron deficiency, peripheral neuropathy. He presented to the hospital and was admitted from 01/24-01/26/2022 with similar symptoms with a negative work-up at that time. His symptoms did resolve with conservative therapy.He reports vomiting blood since yesterday, after having several days of nausea and vomiting which began after his GI medications were discontinued 7 days ago in preparation of h. pylori testing. Intractable nausea and vomiting/hematemesis/GERD -Suspect that symptoms are related to PUD/reflux, possibly aggravated this past week after meds d/c in anticipation of h. pylori test -Similar presentation to admission from 01/24-01/26/2022 -Previously seen by gastroenterology, with no need for EGD at that time as symptoms are improving. -GI consulted: does not feel he needs emergent EGD -No signs of active bleed at this time, no hematemesis since arrive. Hemoglobin stable at mid 13's -Continue Protonix 40mg BID -Zofran did not improve symptoms significantly, added chlorpromazine IM -Restarted diet with clear liquids, tolerated well at breakfast so advanced to full liquids Hiccups -Roland notes that the hiccups became very frequent with the nausea/vomiting this week -Per chart review and discussion with patient, he had an initial episode of hiccups triggering N/V back in 2018 as well -Has some decrease in hiccups with sleep -Chlorpromazine IM seems to be helping -Undetermined etiology at this time- given several episodes over several years and unable to complete EGD at this time, will complete further workup -Ordered MRI Brain and CT Neck Soft Tissues for further evaluation Diabetes mellitus -Hold metformin, Humulin regular sliding scale, and Humulin 70/30 30 units subcu twice daily -Place on Accu-Cheks before meals and at bedtime/every 6 hours with NovoLog SSI Coagulopathy -INR 4.0 with normal transaminases and not known to be on anticoagulation -Liver appears normal on CT -Patient did receive total of 10mg IV Vit. K since arrival, repeat INR yesterday was 1.1 and 1.0 today. -Toxic ingestion possible but less likely, severe malnutrition/lack of Vit. K in his diet also less likely as he states he has some veggies in his meals. -At this point suspect that lab error may be etiology. Will continue daily INR while inpatient and if INR stays in normal range, would recommend repeat INR in 2 weeks upon d/c. Hypertension -Hold amlodipine, aspirin and lisinopril Hyponatremia -Sodium 126 on admission, sodium 136 this morning -Restarted diet with clear liquids this morning -Not on any diuretics, and unlikely excess of fluid intake due to his reported history of hematemesis and intractable nausea vomiting -Seems to have resolved with IV fluids Hyperlipidemia Hold atorvastatin Peripheral neuropathy Hold gabapentin Admission and Anticipated Discharge Date Admission Date: April 10, 2022 Supervising Physician Co-Signing Physician Notes I personally examined the patient and verified all connell points of history and exam, discussed case, and agree with decision making with Dr Aguirre. Compazine continues to help hiccups pretty considerably. Tolerating clear liquids well. Would definitely like to get to the bottom of what is causing the hiccups, and reiterates yesterday's HPI that generally his hiccups started to get bad and then he starts to feel sick leading to the nausea and vomiting. Vitals noted, in general he is awake and alert pleasant no distress. HEENT normocephalic atraumatic mucous membranes moist. Breathing unlabored no accessory muscle use good effort. Skin shows no rashes no pallor or icterus.. Hiccupscertainly seems to have a low threshold to trigger hiccups, but in terms of root cause, my biggest concern would be that after review of literature, gastritis/esophagitis can be a trigger for hiccupsand in a vicious cycle, then the hiccups leading to more nausea and vomiting could easily worsen the esophagitis, further triggering the hiccups. For now, Compazine seems to be helping suppress the symptoms, can continue to use this as needed. While I have not seen it, of note in the literature there is apparently a remote possibility of permanent movement disorders much like what is known with metoclopramideso certainly if he needs this long-term would use as low as possible and with caution. Given that his hiccups have not been worked up further, have been going on with a very low trigger for probably the last 5 years, and seem to really impact his quality of life, while my biggest suspicion is gastritis/esophagitis as the trigger, or simply having a very low threshold to have them, or both; will evaluate for completeness with MRI brain and CTA of his neck. Intractable nausea and vomitingbeing off of PPI for only a week led to a resounding recurrence of his symptoms. Certainly can continue empiric treatment, and certainly agree that emergent EGD is not warranted, but would greatly appreciate EGD (even as an outpatient) in the near future given the severity of symptoms, the low trigger to lead to nausea and vomiting, the fact that he was not able to be off of PPI for very long at all before deteriorating to readmission, and the vicious cycle that may be going on between gastritis/esophagitis and his hiccupswith EGD possibly allowing for planning for more definitive treatment and follow-up of what seems to be a fairly significant problem for him. Elevated INRcorrected with vitamin K. No history of liver disease, liver appears normal on imaging, and other than a nominally elevated (likely "high normal" rather than elevated) bilirubin, no other evidence hinting towards any chronic liver disease. Not on Coumadin, and no severe dietary restrictions. It is possible that it was lab error, and the improved INR is from a recheck rather than from the influence of the vitamin K; at the same time, it is also possible that the vitamin K corrected it. Continue to trend INR periodically over the intermediate term future, and have hematology work-up if it rises again. Otherwise as above Subjective Patient was seen and examined at bedside. No acute events reported overnight. He is seated upright in bed and states he feels a bit better today. He still has some hiccups but is overall a bit improved. He notes that when he brushed his teeth this morning, he had a gag reflex which seems to at least partially trigger the hiccups. He recalls that around 2017 he had a similar episode with hiccups and nausea/vomiting that brought him to the ER- notes that his hiccups did resolve afterwards and he did not have another episode until December of 2021. He is interested in trying some liquids, popsicles, etc. today to see how he can tolerate it. Denies any shortness of breath, chest pain, fever/chills. Review of Systems Review of Systems: As per above Physical Exam Constitutional: WD/WN, vitals as above Eyes: Anicteric sclera Respiratory: normal respiratory effort, lungs clear to auscultation Cardiovascular: RRR, no murmur, no edema Gastrointestinal (Abdomen): normal bowel sounds, soft, nontender, no hepatosplenomegaly Skin: no rashes, warm and dry Psychiatric: A+Ox3, euthymic affect Results & Data Results & Data ([facility]) Vital Signs (Past 12 Hours) Vital Signs Temp Pulse Pulse Resp BP Pulse Ox O2 Del Method 04/12/22 04:00 37.1 C 74 18 165/65 H 100 Room Air 04/12/22 00:00 87 04/11/22 23:00 37.1 C 75 18 133/67 96 Room Air Resident Activity Tracking Resident Involvement: Resident Care Provided Care Provided: Adult Hospital Medicine
[2022-04-12 07:52] LABS: Basophils # (auto) 0.03 K/uL (0-0.2); Basophils % (auto) 0.4 %; Hematocrit (blood only) 36.6 % (42.0-52.0); Hemoglobin 12.7 g/dl (14.0-18.0); Immature Granulocytes # (auto) 0.02 K/uL (0.01-0.20); Immature Granulocytes % (auto) 0.3 %; Lymphocytes # (auto) 1.63 K/uL (1.2-3.4); Lymphocytes % (auto) 20.6 %; Mean Corpuscular Hgb Conc 34.7 g/dL (32.0-36.0); Mean Corpuscular Volume 77.9 fL (80.0-100.0); Mean Platelet Volume 9.2 fL (9.4-12.4); Monocytes # (auto) 0.72 K/uL (0.11-0.59); Monocytes % (auto) 9.1 %; Neutrophils # (auto) 5.51 K/uL (1.40-6.50); Neutrophils % (auto) 69.6 %; Platelet Count 269 K/uL (130-400); RDW Coefficient of Variation 14.5 % (11.5-14.5); RDW Standard Deviation 40.8 fL (36.4-46.3); White Blood Count 7.91 K/ul (4.8-10.8)
[2022-04-12 08:04] LABS: Albumin Globulin Ratio 1.7 (0.9-2); Albumin Level 4.1 gm/dl (3.4-5.0); BUN Creatinine Ratio 8.7 (10-20); Bilirubin,Total 1.3 mg/dl (0.2-1.0); Calcium 9.4 mg/dl (8.5-10.1); Creatinine Clr Calc Pharmacy 104.6 ml/min; Est GFR (African American) 95.2 ml/min; Est GFR (Non-African American) 82.2 ml/min; Globulin 2.4 gm/dl (2.5-4.0); Magnesium 1.9 mg/dl (1.7-2.4); Potassium 4.2 mmol/L (3.5-5.1); Total Protein 6.5 gm/dl (6.0-8.3)
[2022-04-12 08:23] LABS: Partial Thromboplastin Ratio 0.8
[2022-04-12] MEDS: PANTOprazole 40 MG in SYRINGE 0 ML IV SCH ×2 (09:01→20:03)
--- NOTE | 2022-04-12 09:25 | Gastrointestinal Consultation ---
Date of Consultation April 12, 2022 Assessment & Plan (1) Hematemesis: He has a history of isolated hematemesis and has had none since then. His H/H are stable. His main complaints are his hiccups. I suspect he has reflux disease and when his protonix was stopped it got bad again and the hematemesis w as related to esophagitis. Dr. Gordon saw him in January and chose not to do EGD as things resolved. I think his problems will resolve if he stays on PPI. I don't see a need to check H. pylori so I wouldn't worry about holding PPI to check it. He does not need emergent EGD. Would advance diet as tolerated. If things change then we can quickly make the decision to do EGD. I don't have any magical cures for hiccups but hopefully they will go away with treatment of reflux History of Present Illness Reason for Consultation: hematemesis Attending Physician: Tony Silva DO History of Present Illness 51 year old inmate who is admitted with hematemesis. He was admitted with similar episode in January that resolved on its own. He tells me they stopped his "protonix" two weeks ago for H. pylori testing. Since then his hiccups have returned. He also seems to have a sensitive gag reflex as he will vomit with hiccups and vomit when "brushing his tongue. Two days ago he "vomited a lot of bright red blood and coffee remnants". He has not vomited any blood since then. He has no abdominal pain. He feels like the hiccups came on again (they can be chronic for him) when his meds were stopped. Allergies Allergy/AdvReac Type Severity Reaction Status Date / Time morphine Allergy Unknown SCI MARY Verified 01/24/22 00:14 TWP LIST tomato Allergy Unknown SCI MARY Verified 01/24/22 07:29 TWP LIST Home Medications Medication Instructions Recorded Confirmed Type atorvastatin 40 mg tablet 40 mg PO DAILY 01/08/19 01/24/22 History gabapentin 600 mg tablet 600 mg PO BID 01/08/19 01/24/22 History insulin human U-100 NPH-regulr 30 unit subcut BID 01/08/19 01/24/22 History 70-30 mix 100 unit/mL subcutaneous susp (Humulin 70/30 U-100 Insulin) insulin regular human 100 unit/mL 1 sliding scale dose subcut UD 01/08/19 01/24/22 History injection solution (Humulin R Regular U-100 Insulin) amlodipine 10 mg tablet 10 mg PO DAILY 01/01/22 01/24/22 History metformin 1,000 mg tablet 1,000 mg PO BID 01/01/22 01/24/22 History acetaminophen 500 mg tablet 1,000 mg PO QID PRN as directed 01/24/22 01/24/22 History ascorbic acid (vitamin C) 500 mg 500 mg PO BIDM 01/24/22 01/24/22 History chewable tablet (Vitamin C) aspirin 81 mg tablet,delayed 81 mg PO BID 01/24/22 01/24/22 History release diclofenac sodium 1 % topical gel 1 ea topical BID 01/24/22 01/24/22 History docusate sodium 100 mg capsule 100 mg PO BID 01/24/22 01/24/22 History ferrous gluconate 324 mg (38 mg 324 mg PO BIDM 01/24/22 01/24/22 History iron) tablet ondansetron HCl 4 mg tablet 4 mg PO TID PRN as directed 01/24/22 01/24/22 History promethazine 25 mg/mL injection 25 mg IM BID PRN as directed 01/24/22 01/24/22 History solution cholecalciferol (vitamin D3) 125 5,000 unit PO QAM #30 tabs 01/26/22 Rx mcg (5,000 unit) tablet famotidine 10 mg tablet (Acid 10 mg PO BID #60 tabs 01/26/22 Rx C[employer]per (famotidine)) lisinopril 40 mg tablet 20 mg PO DAILY #15 tabs 01/26/22 01/24/22 Rx Patient History Medical History Antisocial personality disorder Diabetes mellitus, type 2 IDDM GERD (gastroesophageal reflux disease) History of COVID-19 03/11/2020 Hyperlipidemia Hypertension 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 Osteoarthritis of right knee Sleep apnea Surgical History H/O fasciotomy LEFT LEG +SKIN GRAFT Social History Smoking Status: Current some day smoker Tobacco Type: E-cigarettes / Vaping Hx Alcohol Use: No Hx Substance Use: No Preferred Language: Korean Communication Ability: Effective Emergency Management Consultant Required: No Beliefs That Will Affect Care: None Current Living Situation: Other Current Living Situation Comment: Correctional Facility Other Information That Helps Us Care for You: No Feels Safe at Home: Yes Safety Concerns: Feels Safe At This Time Assistive Devices: None Review of Systems Review of Systems: All systems reviewed & are unremarkable except as noted in HPI & below Physical Exam Constitutional: WD/WN, vitals as above no acute distress Eyes: PERRL, conjunctivae normal, anicteric sclerae ENMT: external ear and nose normal, oropharynx normal Neck: trachea midline, no thyromegaly Respiratory: normal respiratory effort, lungs clear to auscultation Cardiovascular: RRR, no murmur, no edema Gastrointestinal (Abdomen): normal bowel sounds, soft, nontender, no hepatosplenomegaly Musculoskeletal: Extremities: no cyanosis and no clubbing Skin: no rashes, warm and dry Neurologic: PERRL, EOMI, accommodation nl, no face palsy, no dysarthria Psychiatric: Orientation: alert and oriented x 3 Results & Data ([facility]) Vital Signs (Past 12 Hours) Vital Signs Temp Pulse Pulse Resp BP BP Pulse Ox 04/12/22 07:33 36.8 C 74 18 148/82 H 95 04/12/22 04:00 37.1 C 74 18 165/65 H 100 04/12/22 00:00 87 04/11/22 23:00 37.1 C 75 18 133/67 96 O2 Del Method 04/12/22 07:33 Room Air 04/12/22 04:00 Room Air 04/12/22 00:00 04/11/22 23:00 Room Air Laboratory Results Laboratory Results WBC 7.91 K/ul (4.8-10.8) 04/12/22 07:07 RBC 4.70 M/uL (4.70-6.10) 04/12/22 07:07 Hgb 12.7 g/dl (14.0-18.0) L 04/12/22 07:07 Hct 36.6 % (42.0-52.0) L 04/12/22 07:07 MCV 77.9 fL (80.0-100.0) L 04/12/22 07:07 MCH 27.0 pg (25.0-34.0) 04/12/22 07:07 MCHC 34.7 g/dL (32.0-36.0) 04/12/22 07:07 RDW Std Deviation 40.8 fL (36.4-46.3) 04/12/22 07:07 RDW Coeff of Alda 14.5 % (11.5-14.5) 04/12/22 07:07 Plt Count 269 K/uL (130-400) 04/12/22 07:07 MPV 9.2 fL (9.4-12.4) L 04/12/22 07:07 Immature Gran % (Auto) 0.3 % 04/12/22 07:07 Neut % (Auto) 69.6 % 04/12/22 07:07 Lymph % (Auto) 20.6 % 04/12/22 07:07 [place] % (Auto) 9.1 % 04/12/22 07:07 Eos % (Auto) 0.0 % 04/12/22 07:07 Baso % (Auto) 0.4 % 04/12/22 07:07 Neut # (Auto) 5.51 K/uL (1.40-6.50) 04/12/22 07:07 Lymph # (Auto) 1.63 K/uL (1.2-3.4) 04/12/22 07:07 [place] # (Auto) 0.72 K/uL (0.11-0.59) H 04/12/22 07:07 Eos # (Auto) 0.00 K/uL (0-0.50) 04/12/22 07:07 Baso # (Auto) 0.03 K/uL (0-0.2) 04/12/22 07:07 Immature Gran # (Auto) 0.02 K/uL (0.01-0.20) 04/12/22 07:07 PT 11.0 Seconds (9.0-12.0) 04/12/22 07:07 INR 1.0 (0.9-1.1) 04/12/22 07:07 APTT 22.0 Seconds (21.0-31.0) 04/12/22 07:07 PTT Ratio 0.8 04/12/22 07:07 Sodium 136 mmol/L (136-145) 04/12/22 07:07 Potassium 4.2 mmol/L (3.5-5.1) 04/12/22 07:07 Chloride 104 mmol/L (98-107) 04/12/22 07:07 Carbon Dioxide 26 mmol/L (21-32) 04/12/22 07:07 Anion Gap 6 (3-11) 04/12/22 07:07 BUN 9 mg/dl (6-23) 04/12/22 07:07 Creatinine 1.04 mg/dl (0.6-1.4) 04/12/22 07:07 Est Cr Clr Drug Dosing 104.6 ml/min 04/12/22 07:07 Est GFR ( Amer) 95.2 ml/min 04/12/22 07:07 Est GFR (Non-Af Amer) 82.2 ml/min 04/12/22 07:07 BUN/Creatinine Ratio 8.7 (10-20) L 04/12/22 07:07 Glucose 128 mg/dl (70-99(Fasting)) H 04/12/22 07:07 POC Glucose 125 mg/dl (70-99) H 04/12/22 06:06 Osmolality 265 mOsm/kg (280-300) L 04/10/22 17:13 Calcium 9.4 mg/dl (8.5-10.1) 04/12/22 07:07 Magnesium 1.9 mg/dl (1.7-2.4) 04/12/22 07:07 Total Bilirubin 1.3 mg/dl (0.2-1.0) H 04/12/22 07:07 Direct Bilirubin 0.4 mg/dl (0-0.2) H 04/10/22 17:19 AST 18 U/L (13-39) 04/12/22 07:07 ALT 11 U/L (7-52) 04/12/22 07:07 Alkaline Phosphatase 58 U/L (34-104) 04/12/22 07:07 Total Protein 6.5 gm/dl (6.0-8.3) 04/12/22 07:07 Albumin 4.1 gm/dl (3.4-5.0) 04/12/22 07:07 Globulin 2.4 gm/dl (2.5-4.0) L 04/12/22 07:07 Albumin/Globulin Ratio 1.7 (0.9-2) 04/12/22 07:07 Lipase 6 U/L (11-82) L 04/10/22 17:19 Urine Osmolality 396 mOsm/kg (500-800) L 04/10/22 20:40 Ur Random Sodium 58 mmol/L 04/10/22 20:40 Nasal Screen MRSA (PCR) Negative (Negative) 04/11/22 00:07 Urine Opiates Screen Neg (Neg) 04/10/22 20:44 Ur Methadone, Qual Neg (Neg) 04/10/22 20:44 Urine Barbiturates Neg (Neg) 04/10/22 20:44 Ur Phencyclidine (PCP) Neg (Neg) 04/10/22 20:44 U Amphetamin/Meth Scrn Neg (Neg) 04/10/22 20:44 MDMA (Ecstasy) Screen Neg (Neg) 04/10/22 20:44 U Benzodiazepines Scrn Neg (Neg) 04/10/22 20:44 Ur Cocaine Metabolite Neg (Neg) 04/10/22 20:44 U Marijuana (THC) Screen Neg (Neg) 04/10/22 20:44 SARS-CoV-2, RNA, NAAT NEGATIVE (NEGATIVE) 04/10/22 21:19 Blood Type O Positive 04/10/22 17:13 Antibody Screen NEGATIVE 04/10/22 17:13 Impressions Abdomen/Pelvis CT 04/10/22 17:45 CT SCAN OF THE CHEST, ABDOMEN, AND PELVIS WITH IV CONTRAST CLINICAL HISTORY: Atypical chest pain. Nausea and vomiting. Hematemesis. COMPARISON STUDY: CT scan of the chest, abdomen, and pelvis dated 01/23/2022. TECHNIQUE: Following the IV administration of 87 of Optiray 350, CT scan of the chest, abdomen, and pelvis was performed from the thoracic inlet to the proximal femora. Images are reviewed in the axial, sagittal, and coronal planes. IV contrast was administered without complication. A dose lowering technique was utilized adhering to the principles of ALARA. The examinations are degraded by motion artifact. CT DOSE: 1203.42 mGy.cm FINDINGS: CHEST: Thyroid: Imaged portions of the thyroid gland are normal in size and attenuation. Thoracic aorta: The thoracic aorta is normal in caliber and demonstrates standard 3-vessel arch anatomy. No dissection is seen. Pulmonary vasculature: The pulmonary trunk is normal in caliber. There are no filling defects identified in the central pulmonary vessels to indicate pulmonary embolus. Note that this examination was not protocoled for evaluation of the pulmonary arteries. Heart: The heart is normal in size and without pericardial effusion. There are scattered coronary artery calcifications. Lungs and pleural spaces: Evaluation of the lung parenchyma is compromised by motion artifact. There is no airspace consolidation or pleural effusion. The trachea and central airways appear clear. Mediastinum: There is no mediastinal lymphadenopathy. Angelica: Clear. Axillae: There is no axillary lymphadenopathy. Bony thorax: There is a mild chronic superior endplate compression deformity of T4. No lytic or blastic lesions are identified. Arthritic change is noted in the shoulders. ABDOMEN AND PELVIS: Liver: The contrast-enhanced liver is normal in size, contour, and attenuation. There is no intrahepatic biliary ductal dilatation. The hepatic veins and portal veins are patent. Gallbladder: Unremarkable. Spleen: Normal in size and attenuation. Pancreas: Unremarkable. Adrenal glands: Unremarkable. Kidneys: The contrast enhanced kidneys are normal in size and without hydronephrosis. The kidneys enhance symmetrically. Abdominal vasculature: The abdominal aorta is normal in course and caliber. Bowel: There is no bowel obstruction. The appendix is well-visualized and normal. Peritoneum: There is no intraperitoneal free air or abdominal ascites. There is a small fat-containing umbilical hernia. Lymphadenopathy: None. Pelvic viscera: The bladder, prostate, and seminal vesicles are normal as visualized. Calcification of the penile tunica suggests Peyronie's. Skeletal structures: No lytic or blastic lesions are seen. IMPRESSION: 1. Motion compromised examinations. 2. No acute cardiopulmonary abnormality. 3. No acute infectious or inflammatory findings are seen in the abdomen or pelvis. 4. Additional findings as above. ACT 112: Negative or not required by law. Electronically signed by: Hunter Freitas M.D. 04/10/2022 7:50 PM Chest X-Ray 04/10/22 17:45 SINGLE VIEW CHEST CLINICAL HISTORY: Nausea and vomiting. FINDINGS: An AP, portable, upright chest radiograph is compared to chest x-ray and chest CT dated 01/23/2022. The cardiomediastinal silhouette is unremarkable. The lungs and pleural spaces are clear. No pneumothorax is seen. The bony thorax is grossly intact. IMPRESSION: No active disease in the chest. ACT 112: Negative or not required by law. Electronically signed by: Hunter Freitas M.D. 04/10/2022 7:[address] 04/10/22 17:47 CT SCAN OF THE CHEST, ABDOMEN, AND PELVIS WITH IV CONTRAST CLINICAL HISTORY: Atypical chest pain. Nausea and vomiting. Hematemesis. COMPARISON STUDY: CT scan of the chest, abdomen, and pelvis dated 01/23/2022. TECHNIQUE: Following the IV administration of 87 of Optiray 350, CT scan of the chest, abdomen, and pelvis was performed from the thoracic inlet to the proximal femora. Images are reviewed in the axial, sagittal, and coronal planes. IV contrast was administered without complication. A dose lowering technique was utilized adhering to the principles of ALARA. The examinations are degraded by motion artifact. CT DOSE: 1203.42 mGy.cm FINDINGS: CHEST: Thyroid: Imaged portions of the thyroid gland are normal in size and attenuation. Thoracic aorta: The thoracic aorta is normal in caliber and demonstrates standard 3-vessel arch anatomy. No dissection is seen. Pulmonary vasculature: The pulmonary trunk is normal in caliber. There are no filling defects identified in the central pulmonary vessels to indicate pulmonary embolus. Note that this examination was not protocoled for evaluation of the pulmonary arteries. Heart: The heart is normal in size and without pericardial effusion. There are scattered coronary artery calcifications. Lungs and pleural spaces: Evaluation of the lung parenchyma is compromised by motion artifact. There is no airspace consolidation or pleural effusion. The trachea and central airways appear clear. Mediastinum: There is no mediastinal lymphadenopathy. Angelica: Clear. Axillae: There is no axillary lymphadenopathy. Bony thorax: There is a mild chronic superior endplate compression deformity of T4. No lytic or blastic lesions are identified. Arthritic change is noted in the shoulders. ABDOMEN AND PELVIS: Liver: The contrast-enhanced liver is normal in size, contour, and attenuation. There is no intrahepatic biliary ductal dilatation. The hepatic veins and portal veins are patent. Gallbladder: Unremarkable. Spleen: Normal in size and attenuation. Pancreas: Unremarkable. Adrenal glands: Unremarkable. Kidneys: The contrast enhanced kidneys are normal in size and without hydronephrosis. The kidneys enhance symmetrically. Abdominal vasculature: The abdominal aorta is normal in course and caliber. Bowel: There is no bowel obstruction. The appendix is well-visualized and normal. Peritoneum: There is no intraperitoneal free air or abdominal ascites. There is a small fat-containing umbilical hernia. Lymphadenopathy: None. Pelvic viscera: The bladder, prostate, and seminal vesicles are normal as visualized. Calcification of the penile tunica suggests Peyronie's. Skeletal structures: No lytic or blastic lesions are seen.
[2022-04-12] MEDS: chlorproMAZINE HCL 25 MG/ML AMP IM PRN ×2 (09:48→17:26)
--- NOTE | 2022-04-12 14:23 | Billing Data ---
Date of Service April 12, 2022 Coding Level of Care Code 83209 SUB INP/OBS CARE MIN
--- NOTE | 2022-04-12 17:29 | Magnetic Resonance Report ---
MRI OF THE BRAIN WITHOUT IV CONTRAST CLINICAL HISTORY: Intractable hiccups. COMPARISON STUDY: No priors. TECHNIQUE: MRI of the brain was performed utilizing various T1 and T2-weighted sequences in the axial , sagittal, and coronal planes. IV contrast was not administered for this examination. The examinatio n is modestly degraded by motion artifact. FINDINGS: Brain parenchyma: The brain parenchyma is normal in appearance. There is no hemorrhage or mass effect . There is no restricted diffusion to suggest acute ischemia. Brennan-white matter differentiation is pr eserved. Mineralization is noted in the basal ganglia. No extra-axial fluid collection is seen. The c erebellar tonsils are normal in configuration. Ventricles, sulci, and cisterns: Normal in configuration. Cavum septum pellucidum is incidentally not ed. Pituitary and sella: Unremarkable. Intracranial vasculature: Normal flow voids are maintained at the skull base. Orbits: The bony orbits are grossly intact. Orbital contents are normal in appearance. Sinuses and mastoids: Clear. Calvarium: Unremarkable. Cervical cord: Partially visualized cervical spinal cord is normal in morphology and signal intensity . IMPRESSION: No intracranial abnormality is identified. ACT 112: Negative or not required by law. Electronically signed by: Hunter Freitas M.D. 04/12/2022 5:28 PM
--- NOTE | 2022-04-12 18:26 | CT Scan Report ---
CT SCAN OF THE NECK WITHOUT IV CONTRAST CLINICAL HISTORY: Intractable hiccups. Vomiting COMPARISON STUDY: No priors. TECHNIQUE: Unenhanced CT scan of the soft tissues of the neck was performed from the skull base to th e upper chest. Images are reviewed in the axial, sagittal, and coronal planes. IV contrast was not a dministered for this examination. Note that the examination is significant suboptimal without IV cont rast. A dose lowering technique was utilized adhering to the principles of ALARA. CT DOSE: 746.38 mGy.cm FINDINGS: Pharynx: The unenhanced pharyngeal soft tissues are grossly unremarkable. Layering secretions are not ed in the pharynx. The pharyngeal airway is widely patent. There is no evidence of mass lesion. The v ocal cords are symmetric. The parapharyngeal fat is well maintained. The prevertebral/retropharyngeal soft tissues are within normal limits. The epiglottis is normal. Lymphadenopathy: No cervical lymphadenopathy is seen. Thyroid: Normal in size and attenuation. Salivary glands: The parotid and submandibular glands are within normal limits. Brain parenchyma: The visualized brain parenchyma at the skull base is normal in appearance. Skeletal structures: Imaged portions of the calvarium at the skull base are within normal limits. The cervical spine appears intact. No lytic or blastic lesion is seen. Sinuses and mastoids: There is trace mucosal thickening within the frontal, ethmoid, and sphenoid sin uses. The mastoid air cells are well pneumatized. Orbits: The bony orbits are grossly intact. Orbital contents are normal as visualized. Lung apices: Visualized apical lung parenchyma is clear. IMPRESSION: No acute abnormality is identified on this unenhanced examination. ACT 112: Negative or not required by law. Electronically signed by: Hunter Freitas M.D. 04/12/2022 6:24 PM
[2022-04-13] MEDS: NSS + 20MEQ KCL 20 MEQ/1,000 ML BAG IV SCH ×2 (05:14→18:30)
[2022-04-13 06:35] LABS: Albumin Globulin Ratio 1.7 (0.9-2); Bilirubin,Total 1.1 mg/dl (0.2-1.0); Calcium 9.4 mg/dl (8.5-10.1); Creatinine Clr Calc Pharmacy 108.8 ml/min; Est GFR (African American) 99.8 ml/min; Est GFR (Non-African American) 86.2 ml/min; Globulin 2.4 gm/dl (2.5-4.0); Magnesium 1.9 mg/dl (1.7-2.4); Potassium 4.2 mmol/L (3.5-5.1); Total Protein 6.4 gm/dl (6.0-8.3)
[2022-04-13 06:37] LABS: Basophils # (auto) 0.03 K/uL (0-0.2); Basophils % (auto) 0.4 %; Eosinophils # (auto) 0.02 K/uL (0-0.50); Eosinophils % (auto) 0.3 %; Hematocrit (blood only) 37.2 % (42.0-52.0); Hemoglobin 12.8 g/dl (14.0-18.0); Immature Granulocytes # (auto) 0.01 K/uL (0.01-0.20); Immature Granulocytes % (auto) 0.1 %; Lymphocytes # (auto) 1.21 K/uL (1.2-3.4); Lymphocytes % (auto) 16.9 %; Mean Corpuscular Hgb Conc 34.4 g/dL (32.0-36.0); Mean Corpuscular Volume 78.5 fL (80.0-100.0); Monocytes # (auto) 0.53 K/uL (0.11-0.59); Monocytes % (auto) 7.4 %; Neutrophils # (auto) 5.38 K/uL (1.40-6.50); Neutrophils % (auto) 74.9 %; Platelet Count 253 K/uL (130-400); RDW Coefficient of Variation 14.6 % (11.5-14.5); RDW Standard Deviation 41.8 fL (36.4-46.3); Red Blood Count 4.74 M/uL (4.70-6.10); White Blood Count 7.18 K/ul (4.8-10.8)
[2022-04-13 06:45] LABS: INR 1.1 (0.9-1.1); Partial Thromboplastin Ratio 0.9; Partial Thromboplastin Time 25.1 Seconds (21.0-31.0); Prothrombin Time 11.3 Seconds (9.0-12.0)
--- NOTE | 2022-04-13 07:14 | Hospitalist Progress Note ---
Date of Service April 13, 2022 Assessment & Plan (1) Coagulopathy: (2) Intractable nausea and vomiting: (3) Hematemesis: (4) Elevated INR: Plan Roland is a 51-year-old male resident of [facility], with a past medical history including hypertension, hyperlipidemia, arthritis, diabetes mellitus, GERD, iron deficiency, peripheral neuropathy. He presented to the hospital and was admitted from 01/24-01/26/2022 with similar symptoms with a negative work-up at that time. His symptoms did resolve with conservative therapy.He reports vomiting blood since yesterday, after having several days of nausea and vomiting which began after his GI medications were discontinued 7 days ago in preparation of h. pylori testing. Intractable nausea and vomiting/hematemesis/GERD -Suspect that symptoms are related to PUD/reflux, possibly aggravated this past week after meds d/c in anticipation of h. pylori test -Similar presentation to admission from 01/24-01/26/2022 -Previously seen by gastroenterology, with no need for EGD at that time as symptoms are improving. -GI consulted: does not feel he needs emergent EGD -No signs of active bleed at this time, no hematemesis since arrive. Hemoglobin stable at mid 13's -Continue Protonix 40mg BID -Zofran did not improve symptoms significantly, added chlorpromazine IM - Addition of Famotidine 20 mg daily 4pm -Tolerating liquid diet, advanced to normal diet Hiccups -Roland notes that the hiccups became very frequent with the nausea/vomiting this week -Per chart review and discussion with patient, he had an initial episode of hiccups triggering N/V back in 2018 as well -Has some decrease in hiccups with sleep -Chlorpromazine IM seems to be helping -Undetermined etiology at this time- given several episodes over several years and unable to complete EGD at this time, further workup (MRI brain and CT neck both negatvie) Diabetes mellitus -Hold metformin, Humulin regular sliding scale, and Humulin 70/30 30 units subcu twice daily -Place on Accu-Cheks before meals and at bedtime/every 6 hours with NovoLog SSI Coagulopathy -INR 4.0 with normal transaminases and not known to be on anticoagulation -Liver appears normal on CT -Patient did receive total of 10mg IV Vit. K since arrival, repeat INR yesterday was 1.1 and 1.0 today. -Toxic ingestion possible but less likely, severe malnutrition/lack of Vit. K in his diet also less likely as he states he has some veggies in his meals. -At this point suspect that lab error may be etiology. Will continue daily INR while inpatient and if INR stays in normal range, would recommend repeat INR in 2 weeks upon d/c. Hypertension -Hold amlodipine, aspirin and lisinopril Hyponatremia -Sodium 126 on admission, sodium 137 this morning -Restarted diet with clear liquids this morning -Not on any diuretics, and unlikely excess of fluid intake due to his reported history of hematemesis and intractable nausea vomiting -Seems to have resolved with IV fluids, NSS +20 meq KCl 80 mls/hr Hyperlipidemia -Hold atorvastatin Peripheral neuropathy -Hold gabapentin Code: Full Diet: Regular DVT ppx: SCDs Disp: Med/Tele Admission and Anticipated Discharge Date Admission Date: April 10, 2022 Supervising Physician Co-Signing Physician Notes Attending attestation Pt seen and examined in concert with Dr. Mariano, St. Dr. Huang. In agreement with the documented findings as noted in the resident documentation with any exceptions or additions as noted here. Continued gradual improvement in n/v and decreased frequency of hiccups. Symptoms predominantly with compression of abdomen (bending, twisting) and decreased overall from admssion. Reports no diarrhea/constipation, HUGHES, fever, CP/SOB, palpitations. On examination, S1/S2 nl RRR no MCG. CTAB. Abd NT/ND BS+ve GERD/gastritis - tolerating full liquids well with some exacerbation of sx overall at night - continue PPI, add evening famotidine in an effort to moderate symptoms. Counseling and expectation setting provided. Advance diet to full, monitor and dispo tomorrow. Consider carafate in addition if further ppx is needed. Hiccups - very likely primary fence post driver is the gastritis and improvement should be found there. Can continue chlorpromazine with continued benefit. HTN - mild elevation today, would consider restarting lisinopril in AM if continues Else see resident/student documentation as noted. Subjective Roland Freeman is a 51-year-old male with a past medical history including hypertension, hyperlipidemia, arthritis, diabetes mellitus, GERD, iron deficiency, peripheral neuropathy. He is on hospital day 3 for intractable nausea/vomiting and reported hematemesis . He feels about the same as on a dmission and expresses frustration with lack of meaningful results per workup up to this point. He notes these symptoms have occurred off and on for years and endoscopy outpatient showed no results. Since hospitalization in December, these symptoms have occurred almost daily and severely worsened this week with holding of his GI meds for H pylori workup. After several days of vomiting prior to adm ission, he reports blood in vis vomit. The hiccups trigger nausea and vomiting, and are worsened when he sits up. Chlorpromazine has helped with the hiccups. Reports epigastric discomfort, no BM since admission. Tolerating liquid diet. Review of Systems Review of Systems: see HPI Physical Exam Constitutional: WD/WN, vitals as above Eyes: Anicteric sclera Respiratory: normal respiratory effort, lungs clear to auscultation Cardiovascular: RRR, no murmur, no edema Gastrointestinal (Abdomen): normal bowel sounds, soft, nontender, no hepatosplenomegaly +Voluntary gaurding Skin: no rashes, warm and dry Psychiatric: A+Ox3, euthymic affect Results & Data Results & Data ([facility]) Vital Signs (Past 12 Hours) Vital Signs Temp Pulse Pulse Resp BP Pulse Ox O2 Del Method 04/13/22 04:21 37.1 C 71 19 164/92 H 98 Room Air 04/12/22 22:02 70 04/12/22 23:11 37.0 C 78 18 160/88 H 98 Room Air Laboratory Results 04/13/22 05:52 04/13/22 05:52
[2022-04-13] MEDS: PANTOprazole 40 MG in SYRINGE 0 ML IV SCH ×2 (08:52→21:18)
[2022-04-13] MEDS: INSULIN ASPART PER UNIT SC SCH ×4 (08:57→21:17)
[2022-04-13] MEDS: FAMOTIDINE 20 MG TAB PO SCH (17:46)
[2022-04-14] MEDS: NSS + 20MEQ KCL 20 MEQ/1,000 ML BAG IV SCH (04:33)
[2022-04-14 07:26] LABS: Basophils # (auto) 0.04 K/uL (0-0.2); Basophils % (auto) 0.5 %; Eosinophils # (auto) 0.08 K/uL (0-0.50); Eosinophils % (auto) 1.1 %; Hematocrit (blood only) 38.9 % (42.0-52.0); Hemoglobin 13.1 g/dl (14.0-18.0); Immature Granulocytes # (auto) 0.01 K/uL (0.01-0.20); Immature Granulocytes % (auto) 0.1 %; Lymphocytes # (auto) 1.47 K/uL (1.2-3.4); Lymphocytes % (auto) 19.5 %; Mean Corpuscular Hemoglobin 26.7 pg (25.0-34.0); Mean Corpuscular Hgb Conc 33.7 g/dL (32.0-36.0); Mean Corpuscular Volume 79.4 fL (80.0-100.0); Mean Platelet Volume 8.8 fL (9.4-12.4); Monocytes # (auto) 0.48 K/uL (0.11-0.59); Monocytes % (auto) 6.4 %; Neutrophils # (auto) 5.47 K/uL (1.40-6.50); Neutrophils % (auto) 72.4 %; Platelet Count 267 K/uL (130-400); RDW Coefficient of Variation 14.5 % (11.5-14.5); White Blood Count 7.55 K/ul (4.8-10.8)
[2022-04-14 07:43] LABS: Albumin Globulin Ratio 1.6 (0.9-2); Albumin Level 4.1 gm/dl (3.4-5.0); BUN Creatinine Ratio 5.3 (10-20); Bilirubin,Total 1.1 mg/dl (0.2-1.0); Calcium 9.6 mg/dl (8.5-10.1); Creatinine Clr Calc Pharmacy 115.1 ml/min; Est GFR (African American) 106.2 ml/min; Est GFR (Non-African American) 91.7 ml/min; Globulin 2.5 gm/dl (2.5-4.0); Magnesium 1.8 mg/dl (1.7-2.4); Potassium 4.3 mmol/L (3.5-5.1); Total Protein 6.6 gm/dl (6.0-8.3)
[2022-04-14 07:49] LABS: INR 1.1 (0.9-1.1); Partial Thromboplastin Ratio 0.9; Partial Thromboplastin Time 25.9 Seconds (21.0-31.0); Prothrombin Time 11.2 Seconds (9.0-12.0)
[2022-04-14] MEDS ORDERED: PANTOprazole 40 MG TAB PO SCH (09:00)
[2022-04-14] MEDS: INSULIN ASPART PER UNIT SC SCH ×3 (09:25→17:05)
--- NOTE | 2022-04-14 11:01 | Discharge Summary ---
Date of Service April 14, 2022 Admission HPI Per Admitting Provider The patient is a 51-year-old male resident of [facility], with a past medical history including hypertension, hyperlipidemia, arthritis, diabetes mellitus, GERD, iron deficiency, peripheral neuropathy. He presented to the hospital and was admitted from 01/24-01/26/2022 with similar symptoms with a negative work-up at that time. His symptoms did resolve with conservative therapy. It is difficult to obtain a history from him in the emergency department this evening, but he reports vomiting blood since yesterday, after having several days of nausea and vomiting. He reports that this episode is similar to the one in January. Significant abnormal laboratories: INR 4.0, calcium 10.5, total bilirubin 1.8, direct bilirubin 0.4, sodium 126, creatinine 1.22, glucose 142, serum osmolality 265, urine osmolality 396 Admission Exam Per Admitting Provider The patient is awake, alert and oriented 3, well developed and well nourished, normocephalic and atraumatic, lying in bed and in no acute distress. HEENT--PERRL, EOMI, mucous membranes and oropharynx dry. Neck--supple. No JVD. No bruits. Thyroid normal, trachea midline, no adenopath y. Heart--normal S1 and S2. No murmurs, rubs or gallops. Lungs--clear bilaterally, no respiratory distress, no accessory muscle use. Abdomen--normal bowel sounds and soft. Nontender. Nondistended. Mildly obese Extremities--no cyanosis or clubbing. No edema. Dermatologic--normal skin turgor, normal color, no abnormal lymph nodes, no rash. Neurologic--cranial nerves II through XII grossly intact. Rheumatologic--normal range of motion. Psychiatric--normal affect. Principal Diagnosis GERD Discharge Exam Constitutional: well-appearing, no acute distress HEENT: NCAT, no conjunctival injection CV: regular rhythm, no murmur appreciated, extremities well-perfused, no LE edema Resp: CTABL, no wheezes/rales/rhonchi appreciated, no increased work of breathing GI: soft, nondistended, nontender, BS normoactive MSK: no gross deformities appreciated Skin: warm, dry, no rash appreciated Discharge Data Allergies Allergy/AdvReac Type Severity Reaction Status Date / Time morphine Allergy Unknown JAHAIRA HERNANDEZ Verified 01/24/22 00:14 TWP LIST tomato Allergy Unknown SCI MARY Verified 01/24/22 07:29 TWP LIST Consultations 04/10/22 21:11 ED Decision to Admit Stat 04/11/22 12:17 Consult Physician Routine Ordered Studies 04/10/22 17:45 CT abd pelvis IV con only Stat 04/10/22 17:47 CT chest diagnostic w con Stat 04/12/22 12:11 MRI Brain [MR brain wo con] Routine 04/12/22 12:15 CT neck soft tissues [CT soft tissue neck wo con] Routine Laboratory Results WBC 7.55 K/ul (4.8-10.8) 04/14/22 06:58 RBC 4.90 M/uL (4.70-6.10) 04/14/22 06:58 Hgb 13.1 g/dl (14.0-18.0) L 04/14/22 06:58 Hct 38.9 % (42.0-52.0) L 04/14/22 06:58 MCV 79.4 fL (80.0-100.0) L 04/14/22 06:58 MCH 26.7 pg (25.0-34.0) 04/14/22 06:58 MCHC 33.7 g/dL (32.0-36.0) 04/14/22 06:58 RDW Std Deviation 42.0 fL (36.4-46.3) 04/14/22 06:58 RDW Coeff of Alda 14.5 % (11.5-14.5) 04/14/22 06:58 Plt Count 267 K/uL (130-400) 04/14/22 06:58 MPV 8.8 fL (9.4-12.4) L 04/14/22 06:58 Immature Gran % (Auto) 0.1 % 04/14/22 06:58 Neut % (Auto) 72.4 % 04/14/22 06:58 Lymph % (Auto) 19.5 % 04/14/22 06:58 Summers % (Auto) 6.4 % 04/14/22 06:58 Eos % (Auto) 1.1 % 04/14/22 06:58 Baso % (Auto) 0.5 % 04/14/22 06:58 Neut # (Auto) 5.47 K/uL (1.40-6.50) 04/14/22 06:58 Lymph # (Auto) 1.47 K/uL (1.2-3.4) 04/14/22 06:58 Summers # (Auto) 0.48 K/uL (0.11-0.59) 04/14/22 06:58 Eos # (Auto) 0.08 K/uL (0-0.50) 04/14/22 06:58 Baso # (Auto) 0.04 K/uL (0-0.2) 04/14/22 06:58 Immature Gran # (Auto) 0.01 K/uL (0.01-0.20) 04/14/22 06:58 PT 11.2 Seconds (9.0-12.0) 04/14/22 06:58 INR 1.1 (0.9-1.1) 04/14/22 06:58 APTT 25.9 Seconds (21.0-31.0) 04/14/22 06:58 PTT Ratio 0.9 04/14/22 06:58 Sodium 137 mmol/L (136-145) 04/14/22 06:58 Potassium 4.3 mmol/L (3.5-5.1) 04/14/22 06:58 Chloride 105 mmol/L (98-107) 04/14/22 06:58 Carbon Dioxide 26 mmol/L (21-32) 04/14/22 06:58 Anion Gap 6 (3-11) 04/14/22 06:58 BUN 5 mg/dl (6-23) L 04/14/22 06:58 Creatinine 0.95 mg/dl (0.6-1.4) 04/14/22 06:58 Est Cr Clr Drug Dosing 115.1 ml/min 04/14/22 06:58 Est GFR ( Amer) 106.2 ml/min 04/14/22 06:58 Est GFR (Non-Af Amer) 91.7 ml/min 04/14/22 06:58 BUN/Creatinine Ratio 5.3 (10-20) L 04/14/22 06:58 Glucose 122 mg/dl (70-99(Fasting)) H 04/14/22 06:58 POC Glucose 159 mg/dl (70-99) H 04/14/22 08:03 Osmolality 265 mOsm/kg (280-300) L 04/10/22 17:13 Calcium 9.6 mg/dl (8.5-10.1) 04/14/22 06:58 Magnesium 1.8 mg/dl (1.7-2.4) 04/14/22 06:58 Total Bilirubin 1.1 mg/dl (0.2-1.0) H 04/14/22 06:58 Direct Bilirubin 0.4 mg/dl (0-0.2) H 04/10/22 17:19 AST 19 U/L (13-39) 04/14/22 06:58 ALT 14 U/L (7-52) 04/14/22 06:58 Alkaline Phosphatase 63 U/L (34-104) 04/14/22 06:58 Total Protein 6.6 gm/dl (6.0-8.3) 04/14/22 06:58 Albumin 4.1 gm/dl (3.4-5.0) 04/14/22 06:58 Globulin 2.5 gm/dl (2.5-4.0) 04/14/22 06:58 Albumin/Globulin Ratio 1.6 (0.9-2) 04/14/22 06:58 Lipase 6 U/L (11-82) L 04/10/22 17:19 Urine Osmolality 396 mOsm/kg (500-800) L 04/10/22 20:40 Ur Random Sodium 58 mmol/L 04/10/22 20:40 Nasal Screen MRSA (PCR) Negative (Negative) 04/11/22 00:07 Urine Opiates Screen Neg (Neg) 04/10/22 20:44 Ur Methadone, Qual Neg (Neg) 04/10/22 20:44 Urine Barbiturates Neg (Neg) 04/10/22 20:44 Ur Phencyclidine (PCP) Neg (Neg) 04/10/22 20:44 U Amphetamin/Meth Scrn Neg (Neg) 04/10/22 20:44 MDMA (Ecstasy) Screen Neg (Neg) 04/10/22 20:44 U Benzodiazepines Scrn Neg (Neg) 04/10/22 20:44 Ur Cocaine Metabolite Neg (Neg) 04/10/22 20:44 U Marijuana (THC) Screen Neg (Neg) 04/10/22 20:44 SARS-CoV-2, RNA, NAAT NEGATIVE (NEGATIVE) 04/10/22 21:19 Blood Type O Positive 04/10/22 17:13 Antibody Screen NEGATIVE 04/10/22 17:13 Impressions Abdomen/Pelvis CT 04/10/22 17:45 CT SCAN OF THE CHEST, ABDOMEN, AND PELVIS WITH IV CONTRAST CLINICAL HISTORY: Atypical chest pain. Nausea and vomiting. Hematemesis. COMPARISON STUDY: CT scan of the chest, abdomen, and pelvis dated 01/23/2022. TECHNIQUE: Following the IV administration of 87 of Optiray 350, CT scan of the chest, abdomen, and pelvis was performed from the thoracic inlet to the proximal femora. Images are reviewed in the axial, sagittal, and coronal planes. IV contrast was administered without complication. A dose lowering technique was utilized adhering to the principles of ALARA. The examinations are degraded by motion artifact. CT DOSE: 1203.42 mGy.cm FINDINGS: CHEST: Thyroid: Imaged portions of the thyroid gland are normal in size and attenuation. Thoracic aorta: The thoracic aorta is normal in caliber and demonstrates standard 3-vessel arch anatomy. No dissection is seen. Pulmonary vasculature: The pulmonary trunk is normal in caliber. There are no filling defects identified in the central pulmonary vessels to indicate pulmonary embolus. Note that this examination was not protocoled for evaluation of the pulmonary arteries. Heart: The heart is normal in size and without pericardial effusion. There are scattered coronary artery calcifications. Lungs and pleural spaces: Evaluation of the lung parenchyma is compromised by motion artifact. There is no airspace consolidation or pleural effusion. The trachea and central airways appear clear. Mediastinum: There is no mediastinal lymphadenopathy. Angelica: Clear. Axillae: There is no axillary lymphadenopathy. Bony thorax: There is a mild chronic superior endplate compression deformity of T4. No lytic or blastic lesions are identified. Arthritic change is noted in the shoulders. ABDOMEN AND PELVIS: Liver: The contrast-enhanced liver is normal in size, contour, and attenuation. There is no intrahepatic biliary ductal dilatation. The hepatic veins and portal veins are patent. Gallbladder: Unremarkable. Spleen: Normal in size and attenuation. Pancreas: Unremarkable. Adrenal glands: Unremarkable. Kidneys: The contrast enhanced kidneys are normal in size and without hydronephrosis. The kidneys enhance symmetrically. Abdominal vasculature: The abdominal aorta is normal in course and caliber. Bowel: There is no bowel obstruction. The appendix is well-visualized and normal. Peritoneum: There is no intraperitoneal free air or abdominal ascites. There is a small fat-containing umbilical hernia. Lymphadenopathy: None. Pelvic viscera: The bladder, prostate, and seminal vesicles are normal as vi sualized. Calcification of the penile tunica suggests Peyronie's. Skeletal structures: No lytic or blastic lesions are seen. IMPRESSION: 1. Motion compromised examinations. 2. No acute cardiopulmonary abnormality. 3. No acute infectious or inflammatory findings are seen in the abdomen or pelvis. 4. Additional findings as above. ACT 112: Negative or not required by law. Electronically signed by: Hunter Freitas M.D. 04/10/2022 7:50 PM Chest X-Ray 04/10/22 17:45 SINGLE VIEW CHEST CLINICAL HISTORY: Nausea and vomiting. FINDINGS: An AP, portable, upright chest radiograph is compared to chest x-ray and chest CT dated 01/23/2022. The cardiomediastinal silhouette is unremarkable. The lungs and pleural spaces are clear. No pneumothorax is seen. The bony thorax is grossly intact. IMPRESSION: No active disease in the chest. ACT 112: Negative or not required by law. Electronically signed by: Hunter Freitas M.D. 04/10/2022 7:[address] 04/10/22 17:47 CT SCAN OF THE CHEST, ABDOMEN, AND PELVIS WITH IV CONTRAST CLINICAL HISTORY: Atypical chest pain. Nausea and vomiting. Hematemesis. COMPARISON STUDY: CT scan of the chest, abdomen, and pelvis dated 01/23/2022. TECHNIQUE: Following the IV administration of 87 of Optiray 350, CT scan of the chest, abdomen, and pelvis was performed from the thoracic inlet to the proximal femora. Images are reviewed in the axial, sagittal, and coronal planes. IV contrast was administered without complication. A dose lowering technique was utilized adhering to the principles of ALARA. The examinations are degraded by motion artifact. CT DOSE: 1203.42 mGy.cm FINDINGS: CHEST: Thyroid: Imaged portions of the thyroid gland are normal in size and attenuation. Thoracic aorta: The thoracic aorta is normal in caliber and demonstrates standard 3-vessel arch anatomy. No dissection is seen. Pulmonary vasculature: The pulmonary trunk is normal in caliber. There are no filling defects identified in the central pulmonary vessels to indicate pulmonary embolus. Note that this examination was not protocoled for evaluation of the pulmonary arteries. Heart: The heart is normal in size and without pericardial effusion. There are scattered coronary artery calcifications. Lungs and pleural spaces: Evaluation of the lung parenchyma is compromised by motion artifact. There is no airspace consolidation or pleural effusion. The trachea and central airways appear clear. Mediastinum: There is no mediastinal lymphadenopathy. Angelica: Clear. Axillae: There is no axillary lymphadenopathy. Bony thorax: There is a mild chronic superior endplate compression deformity of T4. No lytic or blastic lesions are identified. Arthritic change is noted in the shoulders. ABDOMEN AND PELVIS: Liver: The contrast-enhanced liver is normal in size, contour, and attenuation. There is no intrahepatic biliary ductal dilatation. The hepatic veins and portal veins are patent. Gallbladder: Unremarkable. Spleen: Normal in size and attenuation. Pancreas: Unremarkable. Adrenal glands: Unremarkable. Kidneys: The contrast enhanced kidneys are normal in size and without hydronephrosis. The kidneys enhance symmetrically. Abdominal vasculature: The abdominal aorta is normal in course and caliber. Bowel: There is no bowel obstruction. The appendix is well-visualized and normal. Peritoneum: There is no intraperitoneal free air or abdominal ascites. There is a small fat-containing umbilical hernia. Lymphadenopathy: None. Pelvic viscera: The bladder, prostate, and seminal vesicles are normal as visualized. Calcification of the penile tunica suggests Peyronie's. Skeletal structures: No lytic or blastic lesions are seen. IMPRESSION: 1. Motion compromised examinations. 2. No acute cardiopulmonary abnormality. 3. No acute infectious or inflammatory findings are seen in the abdomen or pelvis. 4. Additional findings as above. ACT 112: Negative or not required by law. Electronically signed by: Hunter Freitas M.D. 04/10/2022 7:50 PM Brain MRI 04/12/22 12:11 MRI OF THE BRAIN WITHOUT IV CONTRAST CLINICAL HISTORY: Intractable hiccups. COMPARISON STUDY: No priors. TECHNIQUE: MRI of the brain was performed utilizing various T1 and T2-weighted sequences in the axial, sagittal, and coronal planes. IV contrast was not administered for this examination. The examination is modestly degraded by motion artifact. FINDINGS: Brain parenchyma: The brain parenchyma is normal in appearance. There is no hemorrhage or mass effect. There is no restricted diffusion to suggest acute ischemia. Brennan-white matter differentiation is preserved. Mineralization is noted in the basal ganglia. No extra-axial fluid collection is seen. The cerebellar tonsils are normal in configuration. Ventricles, sulci, and cisterns: Normal in configuration. Cavum septum pellucidum is incidentally noted. Pituitary and sella: Unremarkable. Intracranial vasculature: Normal flow voids are maintained at the skull base. Orbits: The bony orbits are grossly intact. Orbital contents are normal in appearance. Sinuses and mastoids: Clear. Calvarium: Unremarkable. Cervical cord: Partially visualized cervical spinal cord is normal in morphology and signal intensity. IMPRESSION: No intracranial abnormality is identified. ACT 112: Negative or not required by law. Electronically signed by: Hunter Freitas M.D. 04/12/2022 5:28 PM Soft Tissue Neck CT 04/12/22 12:15 CT SCAN OF THE NECK WITHOUT IV CONTRAST CLINICAL HISTORY: Intractable hiccups. Vomiting COMPARISON STUDY: No priors. TECHNIQUE: Unenhanced CT scan of the soft tissues of the neck was performed from the skull base to the upper chest. Images are reviewed in the axial, sagittal, and coronal planes. IV contrast was not administered for this examination. Note that the examination is significant suboptimal without IV contrast. A dose lowering technique was utilized adhering to the principles of ALARA. CT DOSE: 746.38 mGy.cm FINDINGS: Pharynx: The unenhanced pharyngeal soft tissues are grossly unremarkable. Layering secretions are noted in the pharynx. The pharyngeal airway is widely patent. There is no evidence of mass lesion. The vocal cords are symmetric. The parapharyngeal fat is well maintained. The prevertebral/retropharyngeal soft tissues are within normal limits. The epiglottis is normal. Lymphadenopathy: No cervical lymphadenopathy is seen. Thyroid: Normal in size and attenuation. Salivary glands: The parotid and submandibular glands are within normal limits. Brain parenchyma: The visualized brain parenchyma at the skull base is normal in appearance. Skeletal structures: Imaged portions of the calvarium at the skull base are within normal limits. The cervical spine appears intact. No lytic or blastic lesion is seen. Sinuses and mastoids: There is trace mucosal thickening within the frontal, ethmoid, and sphenoid sinuses. The mastoid air cells are well pneumatized. Orbits: The bony orbits are grossly intact. Orbital contents are normal as visualized. Lung apices: Visualized apical lung parenchyma is clear. IMPRESSION: No acute abnormality is identified on this unenhanced examination. ACT 112: Negative or not required by law. Electronically signed by: Hunter Freitas M.D. 04/12/2022 6:24 PM Hospital Course (1) Coagulopathy: (2) Intractable nausea and vomiting: (3) Hematemesis: (4) Elevated INR: Plan Roland is a 51-year-old male resident of [facility], with a past medical history including hypertension, hyperlipidemia, arthritis, diabetes mellitus, GERD, iron deficiency, peripheral neuropathy. He presented to the hospital and was admitted from 01/24-01/26/2022 with similar symptoms with a negative work-up at that time. His symptoms did resolve with conservative therapy.He reports vomiting blood since yesterday, after having several days of nausea and vomiting which began after his GI medications were discontinued 7 days ago in preparation of h. pylori testing. Intractable nausea and vomiting/hematemesis/GERD -Suspect that symptoms are related to PUD/reflux, possibly aggravated this past week after meds d/c in anticipation of h. pylori test -Similar presentation to admission from 01/24-01/26/2022 -Previously seen by gastroenterology, with no need for EGD at that time as symptoms are improving. -GI consulted: does not feel he needs emergent EGD -No signs of active bleed at this time, no hematemesis since arrive. Hemoglobin stable at mid 13's Plan: -Continue Protonix 40mg BID, famotidine daily at 1600 - Could consider adding Carafate - Follow up with GI for consideration of EGD as an OP Hiccups -Per chart review and discussion with patient, he had an initial episode of hiccups triggering N/V back in 2018 as well - Likely secondary GERD, improving with treatment of GERD - Given several episodes over several years and unable to complete EGD at this time, further workup was done; MRI brain and CT neck both negative Diabetes mellitus -Plan to resume home medications upon dc Coagulopathy -INR 4.0 with normal transaminases and not known to be on anticoagulation -Liver appears normal on CT -Patient did receive total of 10mg IV Vit. K since arrival, repeat INR has been normal -Toxic ingestion possible but less likely, severe malnutrition/lack of Vit. K in his diet also less likely as he states he has some veggies in his meals. -At this point suspect that lab error may be etiology. Plan - repeat INR 2 weeks post discharge Hypertension -plan to resume amlodipine, aspirin and lisinopril Hyponatremia -Sodium 126 on admission, resolved Hyperlipidemia -continue atorvastatin Peripheral neuropathy -Continue gabapentin Total Time Total Time Spent Total Time Spent (In Minutes): 40 Discharge Plan Discharge Items [facility]position[facility] Reason For Visit: HEMATEMESIS, COAGULOPATHY, HYPONATREMIA Discharge Diagnosis: GERD Activity: Per Instructions section Non-emergency contact: Primary Care Provider Call non-emergency contact if: you have any medication questions and your symptoms worsen Follow-up/Referrals: Mary CAMPO [Primary Care Provider] - Marely Horvath Jr, MD [Physician] - (Follow up with consideration for EGD) Diet: Regular Addtl Attending Provider Instructions: You were admitted to the hospital for nausea/vomiting and hiccups. We think this was likely secondary to GERD, which was made worse when you were off your pantoprazole with the indict of getting H Pylori testing. We restarted your pantoprazole and added famotidine to help with your reflux symptoms. Follow-up appointments: We have requested a follow-up appointment with the GI doctors. Medications: Your medication list has been reviewed and reconciled upon discharge to ensure accuracy and continuity of care. An updated list of all your medications is included with your hospital discharge paperwork. Please review this list closely, and make note of any changes. Pending Studies at Discharge: No Stand-Alone Forms: My [facility] Skilled Items Patient informed of condition?: Yes Discharge Level of Care: Other Communicable Disease: No Discharge Prognosis: Stable Lines: None Urinary Catheter: No Medications and DC Order Prescriptions: New famotidine 20 mg Tablet 20 mg PO Q24H Qty: 30 0RF pantoprazole 40 mg Tablet,Delayed Release (Dr/Ec) 40 mg PO BID Qty: 60 0RF Continued atorvastatin 40 mg Tablet 40 mg PO DAILY gabapentin 600 mg Tablet 600 mg PO BID Rx Instructions: [facility] Humulin 70/30 U-100 Insulin 100 unit/mL (70-30) Suspension 30 unit SUBCUT BID Humulin R Regular U-100 Insuln 100 unit/mL Solution 1 sliding scale dose SUBCUT UD Patient Comments: PER SLIDING SCALE aspirin 81 mg Tablet,Delayed Release (Dr/Ec) 81 mg PO BID ascorbic acid (vitamin C) [Vitamin C] 500 mg Tablet,Chewable 500 mg PO BIDM docusate sodium 100 mg Capsule 100 mg PO BID ferrous gluconate 324 mg (38 mg iron) Tablet 324 mg PO BIDM ondansetron HCl 4 mg Tablet 4 mg PO TID PRN (Reason: as directed) acetaminophen 500 mg Tablet 1,000 mg PO QID PRN (Reason: as directed) promethazine 25 mg/mL Solution 25 mg IM BID PRN (Reason: as directed) diclofenac sodium 1 % Gel 1 ea TOPICAL BID cholecalciferol (vitamin D3) 125 mcg (5,000 unit) Tablet 5,000 unit PO QAM Qty: 30 0RF lisinopril 40 mg Tablet 20 mg PO DAILY Qty: 15 0RF amlodipine 10 mg Tablet 10 mg PO DAILY metformin 1,000 mg Tablet 1,000 mg PO BID Discontinued famotidine [Acid Burlap Man (famotidine)] 10 mg Tablet 10 mg PO BID Qty: 60 0RF Discharge Orders: Discharge Order (Routine); Ordered 04/14/22 Ordered By: Glenny Mariano Admission Data Admit Date/Time: 04/10/22 21:32 Attending Provider: Ced Bliss Admit Provider: Nathan Zavala Primary Care Provider: Mary CAMPO Other Providers: Nathan Zavala ; Marely Horvath Jr Other Interventions: Discharge Summary Assessment (RN) Last Done: 04/14/22 16:29 Supervising Physician Co-Signing Physician Notes Attending attestation Pt seen and examined in concert with [facility]. Dr. Sal Guzman. In agreement with the documented findings as noted in the resident documentation with any exceptions or additions as noted here. Ongoing improvement in n/v and decreased frequency of hiccups. Symptoms predominantly with compression of abdomen (bending, twisting) and decreased overall, consistent with baseline. Reports no diarrhea/constipation, HUGHES, fever, CP/SOB, palpitations. On examination, S1/S2 nl RRR no MCG. CTAB. Abd NT/ND BS+ve GERD/gastritis - tolerating normal diet with symptoms at baseline - continue PPI, and evening famotidine and consider carafate in outpatient setting. Counseling and expectation setting provided. Concern per outpatient primary care for intentional intake of exogenous substances resulting in exacerbations and admission evaluations. Supratherapeutic INR on admission - resolved w/ Vit K and stable following without significant causative pathology c/w report re: exogenous intake above. HTN - restart home regimen Else see resident/student documentation as noted. Total attending physician time spent with this patient's care on the day of discharge: 40 minutes. Resident Activity Tracking Resident Involvement: Resident Care Provided Care Provided: Adult Hospital Medicine
[2022-04-14] MEDS: FAMOTIDINE 20 MG TAB PO SCH (17:04)
== END 2022-04-14 18:25 | DRG 392 ==
LOC: ED 17:00 → 2N 21:32 → SUATTDRO 21:32 → 2N 04-11 00:25 → 2W 04-11 18:08